=== PATIENT | female | born 1965 | race Caucasian/White ===

== ENCOUNTER 2023-07-02 22:22 | Emergency (ER) | payer OTHER ==
[2023-07-02] MEDS ORDERED: SUBLIMAZE 100 MCG/2 ML IV ONE (22:42)
[2023-07-02] MEDS ORDERED: BENADRYL 50 MG/ML IV ONE (22:42)
[2023-07-02] MEDS ORDERED: Sodium Chloride 0.9% 1000 ML 1,000 ML IV STA (22:42)
[2023-07-02 22:56] LABS: Hematocrit 40.8 % (35-47); Mean Cell Volume 86.1 fL (78-100); Mean Corpuscular Hemoglobin 29.5 pg (26-32); Mean Corpuscular Hgb Concent. 34.3 g/dL (32-36); Mean Platelet Volume 9.8 fL (7.5-11.0); Platelet Count 504 x10^3/uL (150-450); Red Blood Count 4.74 x10^6/uL (4.1-5.4); Red Cell Distribution Width 13.3 % (11.5-14.0)
[2023-07-02 22:57] LABS: White Blood Count 27.6 x10^3/uL (4.0-10.5)
--- NOTE | 2023-07-02 23:04 | ERPHSYRPT ---
- History of Present Illness Time Seen by Provider: 07/02/23 22:31 Historian: patient Exam Limitations: no limitations Patient Subjective Stated Complaint: pt states that around noon today she started having bilat lower abd/ pelvic, and mid lower back pain that she current ly rates at 9/10 and describes as a constant stabbing/ sharp pain. around noon she took a couple of laxatives, then a couple more laxatives around 1800, and 4mg ODT zofran around 1500. pt thought she was constipated but had a normal for her BM today. decreased appetite today due to pain, reports pain with urination. Triage Nursing Assessment: pt ambulated to room 8 independently with slow steady gait after standing on scales for weight acquisition. pt denies needing to u rinate at this time but is aware of need for urine sample. pt walks bent over and clutching her lower abdomen. pt is alert and oriented times three, able to move all extremities, able to speak in complete sentences, and with resp even and unlabored. pt writhing in bed, frequently changing position, moaning as she clutches her lower abdomen. abd is soft, obese, tender to touch, with positive bowel sounds in all quadrants. states pain radiates to bilat pelvis and it is painful to urinate. denies sob, difficulty breathing, cp, lightheadeness, or dizziness. Physician History: Patient had a sudden onset of lower abdominal pain 10 hours prior to come the emergency department that has persisted. She thought she may have been constipated but had a bowel movement today. Timing/Duration: hour(s) (10) Activities at Onset: none Quality: sharpness, stabbing Abdominal Pain Onset Location: RLQ, LLQ, suprapubic Pain Radiation: no radiation Severity of Pain-Max: severe Severity of Pain-Current: severe Modifying Factors: Improves With: nothing Associated Symptoms: No back, No chest pain, No diaphoresis, No diarrhea, No fever/chills, No headache, No heartburn, No loss of appetite, No nausea, No neck pain, No shortness of breath, No syncope, No vomiting, No weakness Previous symptoms: no prior history, no recent treatment Allergies/Adverse Reactions: ciprofloxacin [From Cipro] Allergy (Verified 07/02/23 22:31) Hives Home Medications: ALPRAZolam 1 MG [Xanax 1 mg] 1 mg PO TID 07/02/23 [History] Atorvastatin Calcium [Lipitor] 10 mg PO HS 07/02/23 [History] Clonidine HCl 0.1 mg [Clonidine 0.1 mg Tablet] 2 tab PO BID 07/02/23 [History] Fenofibrate 160 mg PO HS 07/02/23 [History] Fluoxetine HCl 20 mg [Prozac 20 MG] 20 mg PO DAILY 07/02/23 [History] Omeprazole Magnesium [Prilosec Otc] 20 mg PO DAILY 07/02/23 [History] Ondansetron ODT 4 MG [Zofran Odt 4 mg] 4 mg PO BID PRN PRN 07/02/23 [History] Quetiapine Fumarate [Seroquel] 300 mg PO HS PRN PRN 07/02/23 [History] Hx Tetanus, Diphtheria Vaccination/Date Given: Yes (UNKNOWN) Hx Influenza Vaccination/Date Given: Yes Hx Pneumococcal Vaccination/Date Given: No Immunizations Up to Date: Yes Travel Risk - International Travel Have you traveled outside of the country in past 3 weeks: No - Coronavirus Screening Are you exhibiting any of the following symptoms?: No Close contact with a COVID-19 positive Pt in past 14-21 Days: No - Vaccine Status Have you recieved a Covid-19 vaccination: Yes Entry Operator: Moderna - Vaccination Dates Date of 2cond Vaccination (if applicable): unknown - Review of Systems Constitutional: No Fever, No Chills Eyes: No Symptoms, No Eye Pain, No Vision Changes Ears, Nose, & Throat: No Symptoms, No Nose Congestion, No Mouth Pain, No Throat Pain Respiratory: No Cough, No Dyspnea Cardiac: No Chest Pain, No Edema, No Syncope Abdominal/Gastrointestinal: Abdominal Pain, No Nausea, No Vomiting, No Diarrhea, No Hematemesis, No Hematochezia, No Melena Genitourinary Symptoms: Dysuria, No Hematuria, No Flank Pain, No Vaginal Discharge Musculoskeletal: No Back Pain, No Neck Pain Skin: No Rash Neurological: No Dizziness, No Focal Weakness, No Sensory Changes Psychological: No Symptoms Endocrine: No Symptoms All Other Systems: Reviewed and Negative - Past Medical History Pertinent Past Medical History: Yes Neurological History: No Pertinent History ENT History: No Pertinent History Cardiac History: No Pertinent History Respiratory History: No Pertinent History Endocrine Medical History: No Pertinent History Musculoskeletal History: Arthritis, Fractures GI Medical History: Diverticulitis, Diverticulosis, GERD History: No Pertinent History Psycho-Social History: Anxiety, Depression Female Reproductive Disorders: Endometriosis Other Medical History: HISTORY OF RECENT BLOCKAGE 2012 - Past Surgical History Past Surgical History: Yes Neuro Surgical History: No Pertinent History Cardiac: No Pertinent History Respiratory: No Pertinent History Gastrointestinal: Cholecystectomy, Other Genitourinary: No Pertinent History Musculoskeletal: Orthopedic Surgery Female Surgical History: Hysterectomy Other Surgical History: Fracture of R foot in 2010. ex lap. bowel obstruction repair. - Social History Smoking Status: Current every day smoker How long have you smoked: 2012 Exposure to second hand smoke: Yes Alcohol Use: Socially Drug Use: none Patient Lives Alone: No Significant Family History: no pertinent family hx - Nursing Vital Signs Nursing Vital Signs: Initial Vital Signs Temperature 97.3 F 07/02/23 22:31 Pulse Rate 95 H 07/02/23 22:31 Respiratory Rate 20 07/02/23 22:31 Blood Pressure 112/78 07/02/23 22:31 O2 Sat by Pulse Oximetry 99 07/02/23 22:31 Pain Scale Pain Intensity 9 - Physical Exam General Appearance: no apparent distress, alert Eye Exam: PERRL/EOMI, eyes nml inspection, No scleral icterus Ears, Nose, Throat Exam: normal ENT inspection, pharynx normal, moist mucous membranes, No dry mucous membranes Neck Exam: normal inspection, non-tender, supple, full range of motion Respiratory Exam: normal breath sounds, lungs clear, No respiratory distress Cardiovascular Exam: regular rate/rhythm, normal heart sounds, normal peripheral pulses, capillary refill <2 sec Gastrointestinal/Abdomen Exam: soft, normal bowel sounds, No tenderness, No mass, No guarding, No ecchymosis, No rebound Back Exam: normal inspection, normal range of motion, No CVA tenderness, No v ertebral tenderness Extremity Exam: normal inspection, normal range of motion, pelvis stable Neurologic Exam: alert, oriented x 3, cooperative, hand developer II-XII nml as tested, normal mood/affect, sensation nml, No motor deficits Skin Exam: normal color, warm, dry, No rash, No petechiae, No jaundice SpO2 Interpretation: normal SpO2: 99 O2 Delivery: Room Air - Course Nursing assessment & vital signs reviewed: Yes - CT Exams Abdomen/Pelvis CT Interpretation: No appendicitis, Other (Hepatic steatosis; fecal loaded large colon; no significant changes since previous study dated 10/07/2013) Ordered Tests: Active Orders 24 hr Category Date Time Status IV Insertion STAT Care 07/02/23 22:42 Active ABDOMEN AND PELVIS W/0 CONTRAS [CT] Stat Exams 07/02/23 22:42 Completed CBC W DIFF Stat Lab 07/02/23 22:50 Completed CMP Stat Lab 07/02/23 22:50 Completed LIPASE Stat Lab 07/02/23 22:50 Completed Lactic Acid Stat Lab 07/02/23 23:30 Completed Lactic Acid Stat Lab 07/03/23 01:33 Received Manual Differential NC Stat Lab 07/02/23 22:50 Completed PROTIME WITH INR Stat Lab 07/02/23 22:50 Completed TROPONIN Q4H Lab 07/02/23 22:50 Completed TROPONIN Q4H Lab 07/03/23 02:45 Ordered TROPONIN Q4H Lab 07/03/23 06:45 Ordered UA W/RFX UR CULTURE Stat Lab 07/02/23 00:58 Completed Medication Summary Discontinued Medications Generic Name Dose Route Start Last Admin Trade Name Freq PRN Reason Stop Dose Admin Diphenhydramine HCl 25 mg 07/02/23 22:42 07/02/23 23:12 Diphenhydramine Hcl 50 Mg/Ml Vial IV 07/02/23 22:43 25 mg STAT ONE Administration Diphenhydramine HCl Confirm 07/02/23 23:09 Diphenhydramine Hcl 50 Mg/Ml Vial Administered 07/02/23 23:10 Dose 50 mg .ROUTE .STK-MED ONE Fentanyl Citrate 50 mcg 07/02/23 22:42 07/02/23 23:11 Fentanyl Citrate 100 Mcg/2 Ml* Vial IV 07/02/23 22:43 50 mcg STAT ONE Administration Fentanyl Citrate Confirm 07/02/23 23:09 Fentanyl Citrate 100 Mcg/2 Ml* Vial Administered 07/02/23 23:10 Dose 100 mcg .ROUTE .STK-MED ONE Hydromorphone HCl 1 mg 07/02/23 23:51 07/03/23 01:11 Hydromorphone 1 Mg/1ml Inj IV 07/02/23 23:52 Not Given STAT ONE Hydromorphone HCl 1 mg 07/03/23 01:04 07/03/23 01:09 Hydromorphone 1 Mg/1ml Inj SQ 07/03/23 01:05 1 mg STAT ONE Administration Hydromorphone HCl Confirm 07/03/23 01:06 Hydromorphone 1 Mg/1ml Inj Administered 07/03/23 01:07 Dose 1 mg .ROUTE .STK-MED ONE Sodium Chloride 1,000 mls @ 999 mls/hr 07/02/23 22:42 07/03/23 00:27 Sodium Chloride 0.9% 1000 Ml IV 07/02/23 23:42 Infused .Q1H1M STA Infusion Sodium Chloride Confirm 07/02/23 23:09 Sodium Chloride 0.9% 1000 Ml Administered 07/02/23 23:10 Dose 1,000 mls @ ud .ROUTE .STK-MED ONE Lab/Rad Data: Laboratory Result Diagrams 07/02/23 22:50 07/02/23 22:50 Laboratory Results 07/02/23 07/02/23 07/02/23 Range/Units 23:30 22:50 22:50 WBC (4.0-10.5) x10^3/uL RBC (4.1-5.4) x10^6/uL Hgb (12.0-16.0) g/dL Hct (35-47) % MCV (78-100) fL MCH (26-32) pg MCHC (32-36) g/dL RDW (11.5-14.0) % Plt Count (150-450) x10^3/uL MPV (7.5-11.0) fL Segmented Neutrophils (36.0-66.0) % Lymphocytes (Manual) (24-44) % Monocytes (Manual) (0.0-12.0) % Eosinophils (Manual) (0.00-3.0) % Basophils (Manual) (0.0-1.0) % Platelet Estimate (NORMAL) RBC Morphology PT 10.3 (9.4-12.5) SECONDS INR 0.94 (0.8-3.0) Sodium (137-145) mmol/L Potassium (3.5-5.1) mmol/L Chloride (98-107) mmol/L Carbon Dioxide (22-30) mmol/L Anion Gap (5-15) MEQ/L BUN (7-17) mg/dL Creatinine (0.52-1.04) mg/dL Estimated GFR ML/MIN Glucose (74-106) mg/dL Lactic Acid 1.9 (0.4-2.0) Calcium (8.4-10.2) mg/dL Total Bilirubin (0.2-1.3) mg/dL AST (14-36) U/L ALT (0-35) U/L Alkaline Phosphatase (38-126) U/L Troponin I < 0.012 (0.000-0.034) ng/mL Serum Total Protein (6.3-8.2) g/dL Albumin (3.5-5.0) g/dL Lipase (23-300) U/L Urine Color (Yellow) Urine Appearance (Clear) Urine pH (4.6-8.0) Ur Specific [place] (1.005-1.030) Urine Protein (Negative) Urine Glucose (UA) (Negative) mg/dL Urine Ketones (Negative) Urine Blood (Negative) Urine Nitrite (Negative) Urine Bilirubin (Negative) Urine Urobilinogen (0.2) mg/dL Ur Leukocyte Esterase (Negative) U Hyaline Cast (Auto) (0-2) /LPF Urine Microscopic RBC (0-5) /HPF Urine Microscopic WBC (0-5) /HPF Ur Epithelial Cells (None Seen) /HPF Urine Bacteria (None Seen) /HPF Urine Culture Reflexed (NO) 07/02/23 07/02/23 07/02/23 Range/Units 22:50 22:50 00:58 WBC 27.6 H* (4.0-10.5) x10^3/uL RBC 4.74 (4.1-5.4) x10^6/uL Hgb 14.0 (12.0-16.0) g/dL Hct 40.8 (35-47) % MCV 86.1 (78-100) fL MCH 29.5 (26-32) pg MCHC 34.3 (32-36) g/dL RDW 13.3 (11.5-14.0) % Plt Count 504 H (150-450) x10^3/uL MPV 9.8 (7.5-11.0) fL Segmented Neutrophils 74 H (36.0-66.0) % Lymphocytes (Manual) 22 L (24-44) % Monocytes (Manual) 2 (0.0-12.0) % Eosinophils (Manual) 1 (0.00-3.0) % Basophils (Manual) 1 (0.0-1.0) % Platelet Estimate INCREASED (NORMAL) RBC Morphology NORMAL PT (9.4-12.5) SECONDS INR (0.8-3.0) Sodium 136 L (137-145) mmol/L Potassium 3.9 (3.5-5.1) mmol/L Chloride 105 (98-107) mmol/L Carbon Dioxide 19 L (22-30) mmol/L Anion Gap 15.6 H (5-15) MEQ/L BUN 15 (7-17) mg/dL Creatinine 1.09 H (0.52-1.04) mg/dL Estimated GFR 55.4 ML/MIN Glucose 113 H (74-106) mg/dL Lactic Acid (0.4-2.0) Calcium 8.8 (8.4-10.2) mg/dL Total Bilirubin 0.40 (0.2-1.3) mg/dL AST 23 (14-36) U/L ALT 21 (0-35) U/L Alkaline Phosphatase 88 (38-126) U/L Troponin I (0.000-0.034) ng/mL Serum Total Protein 7.2 (6.3-8.2) g/dL Albumin 4.4 (3.5-5.0) g/dL Lipase 30 (23-300) U/L Urine Color Yellow (Yellow) Urine Appearance Clear (Clear) Urine pH 6.0 (4.6-8.0) Ur Specific [place] 1.010 (1.005-1.030) Urine Protein Negative (Negative) Urine Glucose (UA) Negative (Negative) mg/dL Urine Ketones Negative (Negative) Urine Blood Negative (Negative) Urine Nitrite Negative (Negative) Urine Bilirubin Negative (Negative) Urine Urobilinogen 0.2 (0.2) mg/dL Ur Leukocyte Esterase Trace A (Negative) U Hyaline Cast (Auto) NONE SEEN (0-2) /LPF Urine Microscopic RBC 0-2 (0-5) /HPF Urine Microscopic WBC 6-10 A (0-5) /HPF Ur Epithelial Cells None Seen (None Seen) /HPF Urine Bacteria Few A (None Seen) /HPF Urine Culture Reflexed NO (NO) - Progress Progress: improved, re-examined Progress Note: 07/02/23 23:44 Patient's pain and nausea have improved significantly after medication and she does not request any other medication at this time 07/03/23 01:36 Patient feels much better and has no tenderness, guarding or rebound on repeat abdominal examination. I reviewed her lab results and her CT scan results 07/03/23 01:42 Patient is a 57-year-old female came in emergency room due to having severe lower abdominal pain through most of the day of 07/03/2023. Patient had elevated white blood cell count, and so with her symptoms and elevated white blood cell count, CT of the abdomen pelvis was performed but did not show any etiology to her symptoms as there is no significant change in comparison to previous CT scan of the abdomen pelvis from 10 years earlier. Patient did have signs hepatic steatosis as well as a large stool burden throughout the colon, and this large stool burden may be causing her symptoms at this time. Patient at this time will be sent home as her pain was well controlled with IV medications given here in the emergency room and and she will be given a prescription for MiraLAX to once daily until she has diarrhea to help unload that large burden of stool seen on the CT scan imaging. Patient is return back to the nearest emergency room if she has any fever, new melena, hematochezia, new localized abdominal pain, any flank pain, new hematuria, new numbness or tingling or weakness in lower extremities, new perineal numbness, new diarrhea she cannot control, urinary ten vania, new chest pain, new dyspnea, or any other concerning signs or symptoms that were not present at today's emergency department visit for immediate reevaluation in the nearest emergency department Counseled pt/family regarding: lab results, diagnosis, need for follow-up, rad results - Departure Departure Disposition: Home Clinical Impression: Lower abdominal pain, Hepatic steatosis, Dysuria Leukocytosis, unspecified Qualifiers: Leukocytosis type: unspecified Qualified Code(s): D72.829 - Elevated white blood cell count, unspecified Constipation Qualifiers: Constipation type: unspecified constipation type Qualified Code(s): K59.00 - Constipation, unspecified Condition: Good Critical Care Time: No Referrals: HEIDI MCCARTHY NP [Primary Care Provider] - Follow up with PCP 1 day Instructions: Severe Abdominal Pain, Adult (DC), Constipation, Adult (DC), Nonalcoholic Fatty Liver Disease (DC) Additional Instructions: Return back to the nearest emergency room if you have any worsening abdominal pain, new fever, new black or red stools, any back pain, new painful urination, new blood in your urine, new shortness of breath, new chest pain, inability urinate or have a bowel movement, new diarrhea cannot control, new weakness or numbness in your legs or any other concerning signs or symptoms that were not present at today's emergency room visit for immediate reevaluation in the nearest emergency department Prescriptions: Polyethylene Glycol 3350 17 gm [Miralax Powder 17GM PACKET] 17 gm PO DAILY PRN #7 packet PRN Reason: Constipation
[2023-07-02 23:05] VITALS: RESP 20; TEMP 97.3
[2023-07-02 23:08] LABS: INR 0.94 (0.8-3.0); PROTIME 10.3 SECONDS (9.4-12.5)
[2023-07-02] MEDS ORDERED: BENADRYL 50 MG/ML ONE (23:09)
[2023-07-02] MEDS ORDERED: SUBLIMAZE 100 MCG/2 ML ONE (23:09)
[2023-07-02] MEDS ORDERED: Sodium Chloride 0.9% 1000 ML 1,000 ML ONE (23:09)
[2023-07-02 23:44] LABS: Basophil 1 % (0.0-1.0); Eosinophil 1 % (0.00-3.0); Lymphocytes 22 % (24-44); Monocyte 2 % (0.0-12.0); Neutrophils 74 % (36.0-66.0); Platelet Estimate INCREASED (NORMAL); Total Cells Counted 100
[2023-07-02 23:46] VITALS: O2SAT 99
[2023-07-02 23:47] LABS: ALBUMIN 4.4 g/dL (3.5-5.0); ANION GAP 15.6 MEQ/L (5-15); BILIRUBIN,TOTAL 0.4 mg/dL (0.2-1.3); Calcium 8.8 mg/dL (8.4-10.2); Creatinine 1 1.09 mg/dL (0.52-1.04); EST GLOMERULAR FILTRATION RATE 55.4 ML/MIN; Potassium 3.9 mmol/L (3.5-5.1); Total Protein 7.2 g/dL (6.3-8.2)
[2023-07-02] MEDS ORDERED: Hydromorphone 1 mg/ml Injection IV ONE (23:51)
[2023-07-03] MEDS ORDERED: Hydromorphone 1 mg/ml Injection SQ ONE (01:04)
[2023-07-03] MEDS ORDERED: Hydromorphone 1 mg/ml Injection ONE (01:06)
[2023-07-03 01:09] LABS: Appearance Clear (Clear); Bacteria Few /HPF (None Seen); Bilirubin Negative (Negative); Blood Negative (Negative); Epithelial Cells None Seen /HPF (None Seen); Glucose, Urine Negative (Negative); Hyaline Casts NONE SEEN /LPF (0-2); Ketones Negative (Negative); Leukocyte Esterase Trace (Negative); Nitrite Negative (Negative); Protein,Urine Dip Negative (Negative); RBC 0-2 /HPF (0-5); Urobilinogen 0.2 mg/dL (0.2)
[2023-07-03 01:10] LABS: ADD URINE CULTURE? NO (NO)
[2023-07-03 01:11] VITALS: BP 100/84; PULSE 70
--- NOTE | 2023-07-03 01:21 | XRAY ---
CLINICAL HISTORY:lower abdominal pain COMPARISON:10/07/2013. TECHNIQUE:A CT scan of the abdomen and pelvis was performed with delayed phase contrast imaging. Coronal and sagittal reconstructive images were also obtained. 35 cc Isovue 370. FINDINGS: Sections of the lower thorax show a 7 mm calcified nodule in the subpleural aspect of the right middle lobe anteriorly. Subpleural haziness and reticulation seen in the posterior aspect of both lower lobes. Abdomen. The liver is prominent in size, measuring 15.8 cm craniocaudally, and shows fatty changes. No focal or diffuse parenchymal abnormality. The portal vein, intrahepatic biliary radicals and the bile ducts are normal. The spleen, pancreas, and adrenal glands are unremarkable. The kidneys are unremarkable. They are normal in size and shape. No calculi or hydronephrosis. The gallbladder is surgically removed. The large bowel is loaded with fecal matter. The visualized small bowel loops are unremarkable. There is no evidence of significant enlargement of the mesenteric or retroperitoneal lymph nodes. Few calcified plaques are seen in the abdominal aorta. Pelvis: The urinary bladder is unremarkable. The rectosigmoid colon is unremarkable. The uterus is surgically removed. No evidence of pelvic lymphadenopathy. No significant bony abnormality was noted. IMPRESSION: 1. Hepatic steatosis 2. Fecal-loaded large colon 3. No significant interval changes seen since the previous study dated 10/07/2013. Electronically Signed by: Miquel Jane MD. (07/03/2023 00:20:58 [employer] MASTER ANALYST)
== END 2023-07-03 02:00 | disposition home or self-care (01) ==
LOC: ED 22:22
DX: R10.30 Lower abdominal pain, unspecified (principal); K76.0 Fatty (change of) liver, not elsewhere classified; R30.0 Dysuria; D72.829 Elevated white blood cell count, unspecified; K59.00 Constipation, unspecified; Z79.899 Other long term (current) drug therapy; Z72.0 Tobacco use
CPT/HCPCS: 36000; 36415; 74176; 80053; 81001; 83605; 83690; 84484; 85025; 85610; 96360; 96372; 96374; 96375; 99284; J1170; J1200; J3010

== ENCOUNTER 2023-07-03 12:28 | Observation (INO) | payer OTHER ==
[2023-07-03] MEDS ORDERED: Hydromorphone 1 mg/ml Injection IV ONE ×2 (12:46→14:06)
[2023-07-03] MEDS ORDERED: Sodium Chloride 0.9% 1000 ML 1,000 ML IV STA (12:46)
[2023-07-03] MEDS ORDERED: Zofran 4 MG/2 ML VIAL IV ONE (12:46)
[2023-07-03] MEDS ORDERED: Zofran 4 MG/2 ML VIAL ONE (12:51)
[2023-07-03] MEDS ORDERED: Hydromorphone 1 mg/ml Injection ONE ×2 (12:51→13:40)
[2023-07-03] MEDS ORDERED: Sodium Chloride 0.9% 1000 ML 1,000 ML ONE (12:51)
--- NOTE | 2023-07-03 13:09 | ERPHSYRPT ---
- History of Present Illness Time Seen by Provider: 07/03/23 12:35 Historian: patient Exam Limitations: no limitations Patient Subjective Stated Complaint: C/O lower abominal pain that radiates through to her lower middle back. States pain started around 12noon yesterday. Patient states she was in the ER yesterday but pain has increased since that time so she has returned for further evaluation. Triage Nursing Assessment: Patient brought back to ER in W/C. She is anxious and crying. Patient breathing heavy; instructed to take slow deep breaths. RAMIRES WNL. Bowel sounds present; more active on the left. Abdomen is firm. Patient denies diarrhea. States she vomited on the way into the ER today. Physician History: Crying hyperventilating 57-year-old white female who has had belly pain since yesterday. She was seen in the ER at that time she had a white count of 27,[address] scan which was only positive for constipation. She says that she had a normal bowel movement yesterday. She took MiraLAX at home this morning. Timing/Duration: yesterday Activities at Onset: none Quality: cramping, sharpness, stabbing Abdominal Pain Onset Location: generalized abdomen Pain Radiation: no radiation Severity of Pain-Max: severe Severity of Pain-Current: severe Associated Symptoms: chest pain Previous symptoms: same symptoms as today (Seen yesterday for same symptoms.) Allergies/Adverse Reactions: ciprofloxacin [From Cipro] Allergy (Verified 07/03/23 12:30) Hives Home Medications: ALPRAZolam 1 MG [Xanax 1 mg] 1 mg PO TID 07/02/23 [History] Atorvastatin Calcium [Lipitor] 10 mg PO HS 07/02/23 [History] Clonidine HCl 0.1 mg [Clonidine 0.1 mg Tablet] 2 tab PO BID 07/02/23 [History] Fenofibrate 160 mg PO HS 07/02/23 [History] Fluoxetine HCl 20 mg [Prozac 20 MG] 20 mg PO DAILY 07/02/23 [History] Omeprazole Magnesium [Prilosec Otc] 20 mg PO DAILY 07/02/23 [History] Ondansetron ODT 4 MG [Zofran Odt 4 mg] 4 mg PO BID PRN PRN 07/02/23 [History] Quetiapine Fumarate [Seroquel] 300 mg PO HS PRN PRN 07/02/23 [History] Hx Tetanus, Diphtheria Vaccination/Date Given: Yes (UNKNOWN) Hx Influenza Vaccination/Date Given: Yes Hx Pneumococcal Vaccination/Date Given: No Immunizations Up to Date: Yes Travel Risk - International Travel Have you traveled outside of the country in past 3 weeks: No - Coronavirus Screening Are you exhibiting any of the following symptoms?: No Close contact with a COVID-19 positive Pt in past 14-21 Days: No - Vaccine Status Have you recieved a Covid-19 vaccination: Yes Dumper Operator: Moderna - Vaccination Dates Date of 2cond Vaccination (if applicable): unknown - Review of Systems Constitutional: No Fever, No Chills Eyes: No Symptoms Ears, Nose, & Throat: No Symptoms Respiratory: No Cough, No Dyspnea Cardiac: Chest Pain, No Edema, No Syncope Abdominal/Gastrointestinal: Abdominal Pain, Nausea, No Vomiting, No Diarrhea Genitourinary Symptoms: No Dysuria Musculoskeletal: No Back Pain, No Neck Pain Skin: No Rash Neurological: No Dizziness, No Focal Weakness, No Sensory Changes Psychological: No Symptoms Endocrine: No Symptoms All Other Systems: Reviewed and Negative - Past Medical History Pertinent Past Medical History: Yes Neurological History: No Pertinent History ENT History: No Pertinent History Cardiac History: High Cholesterol, Hypertension Respiratory History: No Pertinent History Endocrine Medical History: No Pertinent History Musculoskeletal History: Arthritis, Fractures GI Medical History: Diverticulitis, Diverticulosis, GERD, Gallbladder Disease History: No Pertinent History Psycho-Social History: Anxiety, Depression Female Reproductive Disorders: Endometriosis Other Medical History: Bowel BLOCKAGE 2012, insomnia - Past Surgical History Past Surgical History: Yes Neuro Surgical History: No Pertinent History Cardiac: No Pertinent History Respiratory: No Pertinent History Gastrointestinal: Cholecystectomy, Other Genitourinary: No Pertinent History Musculoskeletal: Orthopedic Surgery Female Surgical History: Hysterectomy Other Surgical History: Fracture of R foot in 2010. ex lap. bowel obstruction repair. - Social History Smoking Status: Current every day smoker How long have you smoked: 2012 Exposure to second hand smoke: Yes Alcohol Use: Socially Drug Use: none Patient Lives Alone: No Significant Family History: no pertinent family hx - Nursing Vital Signs Nursing Vital Signs: Initial Vital Signs Temperature 98.3 F 07/03/23 12:29 Pulse Rate 112 H 07/03/23 12:29 Respiratory Rate 30 H 07/03/23 12:29 Blood Pressure 149/78 07/03/23 12:29 O2 Sat by Pulse Oximetry 98 07/03/23 12:29 Pain Scale Pain Intensity 10 - Physical Exam General Appearance: moderate distress, alert Eye Exam: PERRL/EOMI, eyes nml inspection, other (Crying and hyperventilating) Ears, Nose, Throat Exam: normal ENT inspection, pharynx normal, moist mucous membranes Neck Exam: normal inspection, non-tender, supple, full range of motion Respiratory Exam: normal breath sounds, lungs clear, other (Hyperventilation), No respiratory distress Cardiovascular Exam: regular rate/rhythm, normal heart sounds Gastrointestinal/Abdomen Exam: tenderness, distention, guarding, rebound, other (Tympanitic), No mass Back Exam: normal inspection, normal range of motion, No CVA tenderness, No vertebral tenderness Extremity Exam: normal inspection, normal range of motion, pelvis stable Neurologic Exam: alert, oriented x 3, cooperative, normal mood/affect, nml cerebellar function, sensation nml, No motor deficits Skin Exam: normal color, warm, dry SpO2 Interpretation: normal SpO2: 98 O2 Delivery: Room Air - Course Nursing assessment & vital signs reviewed: Yes EKG Interpreted by Me: RATE ( 95), Sinus Rhythm, NORMAL AXIS, NORMAL INTERVALS, Non-specific ST Changes - CT Exams Chest CT Interpretation: Negative, Other (Reviewed by me) Abdomen/Pelvis CT Interpretation: Other (Reviewed by me) Ordered Tests: Active Orders 24 hr Category Date Time Status EKG-ER Only STAT Care 07/03/23 12:46 Active IV Insertion STAT Care 07/03/23 12:46 Active ABDOMEN AND PELVIS W/0 CONTRAS [CT] Stat Exams 07/03/23 12:47 Completed CHEST 1 VIEW (PORTABLE) Stat Exams 07/03/23 12:47 Completed PELVIC [US] Stat Exams 07/03/23 15:05 Stop Req AMYLASE Stat Lab 07/03/23 12:50 Completed CBC W DIFF Stat Lab 07/03/23 12:50 Completed CMP Stat Lab 07/03/23 12:50 Completed LIPASE Stat Lab 07/03/23 12:50 Completed Lactic Acid Stat Lab 07/03/23 12:50 Completed Lactic Acid Stat Lab 07/03/23 15:04 Stop Req PROTIME WITH INR Stat Lab 07/03/23 12:50 Completed TROPONIN Q4H Lab 07/03/23 12:50 Completed TROPONIN Q4H Lab 07/03/23 17:00 Ordered TROPONIN Q4H Lab 07/03/23 21:00 Ordered UA W/RFX UR CULTURE Stat Lab 07/03/23 12:47 Ordered Urine Triage Profile Stat Lab 07/03/23 12:47 Ordered Medication Summary Discontinued Medications Generic Name Dose Route Start Last Admin Trade Name Armando PRN Reason Stop Dose Admin Dicyclomine HCl 20 mg 07/03/23 14:43 07/03/23 14:45 Dicyclomine Hcl 20 Mg Tablet PO 07/03/23 14:44 20 mg STAT ONE Administration Dicyclomine HCl Confirm 07/03/23 14:44 Dicyclomine Hcl 20 Mg Tablet Administered 07/03/23 14:45 Dose 20 mg .ROUTE .STK-MED ONE Hydromorphone HCl 1 mg 07/03/23 12:46 07/03/23 12:53 Hydromorphone 1 Mg/1ml Inj IV 07/03/23 12:47 1 mg STAT ONE Administration Hydromorphone HCl Confirm 07/03/23 12:51 Hydromorphone 1 Mg/1ml Inj Administered 07/03/23 12:52 Dose 1 mg .ROUTE .STK-MED ONE Hydromorphone HCl Confirm 07/03/23 13:40 Hydromorphone 1 Mg/1ml Inj Administered 07/03/23 13:41 Dose 1 mg .ROUTE .STK-MED ONE Hydromorphone HCl 1 mg 07/03/23 14:06 07/03/23 13:41 Hydromorphone 1 Mg/1ml Inj IV 07/03/23 14:07 1 mg STAT ONE Administration Sodium Chloride 1,000 mls @ 999 mls/hr 07/03/23 12:46 07/03/23 13:57 Sodium Chloride 0.9% 1000 Ml IV 07/03/23 13:46 Infused .Q1H1M STA Infusion Sodium Chloride Confirm 07/03/23 12:51 Sodium Chloride 0.9% 1000 Ml Administered 07/03/23 12:52 Dose 1,000 mls @ ud .ROUTE .STK-MED ONE Ondansetron HCl 4 mg 07/03/23 12:46 07/03/23 12:53 Ondansetron Hcl 4 Mg/2 Ml Vial IV 07/03/23 12:47 4 mg STAT ONE Administration Ondansetron HCl Confirm 07/03/23 12:51 Ondansetron Hcl 4 Mg/2 Ml Vial Administered 07/03/23 12:52 Dose 4 mg .ROUTE .STK-MED ONE Lab/Rad Data: Laboratory Result Diagrams 07/03/23 12:50 07/03/23 12:50 Laboratory Results 07/03/23 07/03/23 07/03/23 Range/Units 12:50 12:50 12:50 WBC (4.0-10.5) x10^3/uL RBC (4.1-5.4) x10^6/uL Hgb (12.0-16.0) g/dL Hct (35-47) % MCV (78-100) fL MCH (26-32) pg MCHC (32-36) g/dL RDW (11.5-14.0) % Plt Count (150-450) x10^3/uL MPV (7.5-11.0) fL Gran % (36.0-66.0) % Immature Gran % (Auto) (0.00-0.4) % Nucleat RBC Rel Count (0.00-0.1) % Eos # (Auto) (0-0.5) x10^3/uL Immature Gran # (Auto) (0.00-0.03) x10^3u/L Absolute Lymphs (auto) (1.0-4.6) x10^3/uL Absolute Monos (auto) (0.0-1.3) x10^3/uL Absolute Nucleated RBC (0.00-0.01) x10^3u/L Lymphocytes % (24.0-44.0) % Monocytes % (0.0-12.0) % Eosinophils % (0.00-5.0) % Basophils % (0.0-0.4) % Absolute Granulocytes (1.4-6.9) x10^3/uL Basophils # (0-0.4) x10^3/uL PT 10.3 (9.4-12.5) SECONDS INR 0.94 (0.8-3.0) Sodium 139 (137-145) mmol/L Potassium 3.5 (3.5-5.1) mmol/L Chloride 107 (98-107) mmol/L Carbon Dioxide 20 L (22-30) mmol/L Anion Gap 16.1 H (5-15) MEQ/L BUN 15 (7-17) mg/dL Creatinine 0.93 (0.52-1.04) mg/dL Estimated GFR > 60.0 ML/MIN Glucose 111 H (74-106) mg/dL Lactic Acid (0.4-2.0) Calcium 8.6 (8.4-10.2) mg/dL Total Bilirubin 0.60 (0.2-1.3) mg/dL AST 24 (14-36) U/L ALT 20 (0-35) U/L Alkaline Phosphatase 93 (38-126) U/L Troponin I < 0.012 (0.000-0.034) ng/mL Serum Total Protein 7.1 (6.3-8.2) g/dL Albumin 4.4 (3.5-5.0) g/dL Amylase 55 (30-110) U/L Lipase 29 (23-300) U/L 07/03/23 07/03/23 Range/Units 12:50 12:50 WBC 24.2 H (4.0-10.5) x10^3/uL RBC 4.56 (4.1-5.4) x10^6/uL Hgb 13.5 (12.0-16.0) g/dL Hct 39.4 (35-47) % MCV 86.4 (78-100) fL MCH 29.6 (26-32) pg MCHC 34.3 (32-36) g/dL RDW 13.3 (11.5-14.0) % Plt Count 478 H (150-450) x10^3/uL MPV 9.8 (7.5-11.0) fL Gran % 87.1 H (36.0-66.0) % Immature Gran % (Auto) 0.5 H (0.00-0.4) % Nucleat RBC Rel Count 0.0 (0.00-0.1) % Eos # (Auto) 0.01 (0-0.5) x10^3/uL Immature Gran # (Auto) 0.13 H (0.00-0.03) x10^3u/L Absolute Lymphs (auto) 1.75 (1.0-4.6) x10^3/uL Absolute Monos (auto) 1.15 (0.0-1.3) x10^3/uL Absolute Nucleated RBC 0.00 (0.00-0.01) x10^3u/L Lymphocytes % 7.2 L (24.0-44.0) % Monocytes % 4.8 (0.0-12.0) % Eosinophils % 0.0 (0.00-5.0) % Basophils % 0.4 (0.0-0.4) % Absolute Granulocytes 21.06 H (1.4-6.9) x10^3/uL Basophils # 0.09 (0-0.4) x10^3/uL PT (9.4-12.5) SECONDS INR (0.8-3.0) Sodium (137-145) mmol/L Potassium (3.5-5.1) mmol/L Chloride (98-107) mmol/L Carbon Dioxide (22-30) mmol/L Anion Gap (5-15) MEQ/L BUN (7-17) mg/dL Creatinine (0.52-1.04) mg/dL Estimated GFR ML/MIN Glucose (74-106) mg/dL Lactic Acid 1.9 (0.4-2.0) Calcium (8.4-10.2) mg/dL Total Bilirubin (0.2-1.3) mg/dL AST (14-36) U/L ALT (0-35) U/L Alkaline Phosphatase (38-126) U/L Troponin I (0.000-0.034) ng/mL Serum Total Protein (6.3-8.2) g/dL Albumin (3.5-5.0) g/dL Amylase (30-110) U/L Lipase (23-300) U/L - Progress Progress: pain not gone completely Medical Desision Making - Discussion of managment Care discussed with:: on-call "doc" Reviewed:: Test results Agreed on:: Treatment plan, decision to admit Will see patient: in hospital - Diagnostic Testing Diagnostic test were ordered, analyzed, and reviewed by me: Yes Radiological Interpretation: Reviewed by me - Risk of complications Low Risk: Low risk of morbidity from additional dx testing or treatment - Departure Departure Disposition: Observation Clinical Impression: Abdominal pain, Leukocytosis, Constipation Condition: Stable Critical Care Time: No Referrals: HEIDI MCCARTHY NP [Primary Care Provider] - Follow up/PCP as directed
[2023-07-03 13:16] LABS: INR 0.94 (0.8-3.0); PROTIME 10.3 SECONDS (9.4-12.5)
[2023-07-03 13:21] LABS: Absolute Neutrophil Ct (ANC) 21.06 x10^3/uL (1.4-6.9); BASOPHIL % 0.4 % (0.0-0.4); Basophil (Absolute #) 0.09 x10^3/uL (0-0.4); Eosinophil (Absolute #) 0.01 x10^3/uL (0-0.5); Hematocrit 39.4 % (35-47); Hemoglobin 13.5 g/dL (12.0-16.0); IMMATURE GRAN # 0.13 x10^3u/L (0.00-0.03); IMMATURE GRAN % 0.5 % (0.00-0.4); Lymphocyte (Absolute #) 1.75 x10^3/uL (1.0-4.6); Lymphocytes % 7.2 % (24.0-44.0); Mean Cell Volume 86.4 fL (78-100); Mean Corpuscular Hemoglobin 29.6 pg (26-32); Mean Corpuscular Hgb Concent. 34.3 g/dL (32-36); Mean Platelet Volume 9.8 fL (7.5-11.0); Monocyte (Absolute #) 1.15 x10^3/uL (0.0-1.3); Monocytes % 4.8 % (0.0-12.0); Neutrophil % 87.1 % (36.0-66.0); Platelet Count 478 x10^3/uL (150-450); Red Blood Count 4.56 x10^6/uL (4.1-5.4); Red Cell Distribution Width 13.3 % (11.5-14.0); White Blood Count 24.2 x10^3/uL (4.0-10.5)
[2023-07-03 13:35] LABS: ALBUMIN 4.4 g/dL (3.5-5.0); ALKALINE PHOSPHATASE 93 U/L (38-126); AMYLASE 55 U/L (30-110); ANION GAP 16.1 MEQ/L (5-15); BLOOD UREA NITROGEN 15 mg/dL (7-17); CHLORIDE 107 mmol/L (98-107); Calcium 8.6 mg/dL (8.4-10.2); Carbon Dioxide 20 mmol/L (22-30); Creatinine 1 0.93 mg/dL (0.52-1.04); EST GLOMERULAR FILTRATION RATE > 60.0 ML/MIN; Glucose 111 mg/dL (74-106); LIPASE 29 U/L (23-300); Potassium 3.5 mmol/L (3.5-5.1); SGOT/AST 24 U/L (14-36); SGPT/ALT 20 U/L (0-35); SODIUM 139 mmol/L (137-145); Total Protein 7.1 g/dL (6.3-8.2)
--- NOTE | 2023-07-03 14:35 | XRAY ---
Indication: Lower abdomen pain. Multiple contiguous axial images obtained through the abdomen and pelvis without contrast. Comparison: July 02, 2023 Lung bases again demonstrates dependent atelectasis. Heart not enlarged. Noncontrasted stomach and bowel loops remain nonobstructed again with normal appendix. Previous diffuse fecal stasis improve with mild residual in the sigmoid. Residual contrast in the system from contrasted CT abdomen/pelvis 1 day earlier. Again fatty liver, cholecystectomy, and hysterectomy. No free fluid/air. Remaining liver, pancreas, spleen, adrenal glands, kidneys, ureters, and bladder are unremarkable. Stable minimal aortoiliac calcifications without AAA. Impression: Compared to ER CT exam one day earlier, improved fecal stasis. Stable fatty liver. Remaining CT abdomen/pelvis without contrast exam again negative.
--- NOTE | 2023-07-03 14:35 | XRAY ---
Indication: Chest pain and short of breath. Comparison: September 19, 2013 Portable chest again demonstrates normal heart and lungs. Bony thorax intact. No new/acute findings.
[2023-07-03] MEDS ORDERED: BENTYL 20 MG PO ONE (14:43)
[2023-07-03] MEDS ORDERED: BENTYL 20 MG ONE (14:44)
[2023-07-03 15:50] LABS: Appearance Clear (Clear); Bacteria Many /HPF (None Seen); Bilirubin Negative (Negative); Blood Negative (Negative); Epithelial Cells None Seen /HPF (None Seen); Glucose, Urine Negative (Negative); Ketones Trace (Negative); Leukocyte Esterase Moderate (Negative); Nitrite Positive (Negative); Ph 7.5 (4.6-8.0); Protein,Urine Dip Trace (Negative); Specific Gravity 1.025 (1.005-1.030); WBC 21-50 /HPF (0-5)
[2023-07-03 16:02] LABS: Amphetamine,Urine NEGATIVE (NEGATIVE); Barbiturate,Urine NEGATIVE (NEGATIVE); Benzodiazepine,Urine POSITIVE (NEGATIVE); Cocaine,Urine NEGATIVE (NEGATIVE); Methadone,Urine NEGATIVE (NEGATIVE); Opiate,Urine POSITIVE (NEGATIVE); PCP,Urine NEGATIVE (NEGATIVE); THC,Urine POSITIVE (NEGATIVE)
[2023-07-03 16:08] LABS: ADD URINE CULTURE? ORDERED SEPARATELY (NO)
[2023-07-03 16:08] LABS: Slide Review 1 YES
--- NOTE | 2023-07-03 16:49 | PCM.HP ---
History of Present Illness - Chief Complaint Chief Complaint: Abdominal pain Date: 07/03/23 History of Present Illness: is a 57 year old female with a pmhx of depression, anxiety, and smoker presenting with complaints of low back pain, abdominal pain, dysuria, nausea, and vomiting. Onset one day ago. Patient describes her abdominal pain as pressure-like/cramping with radiation to her low back. She was seen in ER 07/02/23 with a wbc of 27, CT of abd/pelvis remarkable for constipation. Patient states that the pain became severe this afternoon which brought her to revisit the ER. In Er, patient is tachycardic, slightly hypertensive, and afebrile. Repeat CT of ab/pelvis compared to ER CT exam one day earlier, shows improved fecal stasis. Stable fatty liver. Remaining CT abdomen/pelvis without contrast exam again negative. CXR negative for acute cardiopulmonary findings. Laboratory findings remarkable for a WBC of 24.2, plt 448, and UA suspicious for infection. Patient was given dicylomine, droperidol, diluadid, zofran, and a fluid bolus in ER. PCP: Faith Canas Code Status: Full Code - Review of Systems Constitutional: No Symptoms Eyes: No Symptoms Ears, Nose, & Throat: No Symptoms Respiratory: Short Of Breath Cardiac: No Symptoms Abdominal/Gastrointestinal: Abdominal Pain, Nausea, Vomiting, Constipation Genitourinary Symptoms: Dysuria, Frequency, Urgency Musculoskeletal: Back Pain Skin: No Symptoms Neurological: No Symptoms Psychological: Anxiety, Depression Medications & Allergies Home Medications: Home Medication List ALPRAZolam 1 MG [Xanax 1 mg] 1 mg PO TID 07/02/23 [History Confirmed 07/03/23] Atorvastatin Calcium [Lipitor] 10 mg PO HS 07/02/23 [History Confirmed 07/03/23] Clonidine HCl 0.1 mg [Clonidine 0.1 mg Tablet] 2 tab PO BID 07/02/23 [History Confirmed 07/03/23] Fenofibrate 160 mg PO HS 07/02/23 [History Confirmed 07/03/23] Fluoxetine HCl 20 mg [Prozac 20 MG] 20 mg PO DAILY 07/02/23 [History Confirmed 07/03/23] Omeprazole Magnesium [Prilosec Otc] 20 mg PO DAILY 07/02/23 [History Confirmed 07/03/23] Ondansetron ODT 4 MG [Zofran Odt 4 mg] 4 mg PO BID PRN PRN 07/02/23 [History Confirmed 07/03/23] Quetiapine Fumarate [Seroquel] 300 mg PO HS PRN PRN 07/02/23 [History Confirmed 07/03/23] Polyethylene Glycol 3350 17 gm [Miralax Powder 17GM PACKET] 17 gm PO DAILY PRN #7 packet 07/03/23 [Rx Confirmed 07/03/23] Allergies/Adverse Reactions: Allergies Allergy/AdvReac Type Severity Reaction Status Date / Time ciprofloxacin [From Cipro] Allergy Hives Verified 07/03/23 12:30 - Past Medical History Past Medical History: Yes Neurological History: No Pertinent History ENT History: No Pertinent History Cardiac History: High Cholesterol, Hypertension Respiratory History: No Pertinent History Endocrine Medical History: No Pertinent History Musculoskelatal History: Arthritis, Fractures GI Medical History: Diverticulitis, Diverticulosis, GERD, Gallbladder Disease History: No Pertinent History Pyscho-Social History: Anxiety, Depression Reproductive Disorders: Endometriosis Comment: Bowel BLOCKAGE 2012, insomnia - Female History Are you now?: No - Past Surgical History Past Surgical History: Yes Neuro Surgical History: No Pertinent History Cardiac History: No Pertinent History Respiratory Surgery: No Pertinent History GI Surgical History: Cholecystectomy, Other Genitourinary Surgical Hx: No Pertinent History Musculskeletal Surgical Hx: Orthopedic Surgery Female Surgical History: Hysterectomy Other Surgical History: Fracture of R foot in 2010. ex lap. bowel obstruction repair. - Social History Smoking Status: Former smoker How long have you smoked: 2012 Exposure to second hand smoke: Yes Alcohol: None Drug Use: none Significant Family History: no pertinent family hx - Physical Exam Vital Signs: Vital Signs - 24 hr Temp Pulse Resp BP BP Pulse Ox 07/03/23 15:51 98.3 F 112 H 149/78 98 07/03/23 15:45 98.6 F 94 H 16 130/60 94 L 07/03/23 15:28 98 07/03/23 15:02 117/86 07/03/23 15:01 98 07/03/23 14:30 109/80 07/03/23 12:29 98.3 F 112 H 30 H 149/78 98 General Appearance: moderate distress Neurologic Exam: alert, oriented x 3, cooperative Eye Exam: PERRL/EOMI Ears, Nose, Throat Exam: normal ENT inspection Neck Exam: normal inspection Respiratory Exam: normal breath sounds Cardiovascular Exam: regular rate/rhythm, normal heart sounds Gastrointestinal/Abdomen Exam: soft (TTP x RLQ and LLQ), normal bowel sounds, tenderness Pelvic Exam: not done Results - Labs Lab/Micro Results: Lab Results-Last 24 Hours 07/03/23 07/03/23 07/03/23 Range/Units 12:50 12:50 12:50 WBC 24.2 H (4.0-10.5) x10^3/uL RBC 4.56 (4.1-5.4) x10^6/uL Hgb 13.5 (12.0-16.0) g/dL Hct 39.4 (35-47) % MCV 86.4 (78-100) fL MCH 29.6 (26-32) pg MCHC 34.3 (32-36) g/dL RDW 13.3 (11.5-14.0) % Plt Count 478 H (150-450) x10^3/uL MPV 9.8 (7.5-11.0) fL Gran % 87.1 H (36.0-66.0) % Immature Gran % (Auto) 0.5 H (0.00-0.4) % Nucleat RBC Rel Count 0.0 (0.00-0.1) % Eos # (Auto) 0.01 (0-0.5) x10^3/uL Immature Gran # (Auto) 0.13 H (0.00-0.03) x10^3u/L Absolute Lymphs (auto) 1.75 (1.0-4.6) x10^3/uL Absolute Monos (auto) 1.15 (0.0-1.3) x10^3/uL Absolute Nucleated RBC 0.00 (0.00-0.01) x10^3u/L Lymphocytes % 7.2 L (24.0-44.0) % Monocytes % 4.8 (0.0-12.0) % Eosinophils % 0.0 (0.00-5.0) % Basophils % 0.4 (0.0-0.4) % Absolute Granulocytes 21.06 H (1.4-6.9) x10^3/uL Basophils # 0.09 (0-0.4) x10^3/uL PT (9.4-12.5) SECONDS INR (0.8-3.0) Sodium 139 (137-145) mmol/L Potassium 3.5 (3.5-5.1) mmol/L Chloride 107 (98-107) mmol/L Carbon Dioxide 20 L (22-30) mmol/L Anion Gap 16.1 H (5-15) MEQ/L BUN 15 (7-17) mg/dL Creatinine 0.93 (0.52-1.04) mg/dL Estimated GFR > 60.0 ML/MIN Glucose 111 H (74-106) mg/dL Lactic Acid 1.9 (0.4-2.0) Calcium 8.6 (8.4-10.2) mg/dL Total Bilirubin 0.60 (0.2-1.3) mg/dL AST 24 (14-36) U/L ALT 20 (0-35) U/L Alkaline Phosphatase 93 (38-126) U/L Troponin I (0.000-0.034) ng/mL Serum Total Protein 7.1 (6.3-8.2) g/dL Albumin 4.4 (3.5-5.0) g/dL Amylase 55 (30-110) U/L Lipase 29 (23-300) U/L Urine Color (Yellow) Urine Appearance (Clear) Urine pH (4.6-8.0) Ur Specific [place] (1.005-1.030) Urine Protein (Negative) Urine Glucose (UA) (Negative) mg/dL Urine Ketones (Negative) Urine Blood (Negative) Urine Nitrite (Negative) Urine Bilirubin (Negative) Urine Urobilinogen (0.2) mg/dL Ur Leukocyte Esterase (Negative) U Hyaline Cast (Auto) (0-2) /LPF Urine Microscopic RBC (0-5) /HPF Urine Microscopic WBC (0-5) /HPF Ur Epithelial Cells (None Seen) /HPF Urine Bacteria (None Seen) /HPF Urine Culture Reflexed (NO) Urine Opiates Level (NEGATIVE) Ur Methadone (NEGATIVE) Urine Barbiturates (NEGATIVE) Ur Phencyclidine (PCP) (NEGATIVE) Urine Amphetamine (NEGATIVE) U Benzodiazepine Level (NEGATIVE) Urine Cocaine (NEGATIVE) Urine Marijuana (THC) (NEGATIVE) Slides for Path Review YES 07/03/23 07/03/23 07/03/23 Range/Units 12:50 12:50 15:28 WBC (4.0-10.5) x10^3/uL RBC (4.1-5.4) x10^6/uL Hgb (12.0-16.0) g/dL Hct (35-47) % MCV (78-100) fL MCH (26-32) pg MCHC (32-36) g/dL RDW (11.5-14.0) % Plt Count (150-450) x10^3/uL MPV (7.5-11.0) fL Gran % (36.0-66.0) % Immature Gran % (Auto) (0.00-0.4) % Nucleat RBC Rel Count (0.00-0.1) % Eos # (Auto) (0-0.5) x10^3/uL Immature Gran # (Auto) (0.00-0.03) x10^3u/L Absolute Lymphs (auto) (1.0-4.6) x10^3/uL Absolute Monos (auto) (0.0-1.3) x10^3/uL Absolute Nucleated RBC (0.00-0.01) x10^3u/L Lymphocytes % (24.0-44.0) % Monocytes % (0.0-12.0) % Eosinophils % (0.00-5.0) % Basophils % (0.0-0.4) % Absolute Granulocytes (1.4-6.9) x10^3/uL Basophils # (0-0.4) x10^3/uL PT 10.3 (9.4-12.5) SECONDS INR 0.94 (0.8-3.0) Sodium (137-145) mmol/L Potassium (3.5-5.1) mmol/L Chloride (98-107) mmol/L Carbon Dioxide (22-30) mmol/L Anion Gap (5-15) MEQ/L BUN (7-17) mg/dL Creatinine (0.52-1.04) mg/dL Estimated GFR ML/MIN Glucose (74-106) mg/dL Lactic Acid (0.4-2.0) Calcium (8.4-10.2) mg/dL Total Bilirubin (0.2-1.3) mg/dL AST (14-36) U/L ALT (0-35) U/L Alkaline Phosphatase (38-126) U/L Troponin I < 0.012 (0.000-0.034) ng/mL Serum Total Protein (6.3-8.2) g/dL Albumin (3.5-5.0) g/dL Amylase (30-110) U/L Lipase (23-300) U/L Urine Color (Yellow) Urine Appearance (Clear) Urine pH (4.6-8.0) Ur Specific [place] (1.005-1.030) Urine Protein (Negative) Urine Glucose (UA) (Negative) mg/dL Urine Ketones (Negative) Urine Blood (Negative) Urine Nitrite (Negative) Urine Bilirubin (Negative) Urine Urobilinogen (0.2) mg/dL Ur Leukocyte Esterase (Negative) U Hyaline Cast (Auto) (0-2) /LPF Urine Microscopic RBC (0-5) /HPF Urine Microscopic WBC (0-5) /HPF Ur Epithelial Cells (None Seen) /HPF Urine Bacteria (None Seen) /HPF Urine Culture Reflexed (NO) Urine Opiates Level POSITIVE (NEGATIVE) Ur Methadone NEGATIVE (NEGATIVE) Urine Barbiturates NEGATIVE (NEGATIVE) Ur Phencyclidine (PCP) NEGATIVE (NEGATIVE) Urine Amphetamine NEGATIVE (NEGATIVE) U Benzodiazepine Level POSITIVE (NEGATIVE) Urine Cocaine NEGATIVE (NEGATIVE) Urine Marijuana (THC) POSITIVE (NEGATIVE) Slides for Path Review 07/03/23 Range/Units 15:43 WBC (4.0-10.5) x10^3/uL RBC (4.1-5.4) x10^6/uL Hgb (12.0-16.0) g/dL Hct (35-47) % MCV (78-100) fL MCH (26-32) pg MCHC (32-36) g/dL RDW (11.5-14.0) % Plt Count (150-450) x10^3/uL MPV (7.5-11.0) fL Gran % (36.0-66.0) % Immature Gran % (Auto) (0.00-0.4) % Nucleat RBC Rel Count (0.00-0.1) % Eos # (Auto) (0-0.5) x10^3/uL Immature Gran # (Auto) (0.00-0.03) x10^3u/L Absolute Lymphs (auto) (1.0-4.6) x10^3/uL Absolute Monos (auto) (0.0-1.3) x10^3/uL Absolute Nucleated RBC (0.00-0.01) x10^3u/L Lymphocytes % (24.0-44.0) % Monocytes % (0.0-12.0) % Eosinophils % (0.00-5.0) % Basophils % (0.0-0.4) % Absolute Granulocytes (1.4-6.9) x10^3/uL Basophils # (0-0.4) x10^3/uL PT (9.4-12.5) SECONDS INR (0.8-3.0) Sodium (137-145) mmol/L Potassium (3.5-5.1) mmol/L Chloride (98-107) mmol/L Carbon Dioxide (22-30) mmol/L Anion Gap (5-15) MEQ/L BUN (7-17) mg/dL Creatinine (0.52-1.04) mg/dL Estimated GFR ML/MIN Glucose (74-106) mg/dL Lactic Acid (0.4-2.0) Calcium (8.4-10.2) mg/dL Total Bilirubin (0.2-1.3) mg/dL AST (14-36) U/L ALT (0-35) U/L Alkaline Phosphatase (38-126) U/L Troponin I (0.000-0.034) ng/mL Serum Total Protein (6.3-8.2) g/dL Albumin (3.5-5.0) g/dL Amylase (30-110) U/L Lipase (23-300) U/L Urine Color Dark Yellow A (Yellow) Urine Appearance Clear (Clear) Urine pH 7.5 (4.6-8.0) Ur Specific [place] 1.025 (1.005-1.030) Urine Protein Trace A (Negative) Urine Glucose (UA) Negative (Negative) mg/dL Urine Ketones Trace A (Negative) Urine Blood Negative (Negative) Urine Nitrite Positive A (Negative) Urine Bilirubin Negative (Negative) Urine Urobilinogen 1.0 A (0.2) mg/dL Ur Leukocyte Esterase Moderate A (Negative) U Hyaline Cast (Auto) 3-5 A (0-2) /LPF Urine Microscopic RBC 3-5 (0-5) /HPF Urine Microscopic WBC 21-50 A (0-5) /HPF Ur Epithelial Cells None Seen (None Seen) /HPF Urine Bacteria Many A (None Seen) /HPF Urine Culture Reflexed ORDERED SEPARATELY (NO) Urine Opiates Level (NEGATIVE) Ur Methadone (NEGATIVE) Urine Barbiturates (NEGATIVE) Ur Phencyclidine (PCP) (NEGATIVE) Urine Amphetamine (NEGATIVE) U Benzodiazepine Level (NEGATIVE) Urine Cocaine (NEGATIVE) Urine Marijuana (THC) (NEGATIVE) Slides for Path Review Microbiology 07/03/23 Unknown Stool Culture Result 1 - Final Stool Not Reportable Stool Culture Result 2 - Final Not Reportable Stool Culture Result 3 - Final Not Reportable Stool Culture Result 4 - Final Not Reportable Stool Culture Organism Suscept - Final Not Reportable Campylobacter Result 1 - Final Not Reportable Campylobacter Result 2 - Final Not Reportable Campylobactor Result 3 - Final Not Reportable Campylobacter Result 4 - Final Not Reportable Campylobactor Susceptibility - Final Not Reportable - Radiology Impressions Radiology Exams & Impressions: Radiology Procedures Category Date Time Status ABDOMEN AND PELVIS W/0 CONTRAS [CT] Stat Exams 07/03/23 12:47 Completed CHEST 1 VIEW (PORTABLE) Stat Exams 07/03/23 12:47 Completed Assessment/Plan (1) Sepsis Current Visit: Yes Status: Acute Assessment & Plan: Sepsis criteria identified 07/03/23 -Most likely secondary to UTI Patient has received 1L for fluid resuscitation. Blood cultures x2 ordered Antibiotics started Rocephin empirically Lactate drawn. Repeat lactate will be drawn in initial >2mmol/L If subsequent lactate elevated, trend until WNL Will admin vasopressors is hypotensive after IV admin (MAP <65 or SBP <90). (2) UTI (urinary tract infection) Current Visit: Yes Status: Acute Assessment & Plan: -See sepsis -Start empirically on Ceftriaxone, will follow culture Code(s): N39.0 - URINARY TRACT INFECTION, SITE NOT SPECIFIED (3) Abdominal pain Current Visit: Yes Status: Acute Assessment & Plan: -Most likely secondary to UTI/ with constipation as an added component -Docusate BID scheduled, miralax prn Code(s): R10.9 - UNSPECIFIED ABDOMINAL PAIN (4) Constipation Current Visit: Yes Status: Acute Assessment & Plan: -see above Code(s): K59.00 - CONSTIPATION, UNSPECIFIED (5) Leukocytosis, unspecified Current Visit: Yes Status: Acute Assessment & Plan: -Secondary most likely to UTI Code(s): D72.829 - ELEVATED WHITE BLOOD CELL COUNT, UNSPECIFIED
[2023-07-03] MEDS ORDERED: Miralax Powder 17GM PACKET PO PRN (17:00)
[2023-07-03] MEDS ORDERED: Docusate Sodium 100 MG PO PRN (17:01)
[2023-07-03] MEDS ORDERED: Zofran 4 MG/2 ML VIAL IV PRN (17:01)
[2023-07-03] MEDS ORDERED: Seroquel 100 MG PO PRN (17:09)
[2023-07-03] MEDS: ROCEPHIN 1 Gm-D5w 50 ml Bag** 1 G/50 ML IVPB IV SCH (17:14)
[2023-07-03] MEDS: Sodium Chloride 0.9% 1000 ML 1,000 ML IV SCH (17:14)
[2023-07-03] MEDS: ENOXAPARIN SODIUM SQ SCH (17:14)
[2023-07-03] MEDS: Protonix 40MG Tablet PO SCH (17:15)
[2023-07-03] MEDS: Nicoderm CQ 21 MG TOP SCH (17:15)
[2023-07-03] MEDS: Prozac 20 MG PO SCH (17:15)
[2023-07-03 20:55] LABS: 027 TOX PROD PRESUMPTIVE NEGATIVE (NEGATIVE); TOXIGENIC C. DIFF ORG NEGATIVE (NEGATIVE)
[2023-07-03] MEDS: XANAX 1 MG PO SCH (21:30)
[2023-07-03] MEDS: Tricor 145 MG PO SCH (21:30)
[2023-07-03] MEDS: Zocor 10MG PO SCH (21:31)
[2023-07-03] MEDS: CLONIDINE 0.1 MG TABLET PO SCH (21:31)
[2023-07-04] MEDS: Sodium Chloride 0.9% 1000 ML 1,000 ML IV SCH ×3 (02:26→17:52)
[2023-07-04] MEDS: TYLENOL 325 MG PO PRN ×2 (02:28→17:51)
[2023-07-04 05:04] LABS: Hemoglobin 12.8 g/dL (12.0-16.0); Mean Cell Volume 88.4 fL (78-100); Mean Corpuscular Hemoglobin 29.8 pg (26-32); Mean Corpuscular Hgb Concent. 33.7 g/dL (32-36); Mean Platelet Volume 9.8 fL (7.5-11.0); Platelet Count 375 x10^3/uL (150-450); Red Cell Distribution Width 13.7 % (11.5-14.0); White Blood Count 15.1 x10^3/uL (4.0-10.5)
[2023-07-04 05:24] LABS: ALBUMIN 3.8 g/dL (3.5-5.0); ALKALINE PHOSPHATASE 90 U/L (38-126); ANION GAP 16.2 MEQ/L (5-15); BLOOD UREA NITROGEN 11 mg/dL (7-17); CHLORIDE 107 mmol/L (98-107); Calcium 8.1 mg/dL (8.4-10.2); Carbon Dioxide 18 mmol/L (22-30); Creatinine 1 0.84 mg/dL (0.52-1.04); EST GLOMERULAR FILTRATION RATE > 60.0 ML/MIN; Glucose 106 mg/dL (74-106); Potassium 3.6 mmol/L (3.5-5.1); SGOT/AST 25 U/L (14-36); SGPT/ALT 19 U/L (0-35); SODIUM 138 mmol/L (137-145); Total Protein 6.5 g/dL (6.3-8.2)
--- NOTE | 2023-07-04 05:47 | PCM.NOTE ---
Date and Time: 07/04/23541 Subjective Assessment: is a 57 year old female with a pmhx of depression, anxiety, and smoker presenting with complaints of low back pain, abdominal pain, dysuria, nausea, and vomiting admitted for sepsis, likely caused by UTI, currently being treated with Rocephin. WBC has significantly improved overnight 15.1 (24.2). Patient endorses improvement of symptoms. Only minor abdominal cramping this morning. Constipation has resolved, bowel regimen produced two stools. - Review of Systems Constitutional: No Symptoms Eyes: No Symptoms Ears, Nose, & Throat: No Symptoms Respiratory: No Symptoms Cardiac: No Symptoms Abdominal/Gastrointestinal: Other (cramping/pressure) Genitourinary Symptoms: Other (abdominal pressure) Musculoskeletal: No Symptoms Skin: No Symptoms Neurological: No Symptoms Psychological: No Symptoms Objective Exam General Appearance: no apparent distress Neurologic Exam: alert, oriented x 3, cooperative Skin Exam: normal color Eye Exam: PERRL Ears, Nose, Throat Exam: normal ENT inspection Respiratory Exam: normal breath sounds Cardiovascular Exam: regular rate/rhythm, normal heart sounds Gastrointestinal/Abdomen Exam: soft, normal bowel sounds, tenderness (mild tenderness to bilateral lower quads) Extremity Exam: normal inspection OBJECTIVE DATA Vital Signs: Vital Signs - 24 hr Temp Pulse Resp BP BP Pulse Ox 07/04/23 04:00 97.8 F 75 16 90/52 92 L 07/03/23 23:51 98.0 F 81 15 99/55 94 L 07/03/23 20:00 98.4 F 82 16 117/59 92 L 07/03/23 15:51 98.3 F 112 H 149/78 98 07/03/23 15:45 98.6 F 94 H 16 130/60 94 L 07/03/23 15:28 98 07/03/23 15:02 117/86 07/03/23 15:01 98 07/03/23 14:30 109/80 07/03/23 12:29 98.3 F 112 H 30 H 149/78 98 Pain Assessment - Last Documented Pain Intensity 0 Pain Scale Used FLACC Intake and Output: Intake & Output 07/01/23 07/02/23 07/03/23 07/04/23 11:59 11:59 11:59 11:59 Intake Total 1636 Balance 1636 Weight 76.2 kg Lab Results: Lab Results-Last 24 Hours 07/03/23 07/03/23 07/03/23 Range/Units 12:50 12:50 12:50 WBC 24.2 H (4.0-10.5) x10^3/uL RBC 4.56 (4.1-5.4) x10^6/uL Hgb 13.5 (12.0-16.0) g/dL Hct 39.4 (35-47) % MCV 86.4 (78-100) fL MCH 29.6 (26-32) pg MCHC 34.3 (32-36) g/dL RDW 13.3 (11.5-14.0) % Plt Count 478 H (150-450) x10^3/uL MPV 9.8 (7.5-11.0) fL Gran % 87.1 H (36.0-66.0) % Immature Gran % (Auto) 0.5 H (0.00-0.4) % Nucleat RBC Rel Count 0.0 (0.00-0.1) % Eos # (Auto) 0.01 (0-0.5) x10^3/uL Immature Gran # (Auto) 0.13 H (0.00-0.03) x10^3u/L Absolute Lymphs (auto) 1.75 (1.0-4.6) x10^3/uL Absolute Monos (auto) 1.15 (0.0-1.3) x10^3/uL Absolute Nucleated RBC 0.00 (0.00-0.01) x10^3u/L Lymphocytes % 7.2 L (24.0-44.0) % Monocytes % 4.8 (0.0-12.0) % Eosinophils % 0.0 (0.00-5.0) % Basophils % 0.4 (0.0-0.4) % Absolute Granulocytes 21.06 H (1.4-6.9) x10^3/uL Basophils # 0.09 (0-0.4) x10^3/uL PT (9.4-12.5) SECONDS INR (0.8-3.0) Sodium 139 (137-145) mmol/L Potassium 3.5 (3.5-5.1) mmol/L Chloride 107 (98-107) mmol/L Carbon Dioxide 20 L (22-30) mmol/L Anion Gap 16.1 H (5-15) MEQ/L BUN 15 (7-17) mg/dL Creatinine 0.93 (0.52-1.04) mg/dL Estimated GFR > 60.0 ML/MIN Glucose 111 H (74-106) mg/dL Lactic Acid 1.9 (0.4-2.0) Calcium 8.6 (8.4-10.2) mg/dL Total Bilirubin 0.60 (0.2-1.3) mg/dL AST 24 (14-36) U/L ALT 20 (0-35) U/L Alkaline Phosphatase 93 (38-126) U/L Troponin I (0.000-0.034) ng/mL Serum Total Protein 7.1 (6.3-8.2) g/dL Albumin 4.4 (3.5-5.0) g/dL Amylase 55 (30-110) U/L Lipase 29 (23-300) U/L Urine Color (Yellow) Urine Appearance (Clear) Urine pH (4.6-8.0) Ur Specific [place] (1.005-1.030) Urine Protein (Negative) Urine Glucose (UA) (Negative) mg/dL Urine Ketones (Negative) Urine Blood (Negative) Urine Nitrite (Negative) Urine Bilirubin (Negative) Urine Urobilinogen (0.2) mg/dL Ur Leukocyte Esterase (Negative) U Hyaline Cast (Auto) (0-2) /LPF Urine Microscopic RBC (0-5) /HPF Urine Microscopic WBC (0-5) /HPF Ur Epithelial Cells (None Seen) /HPF Urine Bacteria (None Seen) /HPF Urine Culture Reflexed (NO) Urine Opiates Level (NEGATIVE) Ur Methadone (NEGATIVE) Urine Barbiturates (NEGATIVE) Ur Phencyclidine (PCP) (NEGATIVE) Urine Amphetamine (NEGATIVE) U Benzodiazepine Level (NEGATIVE) Urine Cocaine (NEGATIVE) Urine Marijuana (THC) (NEGATIVE) C. difficile Screen (NEGATIVE) C.difficile 027-NAP1-B1 (NEGATIVE) Slides for Path Review YES 07/03/23 07/03/23 07/03/23 Range/Units 12:50 12:50 15:28 WBC (4.0-10.5) x10^3/uL RBC (4.1-5.4) x10^6/uL Hgb (12.0-16.0) g/dL Hct (35-47) % MCV (78-100) fL MCH (26-32) pg MCHC (32-36) g/dL RDW (11.5-14.0) % Plt Count (150-450) x10^3/uL MPV (7.5-11.0) fL Gran % (36.0-66.0) % Immature Gran % (Auto) (0.00-0.4) % Nucleat RBC Rel Count (0.00-0.1) % Eos # (Auto) (0-0.5) x10^3/uL Immature Gran # (Auto) (0.00-0.03) x10^3u/L Absolute Lymphs (auto) (1.0-4.6) x10^3/uL Absolute Monos (auto) (0.0-1.3) x10^3/uL Absolute Nucleated RBC (0.00-0.01) x10^3u/L Lymphocytes % (24.0-44.0) % Monocytes % (0.0-12.0) % Eosinophils % (0.00-5.0) % Basophils % (0.0-0.4) % Absolute Granulocytes (1.4-6.9) x10^3/uL Basophils # (0-0.4) x10^3/uL PT 10.3 (9.4-12.5) SECONDS INR 0.94 (0.8-3.0) Sodium (137-145) mmol/L Potassium (3.5-5.1) mmol/L Chloride (98-107) mmol/L Carbon Dioxide (22-30) mmol/L Anion Gap (5-15) MEQ/L BUN (7-17) mg/dL Creatinine (0.52-1.04) mg/dL Estimated GFR ML/MIN Glucose (74-106) mg/dL Lactic Acid (0.4-2.0) Calcium (8.4-10.2) mg/dL Total Bilirubin (0.2-1.3) mg/dL AST (14-36) U/L ALT (0-35) U/L Alkaline Phosphatase (38-126) U/L Troponin I < 0.012 (0.000-0.034) ng/mL Serum Total Protein (6.3-8.2) g/dL Albumin (3.5-5.0) g/dL Amylase (30-110) U/L Lipase (23-300) U/L Urine Color (Yellow) Urine Appearance (Clear) Urine pH (4.6-8.0) Ur Specific [place] (1.005-1.030) Urine Protein (Negative) Urine Glucose (UA) (Negative) mg/dL Urine Ketones (Negative) Urine Blood (Negative) Urine Nitrite (Negative) Urine Bilirubin (Negative) Urine Urobilinogen (0.2) mg/dL Ur Leukocyte Esterase (Negative) U Hyaline Cast (Auto) (0-2) /LPF Urine Microscopic RBC (0-5) /HPF Urine Microscopic WBC (0-5) /HPF Ur Epithelial Cells (None Seen) /HPF Urine Bacteria (None Seen) /HPF Urine Culture Reflexed (NO) Urine Opiates Level POSITIVE (NEGATIVE) Ur Methadone NEGATIVE (NEGATIVE) Urine Barbiturates NEGATIVE (NEGATIVE) Ur Phencyclidine (PCP) NEGATIVE (NEGATIVE) Urine Amphetamine NEGATIVE (NEGATIVE) U Benzodiazepine Level POSITIVE (NEGATIVE) Urine Cocaine NEGATIVE (NEGATIVE) Urine Marijuana (THC) POSITIVE (NEGATIVE) C. difficile Screen (NEGATIVE) C.difficile 027-NAP1-B1 (NEGATIVE) Slides for Path Review 07/03/23 07/03/23 07/03/23 Range/Units 15:43 17:46 20:11 WBC (4.0-10.5) x10^3/uL RBC (4.1-5.4) x10^6/uL Hgb (12.0-16.0) g/dL Hct (35-47) % MCV (78-100) fL MCH (26-32) pg MCHC (32-36) g/dL RDW (11.5-14.0) % Plt Count (150-450) x10^3/uL MPV (7.5-11.0) fL Gran % (36.0-66.0) % Immature Gran % (Auto) (0.00-0.4) % Nucleat RBC Rel Count (0.00-0.1) % Eos # (Auto) (0-0.5) x10^3/uL Immature Gran # (Auto) (0.00-0.03) x10^3u/L Absolute Lymphs (auto) (1.0-4.6) x10^3/uL Absolute Monos (auto) (0.0-1.3) x10^3/uL Absolute Nucleated RBC (0.00-0.01) x10^3u/L Lymphocytes % (24.0-44.0) % Monocytes % (0.0-12.0) % Eosinophils % (0.00-5.0) % Basophils % (0.0-0.4) % Absolute Granulocytes (1.4-6.9) x10^3/uL Basophils # (0-0.4) x10^3/uL PT (9.4-12.5) SECONDS INR (0.8-3.0) Sodium (137-145) mmol/L Potassium (3.5-5.1) mmol/L Chloride (98-107) mmol/L Carbon Dioxide (22-30) mmol/L Anion Gap (5-15) MEQ/L BUN (7-17) mg/dL Creatinine (0.52-1.04) mg/dL Estimated GFR ML/MIN Glucose (74-106) mg/dL Lactic Acid 0.9 (0.4-2.0) Calcium (8.4-10.2) mg/dL Total Bilirubin (0.2-1.3) mg/dL AST (14-36) U/L ALT (0-35) U/L Alkaline Phosphatase (38-126) U/L Troponin I < 0.012 (0.000-0.034) ng/mL Serum Total Protein (6.3-8.2) g/dL Albumin (3.5-5.0) g/dL Amylase (30-110) U/L Lipase (23-300) U/L Urine Color Dark Yellow A (Yellow) Urine Appearance Clear (Clear) Urine pH 7.5 (4.6-8.0) Ur Specific [place] 1.025 (1.005-1.030) Urine Protein Trace A (Negative) Urine Glucose (UA) Negative (Negative) mg/dL Urine Ketones Trace A (Negative) Urine Blood Negative (Negative) Urine Nitrite Positive A (Negative) Urine Bilirubin Negative (Negative) Urine Urobilinogen 1.0 A (0.2) mg/dL Ur Leukocyte Esterase Moderate A (Negative) U Hyaline Cast (Auto) 3-5 A (0-2) /LPF Urine Microscopic RBC 3-5 (0-5) /HPF Urine Microscopic WBC 21-50 A (0-5) /HPF Ur Epithelial Cells None Seen (None Seen) /HPF Urine Bacteria Many A (None Seen) /HPF Urine Culture Reflexed ORDERED SEPARATELY (NO) Urine Opiates Level (NEGATIVE) Ur Methadone (NEGATIVE) Urine Barbiturates (NEGATIVE) Ur Phencyclidine (PCP) (NEGATIVE) Urine Amphetamine (NEGATIVE) U Benzodiazepine Level (NEGATIVE) Urine Cocaine (NEGATIVE) Urine Marijuana (THC) (NEGATIVE) C. difficile Screen (NEGATIVE) C.difficile 027-NAP1-B1 (NEGATIVE) Slides for Path Review 07/03/23 07/03/23 07/04/23 Range/Units 21:15 Unknown 04:53 WBC 15.1 H (4.0-10.5) x10^3/uL RBC 4.30 (4.1-5.4) x10^6/uL Hgb 12.8 (12.0-16.0) g/dL Hct 38.0 (35-47) % MCV 88.4 (78-100) fL MCH 29.8 (26-32) pg MCHC 33.7 (32-36) g/dL RDW 13.7 (11.5-14.0) % Plt Count 375 (150-450) x10^3/uL MPV 9.8 (7.5-11.0) fL Gran % (36.0-66.0) % Immature Gran % (Auto) (0.00-0.4) % Nucleat RBC Rel Count (0.00-0.1) % Eos # (Auto) (0-0.5) x10^3/uL Immature Gran # (Auto) (0.00-0.03) x10^3u/L Absolute Lymphs (auto) (1.0-4.6) x10^3/uL Absolute Monos (auto) (0.0-1.3) x10^3/uL Absolute Nucleated RBC (0.00-0.01) x10^3u/L Lymphocytes % (24.0-44.0) % Monocytes % (0.0-12.0) % Eosinophils % (0.00-5.0) % Basophils % (0.0-0.4) % Absolute Granulocytes (1.4-6.9) x10^3/uL Basophils # (0-0.4) x10^3/uL PT (9.4-12.5) SECONDS INR (0.8-3.0) Sodium (137-145) mmol/L Potassium (3.5-5.1) mmol/L Chloride (98-107) mmol/L Carbon Dioxide (22-30) mmol/L Anion Gap (5-15) MEQ/L BUN (7-17) mg/dL Creatinine (0.52-1.04) mg/dL Estimated GFR ML/MIN Glucose (74-106) mg/dL Lactic Acid (0.4-2.0) Calcium (8.4-10.2) mg/dL Total Bilirubin (0.2-1.3) mg/dL AST (14-36) U/L ALT (0-35) U/L Alkaline Phosphatase (38-126) U/L Troponin I < 0.012 (0.000-0.034) ng/mL Serum Total Protein (6.3-8.2) g/dL Albumin (3.5-5.0) g/dL Amylase (30-110) U/L Lipase (23-300) U/L Urine Color (Yellow) Urine Appearance (Clear) Urine pH (4.6-8.0) Ur Specific [place] (1.005-1.030) Urine Protein (Negative) Urine Glucose (UA) (Negative) mg/dL Urine Ketones (Negative) Urine Blood (Negative) Urine Nitrite (Negative) Urine Bilirubin (Negative) Urine Urobilinogen (0.2) mg/dL Ur Leukocyte Esterase (Negative) U Hyaline Cast (Auto) (0-2) /LPF Urine Microscopic RBC (0-5) /HPF Urine Microscopic WBC (0-5) /HPF Ur Epithelial Cells (None Seen) /HPF Urine Bacteria (None Seen) /HPF Urine Culture Reflexed (NO) Urine Opiates Level (NEGATIVE) Ur Methadone (NEGATIVE) Urine Barbiturates (NEGATIVE) Ur Phencyclidine (PCP) (NEGATIVE) Urine Amphetamine (NEGATIVE) U Benzodiazepine Level (NEGATIVE) Urine Cocaine (NEGATIVE) Urine Marijuana (THC) (NEGATIVE) C. difficile Screen NEGATIVE (NEGATIVE) C.difficile 027-NAP1-B1 PRESUMPTIVE NEGATIVE (NEGATIVE) Slides for Path Review 07/04/23 Range/Units 04:53 WBC (4.0-10.5) x10^3/uL RBC (4.1-5.4) x10^6/uL Hgb (12.0-16.0) g/dL Hct (35-47) % MCV (78-100) fL MCH (26-32) pg MCHC (32-36) g/dL RDW (11.5-14.0) % Plt Count (150-450) x10^3/uL MPV (7.5-11.0) fL Gran % (36.0-66.0) % Immature Gran % (Auto) (0.00-0.4) % Nucleat RBC Rel Count (0.00-0.1) % Eos # (Auto) (0-0.5) x10^3/uL Immature Gran # (Auto) (0.00-0.03) x10^3u/L Absolute Lymphs (auto) (1.0-4.6) x10^3/uL Absolute Monos (auto) (0.0-1.3) x10^3/uL Absolute Nucleated RBC (0.00-0.01) x10^3u/L Lymphocytes % (24.0-44.0) % Monocytes % (0.0-12.0) % Eosinophils % (0.00-5.0) % Basophils % (0.0-0.4) % Absolute Granulocytes (1.4-6.9) x10^3/uL Basophils # (0-0.4) x10^3/uL PT (9.4-12.5) SECONDS INR (0.8-3.0) Sodium 138 (137-145) mmol/L Potassium 3.6 (3.5-5.1) mmol/L Chloride 107 (98-107) mmol/L Carbon Dioxide 18 L (22-30) mmol/L Anion Gap 16.2 H (5-15) MEQ/L BUN 11 (7-17) mg/dL Creatinine 0.84 (0.52-1.04) mg/dL Estimated GFR > 60.0 ML/MIN Glucose 106 (74-106) mg/dL Lactic Acid (0.4-2.0) Calcium 8.1 L (8.4-10.2) mg/dL Total Bilirubin 0.80 (0.2-1.3) mg/dL AST 25 (14-36) U/L ALT 19 (0-35) U/L Alkaline Phosphatase 90 (38-126) U/L Troponin I (0.000-0.034) ng/mL Serum Total Protein 6.5 (6.3-8.2) g/dL Albumin 3.8 (3.5-5.0) g/dL Amylase (30-110) U/L Lipase (23-300) U/L Urine Color (Yellow) Urine Appearance (Clear) Urine pH (4.6-8.0) Ur Specific [place] (1.005-1.030) Urine Protein (Negative) Urine Glucose (UA) (Negative) mg/dL Urine Ketones (Negative) Urine Blood (Negative) Urine Nitrite (Negative) Urine Bilirubin (Negative) Urine Urobilinogen (0.2) mg/dL Ur Leukocyte Esterase (Negative) U Hyaline Cast (Auto) (0-2) /LPF Urine Microscopic RBC (0-5) /HPF Urine Microscopic WBC (0-5) /HPF Ur Epithelial Cells (None Seen) /HPF Urine Bacteria (None Seen) /HPF Urine Culture Reflexed (NO) Urine Opiates Level (NEGATIVE) Ur Methadone (NEGATIVE) Urine Barbiturates (NEGATIVE) Ur Phencyclidine (PCP) (NEGATIVE) Urine Amphetamine (NEGATIVE) U Benzodiazepine Level (NEGATIVE) Urine Cocaine (NEGATIVE) Urine Marijuana (THC) (NEGATIVE) C. difficile Screen (NEGATIVE) C.difficile 027-NAP1-B1 (NEGATIVE) Slides for Path Review Radiology Exams: Radiology Procedures Category Date Time Status ABDOMEN AND PELVIS W/0 CONTRAS [CT] Stat Exams 07/03/23 12:47 Completed CHEST 1 VIEW (PORTABLE) Stat Exams 07/03/23 12:47 Completed Assessment/Plan (1) Sepsis Current Visit: Yes Status: Acute Assessment & Plan: Sepsis criteria identified 07/03/23 -Most likely secondary to UTI Patient has received 1L for fluid resuscitation. Blood cultures x2 ordered Antibiotics started Rocephin empirically Lactate drawn. Repeat lactate will be drawn in initial >2mmol/L If subsequent lactate elevated, trend until WNL Will admin vasopressors is hypotensive after IV admin (MAP <65 or SBP <90). 07/04/23 Sepsis reassessment note: Patient was seen and examined Physical Exam findings are as follows: Vitals stable Cardiopulmonary: RR WNL, No murmur, No Edema Respiratory: Lungs are clear to auscultation with bilateral air entry Capillary refill evaluation: less than 2 seconds Cardiovascular: Regular rate and rhythm Peripheral pulses: symmetric, palpable Integumentary: warm, dry, intact Lactate WNL Blood/urine/stool cultures pending -Continue rocephin, follow cultures -WBC trend 15.1 (24.2) (2) UTI (urinary tract infection) Current Visit: Yes Status: Acute Assessment & Plan: -See sepsis -Start empirically on Ceftriaxone, will follow culture Code(s): N39.0 - URINARY TRACT INFECTION, SITE NOT SPECIFIED (3) Abdominal pain Current Visit: Yes Status: Acute Assessment & Plan: -Most likely secondary to UTI/ with constipation as an added component -Docusate BID scheduled, miralax prn Code(s): R10.9 - UNSPECIFIED ABDOMINAL PAIN (4) Constipation Current Visit: Yes Status: Acute Assessment & Plan: -see above -Cdiff negative, stool studies pending -Resolved, bowel prep produced BM x 2 Code(s): K59.00 - CONSTIPATION, UNSPECIFIED (5) Leukocytosis, unspecified Current Visit: Yes Status: Acute Assessment & Plan: -Secondary most likely to UTI, improving with the initiation of rocephin 15.1 <24.2, will continue to monitor Code(s): D72.829 - ELEVATED WHITE BLOOD CELL COUNT, UNSPECIFIED
[2023-07-04] MEDS: ROCEPHIN 1 Gm-D5w 50 ml Bag** 1 G/50 ML IVPB IV SCH (09:29)
[2023-07-04] MEDS: Nicoderm CQ 21 MG TOP SCH (09:31)
[2023-07-04] MEDS: ENOXAPARIN SODIUM SQ SCH (09:31)
[2023-07-04] MEDS: XANAX 1 MG PO SCH ×3 (09:32→20:57)
[2023-07-04] MEDS: CLONIDINE 0.1 MG TABLET PO SCH ×3 (09:32→21:02)
[2023-07-04] MEDS: Protonix 40MG Tablet PO SCH (09:32)
[2023-07-04] MEDS: Prozac 20 MG PO SCH (09:32)
[2023-07-04] MEDS: Tricor 145 MG PO SCH (20:57)
[2023-07-04] MEDS: Zocor 10MG PO SCH (20:57)
[2023-07-05] MEDS: CLONIDINE 0.1 MG TABLET PO SCH (07:14)
[2023-07-05 07:15] VITALS: BP 161/72; PULSE 75; RESP 17; TEMP 97.7; O2SAT 97
[2023-07-05] MEDS: ROCEPHIN 1 Gm-D5w 50 ml Bag** 1 G/50 ML IVPB IV SCH (07:15)
[2023-07-05] MEDS: XANAX 1 MG PO SCH (07:15)
[2023-07-05] MEDS: Protonix 40MG Tablet PO SCH (07:15)
[2023-07-05] MEDS: Prozac 20 MG PO SCH (07:15)
--- NOTE | 2023-07-05 08:08 | PCM.DS ---
Discharge Summary Date of Admission: 07/03/23 15:44 Date of Discharge: 07/05/23 Admitting Physician: ESPINOZA STILES MD Primary Care Provider: HEIDI MCCARTHY Allergies Allergies ciprofloxacin [From Cipro] Allergy (Verified 07/03/23 12:30) [facility] Summary - Hospital Course Hospital Course: is a 57 year old female with a pmhx of depression, anxiety, and smoker presenting with complaints of low back pain, abdominal pain, dysuria, nausea, and vomiting admitted for sepsis, likely caused by UTI, currently being treated with Rocephin. WBC now within normal limits at 9.2, vitals stable. Patient endorses improvement of symptoms. Constipation has resolved. Urine culture positive for Ecoli, will discharge home on cefdinir 300mg po bid x 5 day. Patient advised close follow up with PCP. - Vitals & Intake/Output Vital Signs: Vital Signs Temperature 97.7 F 07/05/23 07:15 Pulse Rate 75 07/05/23 07:15 Respiratory Rate 17 07/05/23 07:15 Blood Pressure 161/72 07/05/23 07:15 O2 Sat by Pulse Oximetry 97 07/05/23 07:15 Intake & Output: Intake & Output 07/02/23 07/03/23 07/04/23 07/05/23 11:59 11:59 11:59 11:59 Intake Total 2116 2350 Balance 2116 2350 Weight 76.2 kg - Lab Result Diagrams: 07/05/23 08:15 07/05/23 08:15 Micro Results-Entire Visit: Microbiology 07/03/23 Unknown Urine Culture - Final Urine, Catheterized Escherichia Coli 07/03/23 04:50 Blood Culture - Preliminary Blood - Radiology Exams Ordered Rad Exams-Entire Visit: Radiology Procedures Category Date Time Status ABDOMEN AND PELVIS W/0 CONTRAS [CT] Stat Exams 07/03/23 12:47 Completed CHEST 1 VIEW (PORTABLE) Stat Exams 07/03/23 12:47 Completed Final Diagnosis/Problem List - Final Discharge Diagnosis/Problem (1) Sepsis Current Visit: Yes Status: Resolved (2) UTI (urinary tract infection) Current Visit: Yes Status: Acute Code(s): N39.0 - URINARY TRACT INFECTION, SITE NOT SPECIFIED (3) Abdominal pain Current Visit: Yes Status: Resolved Code(s): R10.9 - UNSPECIFIED ABDOMINAL PAIN (4) Constipation Current Visit: Yes Status: Acute Code(s): K59.00 - CONSTIPATION, UNSPECIFIED (5) Leukocytosis, unspecified Current Visit: Yes Status: Acute Code(s): D72.829 - ELEVATED WHITE BLOOD CELL COUNT, UNSPECIFIED - Discharge Disposition: Home, Self-Care Condition: Stable Prescriptions: New Cefdinir 300 mg PO BID 5 Days #10 cap Continue Omeprazole Magnesium [Prilosec Otc] 20 mg PO DAILY Atorvastatin Calcium [Lipitor] 10 mg PO HS Clonidine HCl 0.1 mg [Clonidine 0.1 mg Tablet] 2 tab PO BID Quetiapine Fumarate [Seroquel] 300 mg PO HS PRN PRN PRN Reason: Insomnia ALPRAZolam 1 MG [Xanax 1 mg] 1 mg PO TID Fluoxetine HCl 20 mg [Prozac 20 MG] 20 mg PO DAILY Ondansetron ODT 4 MG [Zofran Odt 4 mg] 4 mg PO BID PRN PRN PRN Reason: Nausea Fenofibrate 160 mg PO HS Polyethylene Glycol 3350 17 gm [Miralax Powder 17GM PACKET] 17 gm PO DAILY PRN #7 packet PRN Reason: Constipation Instructions: Urinary Tract Infection, Adult (DC), Severe Abdominal Pain, Adult (DC) Follow up with: HEIDI MCCARTHY NP [Primary Care Provider] - 07/11/23 10:00 am
[2023-07-05 08:17] LABS: BASOPHIL % 0.8 % (0.0-0.4); Basophil (Absolute #) 0.07 x10^3/uL (0-0.4); Eosinophil % 2.1 % (0.00-5.0); Eosinophil (Absolute #) 0.19 x10^3/uL (0-0.5); Hematocrit 35.6 % (35-47); Hemoglobin 11.4 g/dL (12.0-16.0); IMMATURE GRAN # 0.04 x10^3u/L (0.00-0.03); IMMATURE GRAN % 0.4 % (0.00-0.4); Lymphocyte (Absolute #) 1.83 x10^3/uL (1.0-4.6); Lymphocytes % 19.8 % (24.0-44.0); Mean Corpuscular Hemoglobin 29.5 pg (26-32); Monocyte (Absolute #) 0.49 x10^3/uL (0.0-1.3); Monocytes % 5.3 % (0.0-12.0); Neutrophil % 71.6 % (36.0-66.0); Platelet Count 295 x10^3/uL (150-450); Red Blood Count 3.87 x10^6/uL (4.1-5.4); Red Cell Distribution Width 13.4 % (11.5-14.0); White Blood Count 9.2 x10^3/uL (4.0-10.5)
[2023-07-05 08:57] LABS: ALBUMIN 3.6 g/dL (3.5-5.0); ALKALINE PHOSPHATASE 83 U/L (38-126); ANION GAP 13.7 MEQ/L (5-15); BLOOD UREA NITROGEN 8 mg/dL (7-17); CHLORIDE 114 mmol/L (98-107); Calcium 8.1 mg/dL (8.4-10.2); Carbon Dioxide 17 mmol/L (22-30); Creatinine 1 0.71 mg/dL (0.52-1.04); EST GLOMERULAR FILTRATION RATE > 60.0 ML/MIN; Glucose 108 mg/dL (74-106); Potassium 3.6 mmol/L (3.5-5.1); SGOT/AST 25 U/L (14-36); SGPT/ALT 20 U/L (0-35); SODIUM 141 mmol/L (137-145); Total Protein 6.2 g/dL (6.3-8.2)
== END 2023-07-05 10:35 | disposition home or self-care (01) ==
LOC: ED 12:28 → MED SURG 15:44
PROVIDERS: ADMIT Internal Medicine; ATTEND Internal Medicine
DX: A41.9 Sepsis, unspecified organism (principal); N39.0 Urinary tract infection, site not specified; R10.9 Unspecified abdominal pain; K59.00 Constipation, unspecified; I10 Essential (primary) hypertension; E78.5 Hyperlipidemia, unspecified; D72.829 Elevated white blood cell count, unspecified; Z79.899 Other long term (current) drug therapy; Z20.828 Contact with and (suspected) exposure to other viral communicable diseases; Z72.0 Tobacco use
CPT/HCPCS: 36000; 36415; 71045; 74176; 80053; 80307; 81001; 82150; 83605; 83690; 84484; 85025; 85027; 85610; 87040; 87077; 87086; 87186; 87493; 93005; 96374; 96375; 96376; 99285; G0378; P9612; Q3014; J0696; J1170; J1650; J2405; A9270-GY

== ENCOUNTER 2024-09-27 22:45 | Emergency (ER) | payer OTHER ==
[2024-09-27] MEDS ORDERED: ZOFRAN ODT 4 MG ONE (23:01)
[2024-09-27] MEDS: ZOFRAN ODT 4 MG PO ONE (23:02)
[2024-09-27 23:11] VITALS: TEMP 98.6
--- NOTE | 2024-09-27 23:41 | ERPHSYRPT ---
- History of Present Illness Time Seen by Provider: 09/27/24 23:37 Source: patient, family Exam Limitations: no limitations Patient Subjective Stated Complaint: pt states she had a carotid surgery at [facility] on sunday. states she started having increased pain and redness today. Triage Nursing Assessment: pt alert and oriented, answers questions approp. pt ambulates into room with steady gait noted. pt tearful. incision to lt neck with redness and swelling surrounding. Physician History: 59-year-old female with history of hypertension, hyperlipidemia, TIAs status post left carotid endarterectomy postop day 3 at [facility] presented to the ER with increasing pain and swelling/redness in the left side of the neck. Patient reports moderate intensity sharp pain gradually increasing without any discharge. No fever or chills reported. Denies any difficulty breathing or pressure on the airway. Allergies/Adverse Reactions: ciprofloxacin [From Cipro] Allergy (Verified 07/03/23 12:30) Hives Home Medications: ALPRAZolam 1 MG [Xanax 1 mg] 1 mg PO TID 07/02/23 [History] Atorvastatin Calcium [Lipitor] 20 mg PO HS 07/02/23 [History] Clonidine HCl 0.1 mg [Clonidine 0.1 mg Tablet] 2 tab PO BID 07/02/23 [History] Fenofibrate 160 mg PO HS 07/02/23 [History] Fluoxetine HCl 20 mg [Prozac 20 MG] 20 mg PO DAILY 07/02/23 [History] Ondansetron ODT 4 MG [Zofran Odt 4 mg] 4 mg PO BID PRN PRN 07/02/23 [History] Quetiapine Fumarate [Seroquel] 300 mg PO HS PRN PRN 07/02/23 [History] Acetaminophen 325 mg [Tylenol 325 mg] 650 mg PO Q4HPRN PRN 09/27/24 [History] Aspirin EC 325 mg [Ecotrin 325 MG] 325 mg PO DAILY 09/27/24 [History] Cefuroxime Axetil [Cefuroxime] 250 mg PO BID 09/27/24 [History] Hydrocodone/Acetaminophen [Hydrocodone-Acetamin 5-325 mg] 1 tab PO Q6HPRN PRN MDD 4 09/27/24 [History] Lansoprazole [Prevacid] 30 mg PO DAILY 09/27/24 [History] Hx Tetanus, Diphtheria Vaccination/Date Given: Yes Hx Influenza Vaccination/Date Given: No Hx Pneumococcal Vaccination/Date Given: No Immunizations Up to Date: Yes Travel Risk - International Travel Have you traveled outside of the country in past 3 weeks: No - Emerging Infectious Disease Are you exhibiting symptoms associated with any current EIDs: No - Review of Systems Constitutional: No Symptoms Ears, Nose, & Throat: No Symptoms Respiratory: No Symptoms Cardiac: No Symptoms Abdominal/Gastrointestinal: No Symptoms Musculoskeletal: Neck Pain Skin: Induration, Skin Lesions Neurological: No Symptoms Endocrine: No Symptoms Hematologic/Lymphatic: No Symptoms - Past Medical History Pertinent Past Medical History: Yes Neurological History: No Pertinent History ENT History: No Pertinent History Cardiac History: High Cholesterol, Hypertension Respiratory History: No Pertinent History Endocrine Medical History: No Pertinent History Musculoskeletal History: Arthritis, Fractures GI Medical History: Diverticulitis, Diverticulosis, GERD, Gallbladder Disease History: No Pertinent History Psycho-Social History: Anxiety, Depression Female Reproductive Disorders: Endometriosis Other Medical History: Bowel BLOCKAGE 2012, insomnia - Past Surgical History Past Surgical History: Yes Neuro Surgical History: No Pertinent History Cardiac: No Pertinent History Respiratory: No Pertinent History Gastrointestinal: Cholecystectomy, Other Genitourinary: No Pertinent History Musculoskeletal: Orthopedic Surgery Female Surgical History: Hysterectomy Other Surgical History: Fracture of R foot in 2010. ex lap. bowel obstruction repair. lt carotid endarterectomy. Significant Family History: no pertinent family hx - Social History Smoking Status: Current every day smoker How long have you smoked: 17 yrs Exposure to second hand smoke: Yes Alcohol Use: Socially Drug Use: none Patient Lives Alone: No - Social Determinants of Health Will the patient participate in the screening: Declined to provide - Nursing Vital Signs Nursing Vital Signs: Initial Vital Signs Temperature 98.6 F 09/27/24 22:53 Pulse Rate 114 H 09/27/24 22:53 Respiratory Rate 24 09/27/24 22:53 Blood Pressure 153/116 09/27/24 22:53 O2 Sat by Pulse Oximetry 99 09/27/24 22:53 Pain Scale Pain Intensity 4 - Physical Exam General Appearance: no apparent distress, alert Eye Exam: PERRL/EOMI Ears, Nose, Throat Exam: normal ENT inspection Neck Exam: normal inspection, supple, full range of motion, other (Left side endarterectomy with intact incision and diffuse erythema around. Warm and mi ldly tender to touch. ) Respiratory Exam: normal breath sounds, lungs clear Cardiovascular Exam: regular rate/rhythm, normal heart sounds Gastrointestinal/Abdomen Exam: soft, normal bowel sounds, No tenderness Extremity Exam: normal inspection Neurologic Exam: alert, oriented x 3, cooperative Skin Exam: normal color SpO2 Interpretation: normal SpO2: 99 O2 Delivery: Room Air Ordered Tests: Active Orders 24 hr Category Date Time Status IV Insertion STAT Care 09/27/24 23:37 Active NPO (ED) STAT Care 09/27/24 23:[address] ANGIOGRAPHY NECK [CT] Stat Exams 09/27/24 23:38 Completed BLOOD CULTURE Stat Lab 09/27/24 23:55 Received CBC W DIFF Stat Lab 09/27/24 23:40 Completed CMP Stat Lab 09/27/24 23:40 Completed Lactic Acid Stat Lab 09/27/24 23:37 Completed UA W/RFX UR CULTURE Stat Lab 09/28/24 01:52 Received Medication Summary Generic Name Dose Route Start Last Admin Trade Name Armando PRN Reason Stop Dose Admin Vancomycin HCl 2 gm in 400 mls @ 133.333 mls/hr 09/28/24 01:59 Vancomycin 2 Gram/400 Ml Bag IV 09/28/24 04:58 STAT ONE Discontinued Medications Generic Name Dose Route Start Last Admin Trade Name Armando PRN Reason Stop Dose Admin Morphine Sulfate 4 mg 09/27/24 23:37 09/27/24 23:54 Morphine Sulfate 4 Mg/Ml Injection IV 09/27/24 23:38 4 mg STAT ONE Administration Morphine Sulfate Confirm 09/27/24 23:49 Morphine Sulfate 4 Mg/Ml Injection Administered 09/27/24 23:50 Dose 4 mg .ROUTE .STK-MED ONE Ondansetron HCl Confirm 09/27/24 23:01 Zofran 4 Mg/Udtablet Orally Disintegrating Administered 09/27/24 23:02 Dose 4 mg .ROUTE .STK-MED ONE Ondansetron HCl 4 mg 09/27/24 23:12 09/27/24 23:02 Zofran 4 Mg/Udtablet Orally Disintegrating PO 09/27/24 23:13 4 mg STAT ONE Administration Ondansetron HCl 4 mg 09/27/24 23:37 Ondansetron Hcl 4 Mg/2 Ml Vial IV 09/27/24 23:38 STAT ONE Ondansetron HCl Confirm 09/27/24 23:49 Ondansetron Hcl 4 Mg/2 Ml Vial Administered 09/27/24 23:50 Dose 4 mg .ROUTE .STK-MED ONE Lab/Rad Data: Laboratory Result Diagrams 09/27/24 23:40 09/27/24 23:40 Laboratory Results 09/28/24 09/27/24 09/27/24 Range/Units 00:05 23:40 23:40 WBC 12.1 H (3.98-10.04) x10^3/uL RBC 4.10 (3.93-5.22) x10^6/uL Hgb 12.0 (11.2-15.7) g/dL Hct 35.7 (34.1-44.9) % MCV 87.1 (79.4-94.8) fL MCH 29.3 (25.6-32.2) pg MCHC 33.6 (32.2-35.5) g/dL RDW 13.5 (11.7-14.4) % Plt Count 402 H (182-369) x10^3/uL MPV 10.1 (9.4-12.3) fL Gran % 65.5 (34.0-71.1) % Immature Gran % (Auto) 0.9 H (0.001-0.429) % Nucleat RBC Rel Count 0.0 (0.00-0.2) % Eos # (Auto) 0.60 H (0.04-0.36) x10^3/uL Immature Gran # (Auto) 0.11 H (0.001-0.031) x10^3u/L Absolute Lymphs (auto) 2.38 (1.18-3.74) x10^3/uL Absolute Monos (auto) 1.00 H (0.24-0.86) x10^3/uL Absolute Nucleated RBC 0.00 (0.00-0.012) x10^3u/L Lymphocytes % 19.6 (19.3-51.7) % Monocytes % 8.3 (4.7-12.5) % Eosinophils % 5.0 (0.7-5.8) % Basophils % 0.7 (0.1-1.2) % Absolute Granulocytes 7.94 H (1.56-6.13) x10^3/uL Basophils # 0.09 H (0.01-0.08) x10^3/uL Sodium 142 (135-145) mmol/L Potassium 3.5 (3.5-5.1) mmol/L Chloride 107 (98-107) mmol/L Carbon Dioxide 26 (22-30) mmol/L Anion Gap 12.8 (5-15) MEQ/L BUN 9 (7-17) mg/dL Creatinine 0.91 (0.52-1.04) mg/dL Estimated GFR 73.6 ML/MIN Glucose 117 H (74-106) mg/dL Lactic Acid 1.4 (0.4-2.0) Calcium 9.5 (8.4-10.2) mg/dL Total Bilirubin 0.50 (0.2-1.3) mg/dL AST 37 H (14-36) U/L ALT 34 (0-35) U/L Alkaline Phosphatase 121 (38-126) U/L Serum Total Protein 6.4 (6.3-8.2) g/dL Albumin 4.1 (3.5-5.0) g/dL - Progress Progress: improved, pain not gone completely, re-examined Progress Note: 09/28/24 02:02 59 years old female postop day 3 left endarterectomy is evaluated for increasing pain and swelling/redness without fever or chills. She is given symptomatic treatment for pain, on reevaluation feeling better but not completely resolved. Workup showed white count of 12, chemistries with normal renal functions and a lactate of 1.7. I have obtained CT angio of the neck which showed no intraluminal thrombus but diffuse erythema and circumferential swelling from base of thyroid to the left carotid bulb which could be arteritis/vasculitis/very arterial thrombus. Discussed with Dr. Pope on-call vascular surgeon for [facility], reviewed history, workup, recommended giving dose of vancomycin and transfer to [facility]. Shared the results of workup with patient and family and plan of transfer which she understands and agrees. Discussed with : Other (Dr. Pope vascular surgeon [facility]) Counseled pt/family regarding: lab results, diagnosis, need for follow-up, rad results Medical Desision Making - Discussion of managment Care discussed with:: specialist (Dr. Pope [facility] vascular surgeon) Reviewed:: Test results Agreed on:: Treatment plan, place in obs Will see patient: in hospital - Diagnostic Testing Diagnostic test were ordered, analyzed, and reviewed by me: Yes Radiological Interpretation: Reviewed by me - Risk of complications The pt has a mod risk of morbidity or mortality based on: Need for prescription drug management The pt has a high risk of morbidity or mortality based on: Decision regarding hospitilization or escalation of hosp level of care - Departure Departure Disposition: Transfer Clinical Impression: Vasculitis, Cellulitis, neck Condition: Stable Critical Care Time: No Referrals: HEIDI MCCARTHY, CONTRACT PROCESSOR [Primary Care Provider] - Follow up/PCP as directed
[2024-09-27] MEDS ORDERED: MORPHINE SULFATE 4 MG INJ ONE (23:49)
[2024-09-27] MEDS ORDERED: Zofran 4 MG/2 ML VIAL ONE (23:49)
[2024-09-27] MEDS: MORPHINE SULFATE 4 MG INJ IV ONE (23:54)
[2024-09-28 00:08] LABS: Absolute Neutrophil Ct (ANC) 7.94 x10^3/uL (1.56-6.13); BASOPHIL % 0.7 % (0.1-1.2); Basophil (Absolute #) 0.09 x10^3/uL (0.01-0.08); Hematocrit 35.7 % (34.1-44.9); IMMATURE GRAN # 0.11 x10^3u/L (0.001-0.031); IMMATURE GRAN % 0.9 % (0.001-0.429); Lymphocyte (Absolute #) 2.38 x10^3/uL (1.18-3.74); Lymphocytes % 19.6 % (19.3-51.7); Mean Cell Volume 87.1 fL (79.4-94.8); Mean Corpuscular Hemoglobin 29.3 pg (25.6-32.2); Mean Corpuscular Hgb Concent. 33.6 g/dL (32.2-35.5); Mean Platelet Volume 10.1 fL (9.4-12.3); Monocytes % 8.3 % (4.7-12.5); Neutrophil % 65.5 % (34.0-71.1); Platelet Count 402 x10^3/uL (182-369); Red Cell Distribution Width 13.5 % (11.7-14.4); White Blood Count 12.1 x10^3/uL (3.98-10.04)
[2024-09-28 00:31] LABS: ALBUMIN 4.1 g/dL (3.5-5.0); ANION GAP 12.8 MEQ/L (5-15); BILIRUBIN,TOTAL 0.5 mg/dL (0.2-1.3); Calcium 9.5 mg/dL (8.4-10.2); Creatinine 1 0.91 mg/dL (0.52-1.04); EST GLOMERULAR FILTRATION RATE 73.6 ML/MIN; Potassium 3.5 mmol/L (3.5-5.1); Total Protein 6.4 g/dL (6.3-8.2)
--- NOTE | 2024-09-28 01:39 | XRAY ---
CLINICAL HISTORY: post op endarterectomy COMPARISON: None. TECHNIQUE: Contrast enhanced thin slice CT angiography scan of the carotid vessels was performed with intravenous contrast. Angiographic images were processed, 3D MIP images were acquired for interpretation. Contiguous axial images were obtained. Reformatted coronal and sagittal images were also reviewed. If IV contrast material had not been administered, the likelihood of detecting abnormalities relevant to the patient's condition would have been substantially decreased. CT scan was performed according to ALARA (as low as reasonably achievable). FINDINGS: Included great vessels of the aortic arch are grossly unremarkable. Circumferential soft tissue is noted around the left common carotid artery extending from the level of thyroid gland up to the level of carotid bulbs. Maximum thickness measures approximately 5 mm. Left common carotid artery appears small in caliber as compared to that of right side extending up to the level of bifurcation. No signs of intraluminal thrombus /dissection Severe stenosis (90%-95%) is noted involving the right carotid bulb, likely secondary to non-calcified plaque. However, distal perfusion is noted. Vertebral arteries are well opacified. Jugular veins are well opacified. Multiple patchy consolidations are noted involving visualized portion of bilateral lung parenchyma. Thyroid gland appears unremarkable. IMPRESSION: 1. Circumferential soft tissue is noted around the left common carotid artery extending from the level of thyroid gland up to the level of carotid bulb as described. This could either represent 1) changes of arteritis /vasculitis (postprocedural) 2) periarterial thrombus. No signs of intraluminal thrombus /dissection 2. Severe stenosis (90%-95%) is noted involving the right carotid bulb, secondary to non-calcified plaque. However, distal perfusion is noted. 3. Multiple patchy consolidations are noted involving visualized portion of bilateral lung parenchyma. Associated small reactive mediastinal lymph nodes. Findings suggestive of infective etiology. Suggested clinical/lab correlation. Electronically Signed by: Basilio Barton MD. (09/28/2024 01:35:13 EST)
[2024-09-28 02:05] LABS: Appearance Clear (Clear); Bacteria None Seen /HPF (None Seen); Bilirubin Negative (Negative); Blood Negative (Negative); Epithelial Cells Rare /HPF (None Seen); Glucose, Urine Negative (Negative); Hyaline Casts NONE SEEN /LPF (0-2); Ketones Negative (Negative); Leukocyte Esterase Small (Negative); Nitrite Negative (Negative); Protein,Urine Dip Negative (Negative); RBC 0-2 /HPF (0-5); Specific Gravity >=1.030 (1.005-1.030)
[2024-09-28] MEDS ORDERED: VANCOMYCIN 2 GRAM/400 ML BAG 2 GM/400 ML PIGGYBACK IV ONE (02:27)
[2024-09-28] MEDS: Zofran 4 MG/2 ML VIAL IV ONE (02:29)
[2024-09-28] MEDS: VANCOMYCIN 2 GRAM/400 ML BAG 2 GM/400 ML PIGGYBACK IV ONE (02:29)
[2024-09-28 02:58] VITALS: RESP 16
[2024-09-28 04:07] VITALS: BP 135/116; PULSE 98; O2SAT 98
== END 2024-09-28 04:38 | disposition short-term general hospital (02) ==
LOC: ED 22:45
DX: L03.221 Cellulitis of neck (principal); I77.6 Arteritis, unspecified; Z98.890 Other specified postprocedural states
CPT/HCPCS: 36415; 70498; 80053; 81001; 83605; 85025; 87040; 96365; 96374; 96376; 99285; J2270; J2405; Q0162; J3370

== ENCOUNTER 2025-01-08 14:56 | Observation (INO) | payer OTHER ==
[2025-01-08 16:09] LABS: ALBUMIN 4.3 g/dL (3.5-5.0); ANION GAP 17.2 MEQ/L (5-15); BILIRUBIN,TOTAL 0.6 mg/dL (0.2-1.3); Calcium 9.1 mg/dL (8.4-10.2); Creatinine 1 1.08 mg/dL (0.52-1.04); EST GLOMERULAR FILTRATION RATE 59.9 ML/MIN; Potassium 4.2 mmol/L (3.5-5.1); Total Protein 6.8 g/dL (6.3-8.2)
[2025-01-08 16:22] LABS: Hematocrit 45.7 % (34.1-44.9); Hemoglobin 15.1 g/dL (11.2-15.7); Mean Cell Volume 85.1 fL (79.4-94.8); Mean Corpuscular Hemoglobin 28.1 pg (25.6-32.2); Mean Platelet Volume 10.4 fL (9.4-12.3); Platelet Count 411 x10^3/uL (182-369); Red Blood Count 5.37 x10^6/uL (3.93-5.22); Red Cell Distribution Width 13.8 % (11.7-14.4)
--- NOTE | 2025-01-08 16:22 | ERPHSYRPT ---
- History of Present Illness Time Seen by Provider: 01/08/25 15:16 Source: patient Exam Limitations: no limitations Patient Subjective Stated Complaint: C/O chest pain that started yesterday morning. Patient then states, "well actually by abdomen hurts worse than my chest." Denies SOB. Triage Nursing Assessment: Patient ambulated back to ER. She is alert and oriented; tearful. NO SOB. Skin tone normal. 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 Physician History: 59-year-old female with history of coronary artery disease presented in the ER with off-and-on chest pain for quite some time, worsening since yesterday. Patient also reports having mid abdominal pain with nausea and dry heaving. Reports having aches and pains all over and headache. No fever or chills reported. Denies any known sick contact. Patient reports no difficulty breathing or palpitations. Allergies/Adverse Reactions: ciprofloxacin [From Cipro] Allergy (Verified 01/08/25 15:34) Hives Home Medications: ALPRAZolam 1 MG [Xanax 1 mg] 1 mg PO TID 07/02/23 [History] Atorvastatin Calcium [Lipitor] 20 mg PO HS 07/02/23 [History] Clonidine HCl 0.1 mg [Clonidine 0.1 mg Tablet] 2 tab PO BID 07/02/23 [History ] Fenofibrate 160 mg PO HS 07/02/23 [History] Fluoxetine HCl 20 mg [Prozac 20 MG] 20 mg PO DAILY 07/02/23 [History] Ondansetron ODT 4 MG [Zofran Odt 4 mg] 4 mg PO BID PRN PRN 07/02/23 [His tory] Quetiapine Fumarate [Seroquel] 300 mg PO HS PRN PRN 07/02/23 [History] Acetaminophen 325 mg [Tylenol 325 mg] 650 mg PO Q4HPRN PRN 09/27/24 [History] Aspirin EC 325 mg [Ecotrin 325 MG] 325 mg PO DAILY 09/27/24 [History] Cefuroxime Axetil [Cefuroxime] 250 mg PO BID 09/27/24 [History] Hydrocodone/Acetaminophen [Hydrocodone-Acetamin 5-325 mg] 1 tab PO Q6HPRN PRN MDD 4 09/27/24 [History] Lansoprazole [Prevacid] 30 mg PO DAILY 09/27/24 [History] Hx Tetanus, Diphtheria Vaccination/Date Given: Yes Hx Influenza Vaccination/Date Given: No Hx Pneumococcal Vaccination/Date Given: No Travel Risk - International Travel Have you traveled outside of the country in past 3 weeks: No - Emerging Infectious Disease Are you exhibiting symptoms associated with any current EIDs: Yes Symptoms: Abdominal Pain, Headaches/Body Aches/ - Review of Systems Constitutional: No Symptoms Eyes: No Symptoms Ears, Nose, & Throat: No Symptoms Respiratory: Cough Cardiac: Chest Pain Abdominal/Gastrointestinal: Abdominal Pain, Nausea Genitourinary Symptoms: No Symptoms Musculoskeletal: Myalgias Neurological: Headache Psychological: No Symptoms Hematologic/Lymphatic: No Symptoms Immunological/Allergic: No Symptoms - Past Medical History Pertinent Past Medical History: Yes Neurological History: No Pertinent History ENT History: No Pertinent History Cardiac History: Coronary Artery Disease, High Cholesterol, Hypertension Respiratory History: No Pertinent History Endocrine Medical History: No Pertinent History Musculoskeletal History: Arthritis, Fractures GI Medical History: Diverticulitis, Diverticulosis, GERD, Gallbladder Disease History: No Pertinent History Psycho-Social History: Anxiety, Depression Female Reproductive Disorders: Endometriosis Other Medical History: Bowel BLOCKAGE 2012, insomnia, 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 ex lap. bowel obstruction repair. lt carotid endarterectomy. Significant Family History: no pertinent family hx - Social History Smoking Status: Current every day smoker How long have you smoked: 17 yrs Exposure to second hand smoke: Yes Drug Use: none - Social Determinants of Health Will the patient participate in the screening: Declined to provide - Nursing Vital Signs Nursing Vital Signs: Initial Vital Signs Temperature 98.8 F 01/08/25 14:57 Pulse Rate 100 H 01/08/25 14:57 Respiratory Rate 22 01/08/25 14:57 Blood Pressure 148/80 01/08/25 14:57 O2 Sat by Pulse Oximetry 98 01/08/25 14:57 Pain Scale Pain Intensity 8 - Physical Exam General Appearance: no apparent distress, alert Eye Exam: PERRL/EOMI Ears, Nose, Throat Exam: normal ENT inspection Neck Exam: normal inspection, non-tender, supple, full range of motion Respiratory Exam: normal breath sounds, lungs clear Cardiovascular Exam: regular rate/rhythm, normal heart sounds Gastrointestinal/Abdomen Exam: soft, normal bowel sounds, tenderness (Periumbilical tenderness) Back Exam: normal inspection, normal range of motion Extremity Exam: normal inspection, normal range of motion Neurologic Exam: alert, oriented x 3, 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, 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, sensation nml, motor deficits, No normal mood/affect Skin Exam: normal color SpO2 Interpretation: normal SpO2: 98 O2 Delivery: Room Air - Course EKG Interpreted by Me: RATE ([id number]), Sinus Rhythm, Sinus Tach, NORMAL INTERVALS, NORMAL QRS Ordered Tests: Active Orders 24 hr Category Date Time Status Call Admit Doctor for Orders ON ADMISSION Care 01/08/25 21:29 Active Code Status Order ROUTINE Care 01/08/25 21:[address] in Observation ROUTINE Care 01/08/25 21:29 Active Telemetry q6h Care 01/08/25 21:29 Active ABDOMEN AND PELVIS W/0 CONTRAS [CT] Stat Exams 01/08/25 15:57 Completed CHEST WITHOUT CONTRAST [CT] Stat Exams 01/08/25 16:33 Completed AMYLASE Stat Lab 01/08/25 15:50 Completed BLOOD CULTURE Stat Lab 01/08/25 19:46 Received CBC W DIFF Stat Lab 01/08/25 15:50 Completed CMP Stat Lab 01/08/25 15:50 Completed LIPASE Stat Lab 01/08/25 15:50 Completed Lactic Acid Stat Lab 01/08/25 19:22 Completed Manual Differential NC Stat Lab 01/08/25 15:50 Completed PROCALCITONIN Stat Lab 01/08/25 19:05 Completed TROPONIN Q4H Lab 01/08/25 15:50 Completed TROPONIN Q4H Lab 01/08/25 19:05 Completed TROPONIN Q4H Lab 01/08/25 23:30 Ordered UA W/RFX UR CULTURE Stat Lab 01/08/25 17:48 Completed Pulse Oximetry CONTINUOUS RT 01/08/25 21:29 Completed Respiratory Therapy Consult ONCE RT 01/08/25 21:29 Completed Transfer Order Routine Transfer 01/08/25 Completed Medication Summary Generic Name Dose Route Start Last Admin Trade Name Freq PRN Reason Stop Dose Admin Acetaminophen 650 mg 01/08/25 23:40 Acetaminophen 325 Mg Tablet PO 02/07/25 23:39 Q6H PRN PRN PAIN AND/OR FEVER Bisacodyl 10 mg 01/09/25 00:05 Bisacodyl 10 Mg Supp.Rect WI 01/09/25 00:06 STAT ONE Enoxaparin Sodium 40 mg 01/09/25 10:00 Enoxaparin Sodium 40 Mg/0.4 Ml Syringe SQ 02/08/25 09:59 DAILY HARPAL Lactated Ringer's 1,000 mls @ 100 mls/hr 01/08/25 23:45 Lactated Ringers IV 02/07/25 23:44 .Q10H HAPRAL Promethazine HCl 12.5 mg/ 100.5 mls @ 201 mls/hr 01/08/25 23:45 Sodium Chloride IV 02/07/25 23:44 Q4H PRN PRN UNCONTROLLED NAUSEA Morphine Sulfate 2 mg 01/08/25 23:45 Morphine Sulfate 2 Mg/Ml Inj IV 01/13/25 23:44 Q2H PRN PRN SEVERE PAIN Polyethylene Glycol 17 gm 01/09/25 10:00 Polyethylene Glycol 3350 17 Gm Packet PO 02/08/25 09:59 DAILY HARPAL Discontinued Medications Generic Name Dose Route Start Last Admin Trade Name Armando PRN Reason Stop Dose Admin Diphenhydramine HCl 25 mg 01/08/25 16:12 01/08/25 16:55 Diphenhydramine Hcl 50 Mg/Ml Vial IV 01/08/25 16:13 Not Given STAT ONE Sodium Chloride 1,000 mls @ 999 mls/hr 01/08/25 15:57 01/08/25 17:37 Sodium Chloride 0.9% 1000 Ml IV 01/08/25 16:57 Infused .Q1H1M STA Infusion Sodium Chloride Confirm 01/08/25 16:29 Sodium Chloride 0.9% 1000 Ml Administered 01/08/25 16:30 Dose 1,000 mls @ ud .ROUTE .STK-MED ONE Piperacillin Sod/Tazobactam 100 mls @ 200 mls/hr 01/08/25 18:04 01/08/25 20:53 Sod 3.375 gm/ Sodium Chloride IV 01/08/25 18:33 Infused STAT ONE Infusion Sodium Chloride Confirm 01/08/25 18:41 Sodium Chloride 100ml Mini-Bag Plus Administered 01/08/25 18:42 Dose 100 mls @ ud IV .STK-MED ONE Morphine Sulfate 4 mg 01/08/25 15:57 01/08/25 16:30 Morphine Sulfate 4 Mg/Ml Injection IV 01/08/25 15:58 4 mg STAT ONE Administration Morphine Sulfate Confirm 01/08/25 16:28 Morphine Sulfate 4 Mg/Ml Injection Administered 01/08/25 16:29 Dose 4 mg .ROUTE .STK-MED ONE Morphine Sulfate 4 mg 01/08/25 19:14 01/08/25 19:18 Morphine Sulfate 4 Mg/Ml Injection IV 01/08/25 19:15 4 mg STAT ONE Administration Morphine Sulfate Confirm 01/08/25 19:17 Morphine Sulfate 4 Mg/Ml Injection Administered 01/08/25 19:18 Dose 4 mg .ROUTE .STK-MED ONE Ondansetron HCl 4 mg 01/08/25 15:57 01/08/25 16:30 Ondansetron Hcl 4 Mg/2 Ml Vial IV 01/08/25 15:58 4 mg STAT ONE Administration Ondansetron HCl Confirm 01/08/25 16:28 Ondansetron Hcl 4 Mg/2 Ml Vial Administered 01/08/25 16:29 Dose 4 mg .ROUTE .STK-MED ONE Piperacillin Sod/Tazobactam Sod Confirm 01/08/25 18:40 Piperacillin/Tazobactam Sodium 3.375 Gm Vial Administered 01/08/25 18:41 Dose 3.375 gm IV .STK-MED ONE Promethazine HCl Confirm 01/09/25 00:09 Promethazine Hcl 25 Mg/Ml Vial Administered 01/09/25 00:10 Dose 25 mg .ROUTE .STK-MED ONE Lab/Rad Data: Laboratory Result Diagrams 01/08/25 15:50 01/08/25 15:50 Laboratory Results 01/08/25 01/08/25 01/08/25 Range/Units 19:22 19:05 19:05 WBC (3.98-10.04) x10^3/uL RBC (3.93-5.22) x10^6/uL Hgb (11.2-15.7) g/dL Hct (34.1-44.9) % MCV (79.4-94.8) fL MCH (25.6-32.2) pg MCHC (32.2-35.5) g/dL RDW (11.7-14.4) % Plt Count (182-369) x10^3/uL MPV (9.4-12.3) fL Segmented Neutrophils (34.0-71.1) % Lymphocytes (Manual) (19.3-51.7) % Monocytes (Manual) (4.7-12.5) % Platelet Estimate (NORMAL) RBC Morphology Sodium (135-145) mmol/L Potassium (3.5-5.1) mmol/L Chloride (98-107) mmol/L Carbon Dioxide (22-30) mmol/L Anion Gap (5-15) MEQ/L BUN (7-17) mg/dL Creatinine (0.52-1.04) mg/dL Estimated GFR ML/MIN Glucose (74-106) mg/dL Lactic Acid 0.9 (0.4-2.0) Calcium (8.4-10.2) mg/dL Total Bilirubin (0.2-1.3) mg/dL AST (14-36) U/L ALT (0-35) U/L Alkaline Phosphatase (38-126) U/L Troponin I < 0.012 (0.000-0.033) ng/mL Serum Total Protein (6.3-8.2) g/dL Albumin (3.5-5.0) g/dL Amylase (30-110) U/L Lipase (23-300) U/L Procalcitonin 0.102 H (0.030-0.080) ng/mL Urine Color (Yellow) Urine Appearance (Clear) Urine pH (4.6-8.0) Ur Specific [place] (1.005-1.030) Urine Protein (Negative) Urine Glucose (UA) (Negative) mg/dL Urine Ketones (Negative) Urine Blood (Negative) Urine Nitrite (Negative) Urine Bilirubin (Negative) Urine Urobilinogen (0.2) mg/dL Ur Leukocyte Esterase (Negative) U Hyaline Cast (Auto) (0-2) /LPF Urine Microscopic RBC (0-5) /HPF Urine Microscopic WBC (0-5) /HPF Ur Epithelial Cells (None Seen) /HPF Urine Bacteria (None Seen) /HPF Urine Culture Reflexed (NO) Influenza Type A Ag (NEGATIVE) Influenza Type B Ag (NEGATIVE) RSV (PCR) (NEGATIVE) SARS-CoV-2 (PCR) (NEGATIVE) 01/08/25 01/08/25 01/08/25 Range/Units 17:48 15:52 15:50 WBC (3.98-10.04) x10^3/uL RBC (3.93-5.22) x10^6/uL Hgb (11.2-15.7) g/dL Hct (34.1-44.9) % MCV (79.4-94.8) fL MCH (25.6-32.2) pg MCHC (32.2-35.5) g/dL RDW (11.7-14.4) % Plt Count (182-369) x10^3/uL MPV (9.4-12.3) fL Segmented Neutrophils (34.0-71.1) % Lymphocytes (Manual) (19.3-51.7) % Monocytes (Manual) (4.7-12.5) % Platelet Estimate (NORMAL) RBC Morphology Sodium (135-145) mmol/L Potassium (3.5-5.1) mmol/L Chloride (98-107) mmol/L Carbon Dioxide (22-30) mmol/L Anion Gap (5-15) MEQ/L BUN (7-17) mg/dL Creatinine (0.52-1.04) mg/dL Estimated GFR ML/MIN Glucose (74-106) mg/dL Lactic Acid (0.4-2.0) Calcium (8.4-10.2) mg/dL Total Bilirubin (0.2-1.3) mg/dL AST (14-36) U/L ALT (0-35) U/L Alkaline Phosphatase (38-126) U/L Troponin I < 0.012 (0.000-0.033) ng/mL Serum Total Protein (6.3-8.2) g/dL Albumin (3.5-5.0) g/dL Amylase (30-110) U/L Lipase (23-300) U/L Procalcitonin (0.030-0.080) ng/mL Urine Color Yellow (Yellow) Urine Appearance Clear (Clear) Urine pH 6.0 (4.6-8.0) Ur Specific [place] <=1.005 (1.005-1.030) Urine Protein Negative (Negative) Urine Glucose (UA) Negative (Negative) mg/dL Urine Ketones Negative (Negative) Urine Blood Negative (Negative) Urine Nitrite Negative (Negative) Urine Bilirubin Negative (Negative) Urine Urobilinogen 0.2 (0.2) mg/dL Ur Leukocyte Esterase Trace A (Negative) U Hyaline Cast (Auto) NONE SEEN (0-2) /LPF Urine Microscopic RBC 0-2 (0-5) /HPF Urine Microscopic WBC 0-2 (0-5) /HPF Ur Epithelial Cells None Seen (None Seen) /HPF Urine Bacteria None Seen (None Seen) /HPF Urine Culture Reflexed NO (NO) Influenza Type A Ag NEGATIVE (NEGATIVE) Influenza Type B Ag NEGATIVE (NEGATIVE) RSV (PCR) NEGATIVE (NEGATIVE) SARS-CoV-2 (PCR) NEGATIVE (NEGATIVE) 01/08/25 01/08/25 Range/Units 15:50 15:50 WBC 28.2 H* (3.98-10.04) x10^3/uL RBC 5.37 H (3.93-5.22) x10^6/uL Hgb 15.1 (11.2-15.7) g/dL Hct 45.7 H (34.1-44.9) % MCV 85.1 (79.4-94.8) fL MCH 28.1 (25.6-32.2) pg MCHC 33.0 (32.2-35.5) g/dL RDW 13.8 (11.7-14.4) % Plt Count 411 H (182-369) x10^3/uL MPV 10.4 (9.4-12.3) fL Segmented Neutrophils 89 H (34.0-71.1) % Lymphocytes (Manual) 8 L (19.3-51.7) % Monocytes (Manual) 3 L (4.7-12.5) % Platelet Estimate NORMAL (NORMAL) RBC Morphology NORMAL Sodium 139 (135-145) mmol/L Potassium 4.2 (3.5-5.1) mmol/L Chloride 108 H (98-107) mmol/L Carbon Dioxide 18 L (22-30) mmol/L Anion Gap 17.2 H (5-15) MEQ/L BUN 10 (7-17) mg/dL Creatinine 1.08 H (0.52-1.04) mg/dL Estimated GFR 59.9 ML/MIN Glucose 98 (74-106) mg/dL Lactic Acid (0.4-2.0) Calcium 9.1 (8.4-10.2) mg/dL Total Bilirubin 0.60 (0.2-1.3) mg/dL AST 33 (14-36) U/L ALT 22 (0-35) U/L Alkaline Phosphatase 99 (38-126) U/L Troponin I (0.000-0.033) ng/mL Serum Total Protein 6.8 (6.3-8.2) g/dL Albumin 4.3 (3.5-5.0) g/dL Amylase 37 (30-110) U/L Lipase 17 L (23-300) U/L Procalcitonin (0.030-0.080) ng/mL Urine Color (Yellow) Urine Appearance (Clear) Urine pH (4.6-8.0) Ur Specific [place] (1.005-1.030) Urine Protein (Negative) Urine Glucose (UA) (Negative) mg/dL Urine Ketones (Negative) Urine Blood (Negative) Urine Nitrite (Negative) Urine Bilirubin (Negative) Urine Urobilinogen (0.2) mg/dL Ur Leukocyte Esterase (Negative) U Hyaline Cast (Auto) (0-2) /LPF Urine Microscopic RBC (0-5) /HPF Urine Microscopic WBC (0-5) /HPF Ur Epithelial Cells (None Seen) /HPF Urine Bacteria (None Seen) /HPF Urine Culture Reflexed (NO) Influenza Type A Ag (NEGATIVE) Influenza Type B Ag (NEGATIVE) RSV (PCR) (NEGATIVE) SARS-CoV-2 (PCR) (NEGATIVE) - Progress Progress: improved, pain not gone completely Progress Note: 01/08/25 19:37 59-year-old is evaluated in the ER for multiple nonspecific symptoms with chest pain going on for quite some time and recently worsening and abdominal pain with nausea and dry heaving. She is given fluids and symptomatic treatment, on reevaluation she is feeling better but pain is not completely resolved in the abdomen. No chest pain on reevaluation. She is not having any difficulty breathing with oxygen saturation in upper 90s. EKG is sinus rhythm with no ST elevation. White count of 28, normal lactate, mildly low bicarb and mildly elevated gap. No UTI. Flu COVID and RSV are negative. Troponins are negative. CT chest showed questionable infiltrate bilaterally and CT abdomen pelvis showed diffuse thickening of ascending and sigmoid colon which I believe patient has colitis, more of a infectious etiology rather than ischemia which is highly unlikely with lactate of 0.9. She is given a dose of Zosyn. Blood cultures are pending x 2. I believe patient would benefit with observation admission, monitoring of leukocytosis and further testing. Discussed results of workup with patient and family and plan of admission which they understand and agree. Discussed with Dr. Little, reviewed history, workup and patient is excepted for admission. Complexity of problems addressed. High acuity Complexity of data analyzed/reviewed: Extensive Risk of morbidity/mortality associated with condition: High risk Discussed with Dr.: Breanne Will see patient in: hospital (observation) Counseled pt/family regarding: lab results, diagnosis, rad results Medical Desision Making - Independent Historian Additional History obtained from: Spouse - Discussion of managment Care discussed with:: hospitalist (Dr. Delacruz) Reviewed:: Test results Agreed on:: Treatment plan, place in obs Will see patient: in hospital - Diagnostic Testing Diagnostic test were ordered, analyzed, and reviewed by me: Yes Radiological Interpretation: Reviewed by me, Teleradiologist Report - Risk of complications The pt has a mod risk of morbidity or mortality based on: Need for prescription drug management The pt has a high risk of morbidity or mortality based on: Decision regarding ho spitilization or escalation of hosp level of care - Departure Departure Disposition: Observation Clinical Impression: Colitis, Bilateral pneumonia, Chest pain, Leukocytosis, unspecified Condition: Stable Critical Care Time: No
[2025-01-08 16:25] LABS: White Blood Count 28.2 x10^3/uL (3.98-10.04)
[2025-01-08] MEDS ORDERED: Zofran 4 MG/2 ML VIAL ONE (16:28)
[2025-01-08] MEDS ORDERED: MORPHINE SULFATE 4 MG INJ ONE ×2 (16:28→19:17)
[2025-01-08] MEDS ORDERED: Sodium Chloride 0.9% 1000 ML 1,000 ML ONE (16:29)
[2025-01-08] MEDS: Zofran 4 MG/2 ML VIAL IV ONE (16:30)
[2025-01-08] MEDS: MORPHINE SULFATE 4 MG INJ IV ONE ×2 (16:30→19:18)
[2025-01-08 16:31] LABS: INFLUENZA A NEGATIVE (NEGATIVE); INFLUENZA B NEGATIVE (NEGATIVE); RESPIRATORY SYNCTIAL VIRUS NEGATIVE (NEGATIVE); SARS-CoV-2 Xpert Express NEGATIVE (NEGATIVE)
[2025-01-08 16:31] LABS: Lymphocytes 8 % (19.3-51.7); Monocyte 3 % (4.7-12.5); Neutrophils 89 % (34.0-71.1); Platelet Estimate NORMAL (NORMAL); Total Cells Counted 100
[2025-01-08] MEDS: Sodium Chloride 0.9% 1000 ML 1,000 ML IV STA (16:31)
[2025-01-08] MEDS: BENADRYL 50 MG/ML IV ONE (16:55)
--- NOTE | 2025-01-08 18:01 | XRAY ---
CLINICAL HISTORY: mid abd pain COMPARISON: CT dated 07/03/2023. TECHNIQUE: Non-contrast CT of the abdomen and pelvis was performed, with the following protocol: axial images, and reconstructed coronal and sagittal images. No intravenous contrast was administered. One of the following dose reduction techniques was utilized for this exam: Automated exposure control, adjustment of the mA and/or kV according to patient size, and use of iterative reconstruction. FINDINGS: Abdomen: Liver: Enlarged fatty liver measuring 18.6 cm. No focal lesions, cysts, or masses were identified. Stable finding. Gallbladder and Biliary System: The gallbladder is surgically excised. Stable finding. Pancreas: Pancreatic head, body, and tail are visualized and appear normal in size and density. No pancreatic masses or calcifications were noted. Spleen: Normal in size, shape, and density. No splenic lesions or masses were identified. Kidneys and Adrenal Glands: Both kidneys are normal in size, shape, and position. Cortical thickness is within normal limits. No renal calculi or hydronephrosis. Adrenal glands are unremarkable. Appendix: The appendix is normal in size without lake appendiceal fat stranding, and without an appendicolith. No evidence of appendiceal abscess or perforation. Pelvis: Urinary Bladder: Normal in contour and wall thickness. No intraluminal lesions. Uterus, cervix and ovaries: Partial hysterectomy. Vagina: Normal in contour and wall thickness. Peritoneal and Retroperitoneal Structures: No free fluid or abnormal fluid collections were identified within the abdomen or pelvis. No lymphadenopathy was noted. Bowel: Mildly increased fecal loading of the colon with mild mural thickening of the ascending and sigmoid segments measuring up to 8 mm. Stable finding. No evidence of intestinal obstruction or perforation. Bones and Soft Tissues: Spine degenerative changes. Pelvic bones and soft tissues are unremarkable. No fractures or abnormal masses were identified. Still noted calcified middle lobe pulmonary nodule measuring about 1.1 cm. Bilateral basilar atelectasis. Patchy ground glass opacities in the middle lobe and anteromedial basal segment of the left lung base. IMPRESSION: 1. Fatty hepatomegaly. Unchanged. 2. Increased fecal loading of the colon with wall thickening of the ascending and sigmoid segments, stable. 3. New patchy ground glass opacities in the middle lobe and anteromedial basal segment of the left lung base. Suggest dedicated chest CT for further evaluation if warranted. Electronically Signed by: Miquel Jane MD. (01/08/2025 17:55:47 EST)
[2025-01-08 18:11] LABS: Appearance Clear (Clear); Bacteria None Seen /HPF (None Seen); Bilirubin Negative (Negative); Blood Negative (Negative); Epithelial Cells None Seen /HPF (None Seen); Glucose, Urine Negative (Negative); Hyaline Casts NONE SEEN /LPF (0-2); Ketones Negative (Negative); Leukocyte Esterase Trace (Negative); Nitrite Negative (Negative); Protein,Urine Dip Negative (Negative); RBC 0-2 /HPF (0-5); Specific Gravity <=1.005 (1.005-1.030); Urobilinogen 0.2 mg/dL (0.2); WBC 0-2 /HPF (0-5)
--- NOTE | 2025-01-08 18:21 | XRAY ---
CLINICAL HISTORY: pain COMPARISON: Visualized portion of chest in CT neck 09/27/2024 is reviewed. TECHNIQUE: Contiguous axial CT images of the chest were acquired without administration of intravenous contrast. Coronal and sagittal reconstructions were obtained. One of the following dose reduction techniques were utilized for this exam: Automated exposure control, adjustment of the mA and/or kV according to patient size, use of iterative reconstruction. FINDINGS: Lungs: There is interval resolution of bilateral upper lobes consolidation with some fibrotic scars remaining. Subpleural interstitial and septal thickening is noted in the anterior segments of bilateral upper lobes and posterior segments of bilateral lower lobes with patchy ground glass attenuation raising concern for atypical infection or non-specific interstitial pneumonitis. A few tiny 2-3mm nodules are seen in bilateral lungs with 11mm largest calcified nodule in the lateral segment of right middle lobe, likely signifying old healed granuloma. No pleural effusion or pleural thickening. Mediastinum: The mediastinum is normal in size and contour. A few enlarged mediastinal lymph nodes are seen, likely reactive/non-specific, largest about 11mm in subcarinal location. The heart size is within normal limits. Hilar Structures: The hilar structures appear normal without enlargement or abnormality. Trachea and Main Bronchi: The trachea and main bronchi are patent without evidence of obstruction or abnormality. Chest Wall: A small periphrally calcified lesion is seen in the left breast measuring 12 x 13mm, for US/mammography correlation. Some surgical clips are noted in the left root of neck. Upper Abdomen: Visualized portions of the liver, spleen, adrenal glands, and kidneys are unremarkable. Cholecystectomy clips are seen in place. Bones: Visualized osseous structures are normal, no evidence of fracture or lytic/sclerotic lesions. Mild to moderate degenerative changes are seen in the spine. IMPRESSION: 1. Interval resolution of bilateral apical zone consolidations with some fibrotic bands and scars left. 2. Subpleural interstitial and septal thickening involving the anterior segments of bilateral upper lobes and posterior segments of bilateral lower lobes with patchy ground glass attenuation raising concern for atypical infection with differential possibility of non-specific interstitial pneumonitis. Clinical correlation is advised. 3. Bilateral tiny 2-3mm nodules with 11mm calcified nodule in the lateral segment of right middle lobe likely signifying old healed granuloma. 4. A small periphrally calcified lesion is seen in the left breast measuring 12 x 13mm, US/mammography correlation is advised. 5. Rest of the findings as detailed. Electronically Signed by: Miquel Jane MD. (01/08/2025 18:16:12 EST)
[2025-01-08] MEDS ORDERED: PIPERACILLIN/TAZOBACTAM IV ONE (18:40)
[2025-01-08] MEDS ORDERED: Sodium Chloride 100ML MINI-BAG PLUS 100 ML IV ONE (18:41)
[2025-01-08] MEDS: PIPERACILLIN/TAZOBACTAM 3.375 GM in Sodium Chloride 100ML MINI-BAG PLUS 100 ML IV ONE (18:41)
--- NOTE | 2025-01-08 23:52 | PCM.HP ---
History of Present Illness - Chief Complaint Chief Complaint: abdominal pain, vomiting Date: 01/08/25 History of Present Illness: 59-year-old woman with a history of hypertension, carotid disease, anxiety, TIAs, and tobacco use, who presents with various complaints centered around abdominal pain, nausea, chest pain, headache, and presyncope. Of note, patient's history is confusing to unpack and variable on repeat telling us. However, patient's main complaint appears to be abdominal pain. She notes that for the last month, she has been unable to eat much as she gets nauseated whenever she tries to eat, and thinks that she has lost 20 pounds. For the last 3 weeks, she has been having lower blood pressure, and she has stopped taking her blood pressure medications. However, over that time, she has frequent lightheadedness and presyncope. For the last 2 days, she been having crampy bilateral lower quadrant abdominal pain, intermittent, not radiating. At times, she describes the nausea as new but then other times it is worsened from the baseline nausea that she has had for the last month. She notes that she has had no bowel movement for at least the last 4 days but maybe longer. She has also had intermittent left sided chest pressure, not associated with any changes in dyspnea or nausea, occurring at separate times from her abdominal pain, occurring at rest. She has no history of coronary disease. She says that she has felt constant dyspnea since a prior right sided carotid surgery in September, although upon further discussion, this appears to be more fatigue than dyspnea. She denies any cough, fevers, sore throat. Denies any dysuria. - Review of Systems Constitutional: Fatigue, Malaise, Night Sweats, Weight Loss, No Fever, No Chills, No Weakness Eyes: No Symptoms Ears, Nose, & Throat: No Symptoms Respiratory: Short Of Breath, No Cough, No Orthopnea, No Stridor, No Wheezing Cardiac: Chest Pain, No Edema, No Palpitations, No Syncope, No Orthopnea, No PND Abdominal/Gastrointestinal: Abdominal Pain, Nausea, Vomiting, Constipation, Appetite Changes, No Diarrhea, No Dysphagia Genitourinary Symptoms: No Dysuria, No Frequency, No Hematuria Musculoskeletal: No Back Pain, No Neck Pain, No Joint Pain Skin: No Symptoms Neurological: No Symptoms Psychological: Anxiety Endocrine: No Symptoms Hematologic/Lymphatic: No Symptoms Immunological/Allergic: No Symptoms Medications & Allergies Home Medications: Home Medication List ALPRAZolam 1 MG [Xanax 1 mg] 1 mg PO TID 07/02/23 [History Confirmed 01/08/25] Atorvastatin Calcium [Lipitor] 20 mg PO HS 07/02/23 [History Confirmed 09/27/24] Clonidine HCl 0.1 mg [Clonidine 0.1 mg Tablet] 2 tab PO BID 07/02/23 [History Confirmed 09/27/24] Fenofibrate 160 mg PO HS 07/02/23 [History Confirmed 09/27/24] Fluoxetine HCl 20 mg [Prozac 20 MG] 20 mg PO DAILY 07/02/23 [History Confirmed 09/27/24] Ondansetron ODT 4 MG [Zofran Odt 4 mg] 4 mg PO BID PRN PRN 07/02/23 [History Confirmed 09/27/24] Quetiapine Fumarate [Seroquel] 300 mg PO HS PRN PRN 07/02/23 [History Confirmed 09/27/24] Acetaminophen 325 mg [Tylenol 325 mg] 650 mg PO Q4HPRN PRN 09/27/24 [History Confirmed 09/27/24] Aspirin EC 325 mg [Ecotrin 325 MG] 325 mg PO DAILY 09/27/24 [History Confirmed 09/27/24] Cefuroxime Axetil [Cefuroxime] 250 mg PO BID 09/27/24 [History Confirmed 09/27/24] Hydrocodone/Acetaminophen [Hydrocodone-Acetamin 5-325 mg] 1 tab PO Q6HPRN PRN MDD 4 09/27/24 [History Confirmed 09/27/24] Lansoprazole [Prevacid] 30 mg PO DAILY 09/27/24 [History Confirmed 09/27/24] Allergies/Adverse Reactions: Allergies Allergy/AdvReac Type Severity Reaction Status Date / Time ciprofloxacin [From Cipro] Allergy Hives Verified 01/08/25 15:34 - Past Medical History Past Medical History: Yes Neurological History: No Pertinent History ENT History: No Pertinent History Cardiac History: Coronary Artery Disease, High Cholesterol, Hypertension Respiratory History: No Pertinent History Endocrine Medical History: No Pertinent History Musculoskelatal History: Arthritis, Fractures GI Medical History: Diverticulitis, Diverticulosis, GERD, Gallbladder Disease History: No Pertinent History Pyscho-Social History: Anxiety, Depression Reproductive Disorders: Endometriosis Comment: Bowel BLOCKAGE 2012, insomnia, Fact Checker: Dr. English - Past Surgical History Past Surgical History: Yes Neuro Surgical History: No Pertinent History Cardiac History: No Pertinent History Respiratory Surgery: No Pertinent History GI Surgical History: Cholecystectomy, Other Genitourinary Surgical Hx: No Pertinent History Musculskeletal Surgical Hx: Orthopedic Surgery Female Surgical History: Hysterectomy Other Surgical History: Fracture of R foot in 2010. ex lap. bowel obstruction repair. lt carotid endarterectomy. Significant Family History: heart disease, diabetes, hypertension - Social History Smoking Status: Current every day smoker (1/2 pack per day) How long have you smoked: 15 yrs Exposure to second hand smoke: Yes Alcohol: None Drug Use: none - Social Determinants of Health Will the patient participate in the screening: Yes Do you worry about a steady place to live?: No Do you have any problems with any of the following?: No known problems In the past 12 months,have you had to go without utilities?: No Have you or anyone in your house had to go without enough: No Transportation Issues: No Has anyone in your support network made you feel unsafe?: No Does the patient want assistance with any of the above?: No - Physical Exam Vital Signs: Vital Signs - 24 hr Temp Pulse Resp BP BP Pulse Ox 01/08/25 23:16 96 01/08/25 23:13 70 22 96 01/08/25 21:11 97.6 F 68 20 137/61 96 01/08/25 20:00 80 15 95/77 96 01/08/25 19:57 98 01/08/25 19:31 75 14 127/72 01/08/25 19:02 71 21 165/90 96 01/08/25 18:30 85 26 H 131/111 01/08/25 18:00 83 20 129/82 97 01/08/25 17:30 78 16 115/70 99 01/08/25 17:00 73 14 119/76 01/08/25 16:50 77 9 L 99 01/08/25 16:42 87 19 99 01/08/25 15:30 89 30 H 136/79 01/08/25 14:57 98.8 F 100 H 22 148/80 98 Physical Exam GEN: Lying in bed in mild distress from intermittent pain and nausea HENT: Normocephalic, atraumatic. Dry mucous membranes. EYES: Normal inspection, anicteric sclera, extraocular movements intact. NECK: Supple, full range of motion CV: Regular rate and rhythm, no murmurs, no gallops. No JVD or edema. PULM: Clear to auscultation bilaterally, no work of breathing. On room air. ABD: Diffusely tender without guarding or rebound. No distention MSK: No joint effusions, full range of motion SKIN: No rashes, normal color. NEURO: Face symmetric, no focal motor or sensory deficits. PSYCH: Alert, oriented x 3, appears anxious affect Results - Labs Lab/Micro Results: Lab Results-Last 24 Hours 01/08/25 01/08/25 01/08/25 Range/Units 15:50 15:50 15:50 WBC 28.2 H* (3.98-10.04) x10^3/uL RBC 5.37 H (3.93-5.22) x10^6/uL Hgb 15.1 (11.2-15.7) g/dL Hct 45.7 H (34.1-44.9) % MCV 85.1 (79.4-94.8) fL MCH 28.1 (25.6-32.2) pg MCHC 33.0 (32.2-35.5) g/dL RDW 13.8 (11.7-14.4) % Plt Count 411 H (182-369) x10^3/uL MPV 10.4 (9.4-12.3) fL Segmented Neutrophils 89 H (34.0-71.1) % Lymphocytes (Manual) 8 L (19.3-51.7) % Monocytes (Manual) 3 L (4.7-12.5) % Platelet Estimate NORMAL (NORMAL) RBC Morphology NORMAL Sodium 139 (135-145) mmol/L Potassium 4.2 (3.5-5.1) mmol/L Chloride 108 H (98-107) mmol/L Carbon Dioxide 18 L (22-30) mmol/L Anion Gap 17.2 H (5-15) MEQ/L BUN 10 (7-17) mg/dL Creatinine 1.08 H (0.52-1.04) mg/dL Estimated GFR 59.9 ML/MIN Glucose 98 (74-106) mg/dL Lactic Acid (0.4-2.0) Calcium 9.1 (8.4-10.2) mg/dL Total Bilirubin 0.60 (0.2-1.3) mg/dL AST 33 (14-36) U/L ALT 22 (0-35) U/L Alkaline Phosphatase 99 (38-126) U/L Troponin I < 0.012 (0.000-0.033) ng/mL Serum Total Protein 6.8 (6.3-8.2) g/dL Albumin 4.3 (3.5-5.0) g/dL Amylase 37 (30-110) U/L Lipase 17 L (23-300) U/L Procalcitonin (0.030-0.080) ng/mL Urine Color (Yellow) Urine Appearance (Clear) Urine pH (4.6-8.0) Ur Specific [place] (1.005-1.030) Urine Protein (Negative) Urine Glucose (UA) (Negative) mg/dL Urine Ketones (Negative) Urine Blood (Negative) Urine Nitrite (Negative) Urine Bilirubin (Negative) Urine Urobilinogen (0.2) mg/dL Ur Leukocyte Esterase (Negative) U Hyaline Cast (Auto) (0-2) /LPF Urine Microscopic RBC (0-5) /HPF Urine Microscopic WBC (0-5) /HPF Ur Epithelial Cells (None Seen) /HPF Urine Bacteria (None Seen) /HPF Urine Culture Reflexed (NO) Influenza Type A Ag (NEGATIVE) Influenza Type B Ag (NEGATIVE) RSV (PCR) (NEGATIVE) SARS-CoV-2 (PCR) (NEGATIVE) 01/08/25 01/08/25 01/08/25 Range/Units 15:52 17:48 19:05 WBC (3.98-10.04) x10^3/uL RBC (3.93-5.22) x10^6/uL Hgb (11.2-15.7) g/dL Hct (34.1-44.9) % MCV (79.4-94.8) fL MCH (25.6-32.2) pg MCHC (32.2-35.5) g/dL RDW (11.7-14.4) % Plt Count (182-369) x10^3/uL MPV (9.4-12.3) fL Segmented Neutrophils (34.0-71.1) % Lymphocytes (Manual) (19.3-51.7) % Monocytes (Manual) (4.7-12.5) % Platelet Estimate (NORMAL) RBC Morphology Sodium (135-145) mmol/L Potassium (3.5-5.1) mmol/L Chloride (98-107) mmol/L Carbon Dioxide (22-30) mmol/L Anion Gap (5-15) MEQ/L BUN (7-17) mg/dL Creatinine (0.52-1.04) mg/dL Estimated GFR ML/MIN Glucose (74-106) mg/dL Lactic Acid (0.4-2.0) Calcium (8.4-10.2) mg/dL Total Bilirubin (0.2-1.3) mg/dL AST (14-36) U/L ALT (0-35) U/L Alkaline Phosphatase (38-126) U/L Troponin I < 0.012 (0.000-0.033) ng/mL Serum Total Protein (6.3-8.2) g/dL Albumin (3.5-5.0) g/dL Amylase (30-110) U/L Lipase (23-300) U/L Procalcitonin (0.030-0.080) ng/mL Urine Color Yellow (Yellow) Urine Appearance Clear (Clear) Urine pH 6.0 (4.6-8.0) Ur Specific [place] <=1.005 (1.005-1.030) Urine Protein Negative (Negative) Urine Glucose (UA) Negative (Negative) mg/dL Urine Ketones Negative (Negative) Urine Blood Negative (Negative) Urine Nitrite Negative (Negative) Urine Bilirubin Negative (Negative) Urine Urobilinogen 0.2 (0.2) mg/dL Ur Leukocyte Esterase Trace A (Negative) U Hyaline Cast (Auto) NONE SEEN (0-2) /LPF Urine Microscopic RBC 0-2 (0-5) /HPF Urine Microscopic WBC 0-2 (0-5) /HPF Ur Epithelial Cells None Seen (None Seen) /HPF Urine Bacteria None Seen (None Seen) /HPF Urine Culture Reflexed NO (NO) Influenza Type A Ag NEGATIVE (NEGATIVE) Influenza Type B Ag NEGATIVE (NEGATIVE) RSV (PCR) NEGATIVE (NEGATIVE) SARS-CoV-2 (PCR) NEGATIVE (NEGATIVE) 01/08/25 01/08/25 Range/Units 19:05 19:22 WBC (3.98-10.04) x10^3/uL RBC (3.93-5.22) x10^6/uL Hgb (11.2-15.7) g/dL Hct (34.1-44.9) % MCV (79.4-94.8) fL MCH (25.6-32.2) pg MCHC (32.2-35.5) g/dL RDW (11.7-14.4) % Plt Count (182-369) x10^3/uL MPV (9.4-12.3) fL Segmented Neutrophils (34.0-71.1) % Lymphocytes (Manual) (19.3-51.7) % Monocytes (Manual) (4.7-12.5) % Platelet Estimate (NORMAL) RBC Morphology Sodium (135-145) mmol/L Potassium (3.5-5.1) mmol/L Chloride (98-107) mmol/L Carbon Dioxide (22-30) mmol/L Anion Gap (5-15) MEQ/L BUN (7-17) mg/dL Creatinine (0.52-1.04) mg/dL Estimated GFR ML/MIN Glucose (74-106) mg/dL Lactic Acid 0.9 (0.4-2.0) Calcium (8.4-10.2) mg/dL Total Bilirubin (0.2-1.3) mg/dL AST (14-36) U/L ALT (0-35) U/L Alkaline Phosphatase (38-126) U/L Troponin I (0.000-0.033) ng/mL Serum Total Protein (6.3-8.2) g/dL Albumin (3.5-5.0) g/dL Amylase (30-110) U/L Lipase (23-300) U/L Procalcitonin 0.102 H (0.030-0.080) ng/mL Urine Color (Yellow) Urine Appearance (Clear) Urine pH (4.6-8.0) Ur Specific [place] (1.005-1.030) Urine Protein (Negative) Urine Glucose (UA) (Negative) mg/dL Urine Ketones (Negative) Urine Blood (Negative) Urine Nitrite (Negative) Urine Bilirubin (Negative) Urine Urobilinogen (0.2) mg/dL Ur Leukocyte Esterase (Negative) U Hyaline Cast (Auto) (0-2) /LPF Urine Microscopic RBC (0-5) /HPF Urine Microscopic WBC (0-5) /HPF Ur Epithelial Cells (None Seen) /HPF Urine Bacteria (None Seen) /HPF Urine Culture Reflexed (NO) Influenza Type A Ag (NEGATIVE) Influenza Type B Ag (NEGATIVE) RSV (PCR) (NEGATIVE) SARS-CoV-2 (PCR) (NEGATIVE) - Radiology Impressions Radiology Exams & Impressions: Radiology Procedures Category Date Time Status ABDOMEN AND PELVIS W/0 CONTRAS [CT] Stat Exams 01/08/25 15:57 Completed CHEST WITHOUT CONTRAST [CT] Stat Exams 01/08/25 16:[address] chest subpleural interstitial and septal thickening in the anterior segments of the bilateral upper lobes and posterior segments of the bilateral lower lobes, with patchy groundglass attenuation. Interval resolution of bilateral apical zone consolidations with some residual fibrotic and scarring. CT abdomen/pelvis mildly increased fecal loading of the colon with mild mural wall thickening of the a sending in sigmoid segments. No evidence of intestinal obstruction or perforation. Assessment/Plan (1) Lower abdominal pain Current Visit: No Status: Acute Assessment & Plan: 59-year-old woman with a history of carotid disease, anxiety, TIA, hypertension, and tobacco abuse, who presents with leukocytosis and vague complaints of abdominal pain, nausea, and chest pain. ## Abdominal pain and nausea patient appears to have intermittent nausea for the past month, with worsening in the last 24 hours associated with cramping abdominal pain. She also reports weight loss and poor appetite. Only findings on CT scan appears to be constipation in the distal segment of the colon, and patient reports having no bowel movement for the last 3 to 5 days. The mural thickening that is seen on the CT scan is simply reactive to the colon loaded is not indicative of some kind of colitis, especially as she has no diarrhea to support this. She has a marked leukocytosis (see below), but perhaps this is only a stress reaction to the constipation? Although you have expect to see more signs of obstruction on the CT scan. Give Dulcolax suppository PRN MiraLAX Reassess after bowel movement if patient has resolution of her pain and nausea Start PRN Phenergan (patient notes no relief from Zofran) Start PRN morphine for the pain Not giving further Zosyn as no clinical evidence currently for colitis (see below) Start on clear liquid diet, advance as tolerated ## Leukocytosis this is the one clear finding on patient's labs. However, patient lacks a clear source of infection as a cause. She has some patchy groundglass opacities on chest CT that might supported atypical pneumonitis. However, she has no cough or dyspnea, or any clinical signs of pneumonia. She has some transmural thickening of the distal colon, but in association with constipation, not diarrhea. No signs of UTI on UA. As well, although procalcitonin levels can vary, her level was relatively low, suggesting against a bacterial infection. One consideration is that patient has a respiratory viral syndrome that is giving her more constitutional symptoms, and this is causing her white count to be elevated. Even if that were the case, that would not support antibiotic usage. Of note as well, patient's baseline white count tends to run a little elevated, in the mid teens, although it is higher from her baseline currently. Patient's vital signs are all stable, and clinically appears stable. As such, and given the lack of any clear infectious source, I want to hold off on further antibiotics. And less patient develops signs of sepsis or a clear source present itself. Discontinue Zosyn Follow-up blood cultures Repeat procalcitonin level in the morning; although not definitive, continued low procalcitonin levels would support patient not having a bacterial infection Trend white count ## Presyncope patient has known history of carotid disease, and notes that she is needing to schedule second carotid procedure (first was done in September 2024). Follow-up with her vascular surgeon ## Hypertension patient notes that her blood pressure has been controlled off of blood pressure medications recently. Unable to get her home medications verified yet, but last list only included clonidine. Monitor off her BP meds at this time ## History of TIA Awaiting verification of her home medications; her last home medication list included aspirin and atorvastatin. If able to confirm this, will restart both ## Generalized anxiety disorder Awaiting verification of her home medication list, but if confirmed prior meds, will resume her fluoxetine and Seroquel ## Tobacco abuse patient smokes 1/2 pack/day. She declined nicotine patch. Counseled on tobacco cessation CODE STATUS: DNR confirmed with patient today Prophylaxis: Lovenox 40 Diet: Clear liquids Dispo: Place in observation, expect eventual discharge to home Entirety of encounter took place via live audio/video telemedicine device, with remote physician and patient in hospital, with the assistance of bedside nurse. Code(s): R10.30 - LOWER ABDOMINAL PAIN, UNSPECIFIED Telemedicine Encounter - Telemedicine Encounter Telemedicine Encounter: "The entirety of this encounter was performed via Telemedicine" This visit was performed using real-time audio and video connection between my location and thepatients locationwith the assistance of a surrogateat the patients location. Written or verbal consent was obtained from the patient/guardian to perform this visit [email or web address]. Any patient questions regarding the telemedicine interaction were answered.
[2025-01-09] MEDS ORDERED: Phenergan 25 MG INJ ONE (00:09)
[2025-01-09] MEDS: Phenergan 25 MG INJ*** 12.5 MG in Sodium Chloride 0.9% 100 ML IV PRN (00:20)
[2025-01-09] MEDS ORDERED: Sodium Chloride 0.9% 100 ML ONE (00:26)
[2025-01-09] MEDS: Lactated Ringers 1,000 ML IV SCH (00:32)
[2025-01-09] MEDS: MORPHINE SULFATE 2 MG INJ IV PRN (00:33)
[2025-01-09] MEDS: TYLENOL 325 MG PO PRN (00:37)
[2025-01-09] MEDS: Dulcolax 10 MG SUPP PR ONE (00:45)
[2025-01-09 04:57] LABS: Absolute Neutrophil Ct (ANC) 7.76 x10^3/uL (1.56-6.13); BASOPHIL % 0.5 % (0.1-1.2); Basophil (Absolute #) 0.06 x10^3/uL (0.01-0.08); Eosinophil % 1.2 % (0.7-5.8); Eosinophil (Absolute #) 0.15 x10^3/uL (0.04-0.36); Hematocrit 38.5 % (34.1-44.9); Hemoglobin 12.6 g/dL (11.2-15.7); IMMATURE GRAN # 0.04 x10^3u/L (0.001-0.031); IMMATURE GRAN % 0.3 % (0.001-0.429); Lymphocyte (Absolute #) 3.48 x10^3/uL (1.18-3.74); Lymphocytes % 28.3 % (19.3-51.7); Mean Cell Volume 86.5 fL (79.4-94.8); Mean Corpuscular Hemoglobin 28.3 pg (25.6-32.2); Mean Corpuscular Hgb Concent. 32.7 g/dL (32.2-35.5); Mean Platelet Volume 10.6 fL (9.4-12.3); Monocytes % 6.5 % (4.7-12.5); Neutrophil % 63.2 % (34.0-71.1); Platelet Count 339 x10^3/uL (182-369); Red Blood Count 4.45 x10^6/uL (3.93-5.22); Red Cell Distribution Width 14.1 % (11.7-14.4); White Blood Count 12.3 x10^3/uL (3.98-10.04)
[2025-01-09 05:41] LABS: ALBUMIN 3.3 g/dL (3.5-5.0); ANION GAP 11.3 MEQ/L (5-15); Calcium 8.1 mg/dL (8.4-10.2); Creatinine 1 0.92 mg/dL (0.52-1.04); EST GLOMERULAR FILTRATION RATE 72.6 ML/MIN; Potassium 3.2 mmol/L (3.5-5.1); Total Protein 5.5 g/dL (6.3-8.2)
[2025-01-09 05:59] LABS: PROCALCITONIN 0.156 ng/mL (0.030-0.080); TROPONIN < 0.012 ng/mL (0.000-0.033)
[2025-01-09] MEDS: Klor Con PO SCH (08:21)
[2025-01-09] MEDS: DUONEB 0.5-3 MG/3 ml Neb IH SCH (08:41)
[2025-01-09] MEDS: ENOXAPARIN SODIUM SQ SCH (09:31)
[2025-01-09] MEDS: Miralax Powder 17GM PACKET PO SCH (09:31)
[2025-01-09 12:58] VITALS: BP 114/63; RESP 18; TEMP 97.3
[2025-01-09] MEDS: Compazine 10 MG/2 ML IV PRN (13:05)
--- NOTE | 2025-01-09 13:41 | PCM.DS ---
Discharge Summary Date of Admission: 01/08/25 21:11 Date of Discharge: 01/09/25 Admitting Physician: ARIELLE YANEZ MD Primary Care Provider: [facility] Allergies Allergies ciprofloxacin [From Cipro] Allergy (Verified 01/08/25 15:34) Hives hydrocodone Allergy (Verified 01/09/25 14:10) [facility] Summary - Hospital Course Hospital Course: 01/09/25 59-year-old woman with a history of hypertension, carotid disease, anxiety, TIAs, and tobacco use. She presented on 01/08 with various complaints centered around abdominal pain, nausea, chest pain, headache, and presyncope. Of note, patient's history was confusing to unpack and variable on repeat telling us. However, patient's main complaint appears to be abdominal pain. She notes that for the last month, she has been unable to eat much as she gets nauseated whenever she tries to eat, and thinks that she has lost 20 pounds. For the last 3 weeks, she has been having lower blood pressure, and she has stopped taking her blood pressure medications. However, over that time, she has frequent lightheadedness and presyncope. For the last 2 days, she been having crampy bilateral lower quadrant abdominal pain, intermittent, not radiating. At times, she describes the nausea as new but then other times it is worsened from the baseline nausea that she has had for the last month. She notes that she has had no bowel movement for at least the last 4 days but maybe longer. She has also had intermittent left sided chest pressure, not associated with any changes in dyspnea or nausea, occurring at separate times from her abdominal pain, occurring at rest. She has no history of coronary disease. She says that she has felt constant dyspnea since a prior right sided carotid surgery in September, although upon further discussion, this appears to be more fatigue than dyspnea. She denies any cough, fevers, sore throat. Denies any dysuria. WBC improved today and 12.3. K+3.2 and replaced, will recheck at 2PM. Discussed labs and radiology results in detail. She appears to have a viral syndrome and CXR shows atypical infection. She will need to f/u with PCP and if sxs do not improved she will need to be referred to pulmonology. She is room air 94% and lung sounds are clear. She c/o generalized abd. pain and CT abd. pelvis showed she was constipated when she came in. She reports having several BM's overnight but has continued abd. pain. Will have pt f/u with GI OP for chronic abd. pain. Discussed left breast lesion and that pt needs a diagnostic mammogram OP for further evaluation. - Vitals & Intake/Output Vital Signs: Vital Signs Temperature 97.3 F 01/09/25 12:00 Pulse Rate 70 01/09/25 12:00 Respiratory Rate 18 01/09/25 12:00 Blood Pressure 114/63 01/09/25 12:00 O2 Sat by Pulse Oximetry 96 01/09/25 12:00 Intake & Output: Intake & Output 01/07/25 01/08/25 01/09/25 01/10/25 11:59 11:59 11:59 11:59 Intake Total 896 Balance 896 Weight 73 kg - Lab Result Diagrams: 01/09/25 04:30 01/09/25 14:30 Lab Results-Last 24 Hrs: Lab Results-Last 24 Hours 01/08/25 01/08/25 01/08/25 Range/Units 04:30 15:50 15:50 WBC 28.2 H* (3.98-10.04) x10^3/uL RBC 5.37 H (3.93-5.22) x10^6/uL Hgb 15.1 (11.2-15.7) g/dL Hct 45.7 H (34.1-44.9) % MCV 85.1 (79.4-94.8) fL MCH 28.1 (25.6-32.2) pg MCHC 33.0 (32.2-35.5) g/dL RDW 13.8 (11.7-14.4) % Plt Count 411 H (182-369) x10^3/uL MPV 10.4 (9.4-12.3) fL Gran % (34.0-71.1) % Immature Gran % (Auto) (0.001-0.429) % Nucleat RBC Rel Count (0.00-0.2) % Eos # (Auto) (0.04-0.36) x10^3/uL Immature Gran # (Auto) (0.001-0.031) x10^3u/L Absolute Lymphs (auto) (1.18-3.74) x10^3/uL Absolute Monos (auto) (0.24-0.86) x10^3/uL Absolute Nucleated RBC (0.00-0.012) x10^3u/L Lymphocytes % (19.3-51.7) % Monocytes % (4.7-12.5) % Eosinophils % (0.7-5.8) % Basophils % (0.1-1.2) % Absolute Granulocytes (1.56-6.13) x10^3/uL Segmented Neutrophils 89 H (34.0-71.1) % Lymphocytes (Manual) 8 L (19.3-51.7) % Monocytes (Manual) 3 L (4.7-12.5) % Basophils # (0.01-0.08) x10^3/uL Platelet Estimate NORMAL (NORMAL) RBC Morphology NORMAL Sodium 139 (135-145) mmol/L Potassium 4.2 (3.5-5.1) mmol/L Chloride 108 H (98-107) mmol/L Carbon Dioxide 18 L (22-30) mmol/L Anion Gap 17.2 H (5-15) MEQ/L BUN 10 (7-17) mg/dL Creatinine 1.08 H (0.52-1.04) mg/dL Estimated GFR 59.9 ML/MIN Glucose 98 (74-106) mg/dL Lactic Acid (0.4-2.0) Calcium 9.1 (8.4-10.2) mg/dL Magnesium (1.6-2.3) mg/dL Total Bilirubin 0.60 (0.2-1.3) mg/dL AST 33 (14-36) U/L ALT 22 (0-35) U/L Alkaline Phosphatase 99 (38-126) U/L Troponin I < 0.012 (0.000-0.033) ng/mL Serum Total Protein 6.8 (6.3-8.2) g/dL Albumin 4.3 (3.5-5.0) g/dL Amylase 37 (30-110) U/L Lipase 17 L (23-300) U/L Procalcitonin 0.156 H (0.030-0.080) ng/mL Urine Color (Yellow) Urine Appearance (Clear) Urine pH (4.6-8.0) Ur Specific [place] (1.005-1.030) Urine Protein (Negative) Urine Glucose (UA) (Negative) mg/dL Urine Ketones (Negative) Urine Blood (Negative) Urine Nitrite (Negative) Urine Bilirubin (Negative) Urine Urobilinogen (0.2) mg/dL Ur Leukocyte Esterase (Negative) U Hyaline Cast (Auto) (0-2) /LPF Urine Microscopic RBC (0-5) /HPF Urine Microscopic WBC (0-5) /HPF Ur Epithelial Cells (None Seen) /HPF Urine Bacteria (None Seen) /HPF Urine Culture Reflexed (NO) Influenza Type A Ag (NEGATIVE) Influenza Type B Ag (NEGATIVE) RSV (PCR) (NEGATIVE) SARS-CoV-2 (PCR) (NEGATIVE) 01/08/25 01/08/25 01/08/25 Range/Units 15:50 15:52 17:48 WBC (3.98-10.04) x10^3/uL RBC (3.93-5.22) x10^6/uL Hgb (11.2-15.7) g/dL Hct (34.1-44.9) % MCV (79.4-94.8) fL MCH (25.6-32.2) pg MCHC (32.2-35.5) g/dL RDW (11.7-14.4) % Plt Count (182-369) x10^3/uL MPV (9.4-12.3) fL Gran % (34.0-71.1) % Immature Gran % (Auto) (0.001-0.429) % Nucleat RBC Rel Count (0.00-0.2) % Eos # (Auto) (0.04-0.36) x10^3/uL Immature Gran # (Auto) (0.001-0.031) x10^3u/L Absolute Lymphs (auto) (1.18-3.74) x10^3/uL Absolute Monos (auto) (0.24-0.86) x10^3/uL Absolute Nucleated RBC (0.00-0.012) x10^3u/L Lymphocytes % (19.3-51.7) % Monocytes % (4.7-12.5) % Eosinophils % (0.7-5.8) % Basophils % (0.1-1.2) % Absolute Granulocytes (1.56-6.13) x10^3/uL Segmented Neutrophils (34.0-71.1) % Lymphocytes (Manual) (19.3-51.7) % Monocytes (Manual) (4.7-12.5) % Basophils # (0.01-0.08) x10^3/uL Platelet Estimate (NORMAL) RBC Morphology Sodium (135-145) mmol/L Potassium (3.5-5.1) mmol/L Chloride (98-107) mmol/L Carbon Dioxide (22-30) mmol/L Anion Gap (5-15) MEQ/L BUN (7-17) mg/dL Creatinine (0.52-1.04) mg/dL Estimated GFR ML/MIN Glucose (74-106) mg/dL Lactic Acid (0.4-2.0) Calcium (8.4-10.2) mg/dL Magnesium (1.6-2.3) mg/dL Total Bilirubin (0.2-1.3) mg/dL AST (14-36) U/L ALT (0-35) U/L Alkaline Phosphatase (38-126) U/L Troponin I < 0.012 (0.000-0.033) ng/mL Serum Total Protein (6.3-8.2) g/dL Albumin (3.5-5.0) g/dL Amylase (30-110) U/L Lipase (23-300) U/L Procalcitonin (0.030-0.080) ng/mL Urine Color Yellow (Yellow) Urine Appearance Clear (Clear) Urine pH 6.0 (4.6-8.0) Ur Specific [place] <=1.005 (1.005-1.030) Urine Protein Negative (Negative) Urine Glucose (UA) Negative (Negative) mg/dL Urine Ketones Negative (Negative) Urine Blood Negative (Negative) Urine Nitrite Negative (Negative) Urine Bilirubin Negative (Negative) Urine Urobilinogen 0.2 (0.2) mg/dL Ur Leukocyte Esterase Trace A (Negative) U Hyaline Cast (Auto) NONE SEEN (0-2) /LPF Urine Microscopic RBC 0-2 (0-5) /HPF Urine Microscopic WBC 0-2 (0-5) /HPF Ur Epithelial Cells None Seen (None Seen) /HPF Urine Bacteria None Seen (None Seen) /HPF Urine Culture Reflexed NO (NO) Influenza Type A Ag NEGATIVE (NEGATIVE) Influenza Type B Ag NEGATIVE (NEGATIVE) RSV (PCR) NEGATIVE (NEGATIVE) SARS-CoV-2 (PCR) NEGATIVE (NEGATIVE) 01/08/25 01/08/25 01/08/25 Range/Units 19:05 19:05 19:22 WBC (3.98-10.04) x10^3/uL RBC (3.93-5.22) x10^6/uL Hgb (11.2-15.7) g/dL Hct (34.1-44.9) % MCV (79.4-94.8) fL MCH (25.6-32.2) pg MCHC (32.2-35.5) g/dL RDW (11.7-14.4) % Plt Count (182-369) x10^3/uL MPV (9.4-12.3) fL Gran % (34.0-71.1) % Immature Gran % (Auto) (0.001-0.429) % Nucleat RBC Rel Count (0.00-0.2) % Eos # (Auto) (0.04-0.36) x10^3/uL Immature Gran # (Auto) (0.001-0.031) x10^3u/L Absolute Lymphs (auto) (1.18-3.74) x10^3/uL Absolute Monos (auto) (0.24-0.86) x10^3/uL Absolute Nucleated RBC (0.00-0.012) x10^3u/L Lymphocytes % (19.3-51.7) % Monocytes % (4.7-12.5) % Eosinophils % (0.7-5.8) % Basophils % (0.1-1.2) % Absolute Granulocytes (1.56-6.13) x10^3/uL Segmented Neutrophils (34.0-71.1) % Lymphocytes (Manual) (19.3-51.7) % Monocytes (Manual) (4.7-12.5) % Basophils # (0.01-0.08) x10^3/uL Platelet Estimate (NORMAL) RBC Morphology Sodium (135-145) mmol/L Potassium (3.5-5.1) mmol/L Chloride (98-107) mmol/L Carbon Dioxide (22-30) mmol/L Anion Gap (5-15) MEQ/L BUN (7-17) mg/dL Creatinine (0.52-1.04) mg/dL Estimated GFR ML/MIN Glucose (74-106) mg/dL Lactic Acid 0.9 (0.4-2.0) Calcium (8.4-10.2) mg/dL Magnesium (1.6-2.3) mg/dL Total Bilirubin (0.2-1.3) mg/dL AST (14-36) U/L ALT (0-35) U/L Alkaline Phosphatase (38-126) U/L Troponin I < 0.012 (0.000-0.033) ng/mL Serum Total Protein (6.3-8.2) g/dL Albumin (3.5-5.0) g/dL Amylase (30-110) U/L Lipase (23-300) U/L Procalcitonin 0.102 H (0.030-0.080) ng/mL Urine Color (Yellow) Urine Appearance (Clear) Urine pH (4.6-8.0) Ur Specific [place] (1.005-1.030) Urine Protein (Negative) Urine Glucose (UA) (Negative) mg/dL Urine Ketones (Negative) Urine Blood (Negative) Urine Nitrite (Negative) Urine Bilirubin (Negative) Urine Urobilinogen (0.2) mg/dL Ur Leukocyte Esterase (Negative) U Hyaline Cast (Auto) (0-2) /LPF Urine Microscopic RBC (0-5) /HPF Urine Microscopic WBC (0-5) /HPF Ur Epithelial Cells (None Seen) /HPF Urine Bacteria (None Seen) /HPF Urine Culture Reflexed (NO) Influenza Type A Ag (NEGATIVE) Influenza Type B Ag (NEGATIVE) RSV (PCR) (NEGATIVE) SARS-CoV-2 (PCR) (NEGATIVE) 01/09/25 01/09/25 01/09/25 Range/Units 04:30 04:30 04:59 WBC 12.3 H (3.98-10.04) x10^3/uL RBC 4.45 (3.93-5.22) x10^6/uL Hgb 12.6 (11.2-15.7) g/dL Hct 38.5 (34.1-44.9) % MCV 86.5 (79.4-94.8) fL MCH 28.3 (25.6-32.2) pg MCHC 32.7 (32.2-35.5) g/dL RDW 14.1 (11.7-14.4) % Plt Count 339 (182-369) x10^3/uL MPV 10.6 (9.4-12.3) fL Gran % 63.2 (34.0-71.1) % Immature Gran % (Auto) 0.3 (0.001-0.429) % Nucleat RBC Rel Count 0.0 (0.00-0.2) % Eos # (Auto) 0.15 (0.04-0.36) x10^3/uL Immature Gran # (Auto) 0.04 H (0.001-0.031) x10^3u/L Absolute Lymphs (auto) 3.48 (1.18-3.74) x10^3/uL Absolute Monos (auto) 0.80 (0.24-0.86) x10^3/uL Absolute Nucleated RBC 0.00 (0.00-0.012) x10^3u/L Lymphocytes % 28.3 (19.3-51.7) % Monocytes % 6.5 (4.7-12.5) % Eosinophils % 1.2 (0.7-5.8) % Basophils % 0.5 (0.1-1.2) % Absolute Granulocytes 7.76 H (1.56-6.13) x10^3/uL Segmented Neutrophils (34.0-71.1) % Lymphocytes (Manual) (19.3-51.7) % Monocytes (Manual) (4.7-12.5) % Basophils # 0.06 (0.01-0.08) x10^3/uL Platelet Estimate (NORMAL) RBC Morphology Sodium 140 (135-145) mmol/L Potassium 3.2 L D (3.5-5.1) mmol/L Chloride 111 H (98-107) mmol/L Carbon Dioxide 21 L (22-30) mmol/L Anion Gap 11.3 (5-15) MEQ/L BUN 10 (7-17) mg/dL Creatinine 0.92 (0.52-1.04) mg/dL Estimated GFR 72.6 ML/MIN Glucose 98 (74-106) mg/dL Lactic Acid (0.4-2.0) Calcium 8.1 L (8.4-10.2) mg/dL Magnesium 1.9 (1.6-2.3) mg/dL Total Bilirubin 1.00 (0.2-1.3) mg/dL AST 69 H (14-36) U/L ALT 27 (0-35) U/L Alkaline Phosphatase 86 (38-126) U/L Troponin I (0.000-0.033) ng/mL Serum Total Protein 5.5 L (6.3-8.2) g/dL Albumin 3.3 L (3.5-5.0) g/dL Amylase (30-110) U/L Lipase (23-300) U/L Procalcitonin (0.030-0.080) ng/mL Urine Color (Yellow) Urine Appearance (Clear) Urine pH (4.6-8.0) Ur Specific [place] (1.005-1.030) Urine Protein (Negative) Urine Glucose (UA) (Negative) mg/dL Urine Ketones (Negative) Urine Blood (Negative) Urine Nitrite (Negative) Urine Bilirubin (Negative) Urine Urobilinogen (0.2) mg/dL Ur Leukocyte Esterase (Negative) U Hyaline Cast (Auto) (0-2) /LPF Urine Microscopic RBC (0-5) /HPF Urine Microscopic WBC (0-5) /HPF Ur Epithelial Cells (None Seen) /HPF Urine Bacteria (None Seen) /HPF Urine Culture Reflexed (NO) Influenza Type A Ag (NEGATIVE) Influenza Type B Ag (NEGATIVE) RSV (PCR) (NEGATIVE) SARS-CoV-2 (PCR) (NEGATIVE) - Radiology Exams Ordered Rad Exams-Entire Visit: Radiology Procedures Category Date Time Status ABDOMEN AND PELVIS W/0 CONTRAS [CT] Stat Exams 01/08/25 15:57 Completed CHEST WITHOUT CONTRAST [CT] Stat Exams 01/08/25 16:33 Completed - Procedures and Test Procedures and Tests throughout Hospitalization: Therapy Orders & Screens 01/08/25 21:29 Respiratory Therapy Consult ONCE Comment: Reason For Exam: 01/09/25 08:43 Respiratory Therapy Assessment DAILY Comment: Diagnosis: abdominal pain, vomiting Discharge Exam General Appearance: no apparent distress, alert Neurologic Exam: alert, oriented x 3, cooperative, normal mood/affect, nml cerebellar function, sensation nml, No motor deficits Eye Exam: PERRL, EOMI, eyes nml inspection Ears, Nose, Throat Exam: normal ENT inspection, pharynx normal, moist mucous membranes Neck Exam: normal inspection, non-tender, supple, full range of motion Respiratory Exam: normal breath sounds, lungs clear, No respiratory distress Cardiovascular Exam: regular rate/rhythm, normal heart sounds Gastrointestinal/Abdomen Exam: soft, tenderness, No mass Pelvic Exam: deferred Rectal Exam: deferred Back Exam: normal inspection, normal range of motion, No CVA tenderness, No vertebral tenderness Extremity Exam: normal inspection, normal range of motion Skin Exam: normal color, warm, dry Final Diagnosis/Problem List - Final Discharge Diagnosis/Problem (1) Abdominal pain Current Visit: No Status: Acute Assessment & Plan: patient appears to have intermittent nausea for the past month, with worsening in the last 24 hours associated with cramping abdominal pain. She also reports weight loss and poor appetite. Only findings on CT scan appears to be constipation in the distal segment of the colon, and patient reports having no bowel movement for the last 3 to 5 days. The mural thickening that is seen on the CT scan is simply reactive to the colon loaded is not indicative of some kind of colitis, especially as she has no diarrhea to support this. She has a marked leukocytosis (see below), but perhaps this is only a stress reaction to the constipation? Although you have expect to see more signs of obstruction on the CT scan. Give Dulcolax suppository PRN MiraLAX Reassess after bowel movement if patient has resolution of her pain and nausea Start PRN Phenergan, compazine (patient notes no relief from Zofran) Start PRN morphine for the pain Not giving further Zosyn as no clinical evidence currently for colitis (see below) Start on clear liquid diet, advance as tolerated - 01/09- Narcotic pain meds stopped, GI OP f/u appointment made due to recent significant weight loss reported,+ BM x2 overnight per pt, WBC 12.3 Code(s): R10.9 - UNSPECIFIED ABDOMINAL PAIN (2) Pre-syncope Current Visit: Yes Status: Acute Assessment & Plan: patient has known history of carotid disease, and notes that she is needing to schedule second carotid procedure (first was done in September 2024). Follow-up with her vascular surgeon (3) HTN (hypertension) Current Visit: Yes Status: Chronic Assessment & Plan: patient notes that her blood pressure has been controlled off of blood pressure medications recently. Unable to get her home medications verified yet, but last list only included clonidine. Monitor off her BP meds at this time Code(s): I10 - ESSENTIAL (PRIMARY) HYPERTENSION (4) Hx-TIA (transient ischemic attack) Current Visit: Yes Status: Chronic Assessment & Plan: resume aspirin and atorvastatin - f/u with PCP Code(s): Z86.73 - PRSNL HX OF TIA (TIA), AND CEREB INFRC W/O RESID DEFICITS (5) ELLE (generalized anxiety disorder) Current Visit: Yes Status: Chronic Assessment & Plan: - Continue home meds Code(s): F41.1 - GENERALIZED ANXIETY DISORDER (6) Smoker Current Visit: Yes Status: Chronic Assessment & Plan: - advised cessation Code(s): F17.200 - NICOTINE DEPENDENCE, UNSPECIFIED, UNCOMPLICATED (7) Leukocytosis, unspecified Current Visit: Yes Status: Acute Assessment & Plan: - WBC 12.3 improved - appears to be viral related - radiology results reviewed - CBC, CMP reviewed Code(s): D72.829 - ELEVATED WHITE BLOOD CELL COUNT, UNSPECIFIED (8) Constipation Current Visit: No Status: Resolved Assessment & Plan: - BM x2 last night Code(s): K59.00 - CONSTIPATION, UNSPECIFIED (9) Hypokalemia Current Visit: Yes Status: Acute Assessment & Plan: - K+ 3.2- replaced- repeat 4.4 - Recheck this afternoon- if ok can d/c. Code(s): E87.6 - HYPOKALEMIA - Discharge Discharge Date: 01/09/25 Disposition: Home, Self-Care Condition: Stable Prescriptions: New Albuterol Sulfate [Albuterol Sulfate Hfa] 8.5 gm IH Q6HPRN PRN 30 Days #1 inhaler PRN Reason: Shortness Of Breath/Wheezing Continue Atorvastatin Calcium [Lipitor] 20 mg PO HS Clonidine HCl 0.1 mg [Clonidine 0.1 mg Tablet] 2 tab PO BID Quetiapine Fumarate [Seroquel] 300 mg PO HS PRN PRN PRN Reason: Insomnia Fluoxetine HCl 20 mg [Prozac 20 MG] 20 mg PO DAILY Ondansetron ODT 4 MG [Zofran Odt 4 mg] 4 mg PO BID PRN PRN PRN Reason: Nausea Fenofibrate 160 mg PO HS Aspirin EC 325 mg [Ecotrin 325 MG] 325 mg PO DAILY Acetaminophen 325 mg [Tylenol 325 mg] 650 mg PO Q4HPRN PRN PRN Reason: Pain Discontinued ALPRAZolam 1 MG [Xanax 1 mg] 1 mg PO TID Instructions: Nausea and vomiting in adults Follow up with: JESSICA MEDEL NP [NON-STAFF PHY W/O PRIVILEGES] - 05/26/25 2:30 pm HEIDI MCCARTHY NP [NON-STAFF PHY W/O PRIVILEGES] - 01/14/25 9:00 am Forms: Discharge Instructions
[2025-01-09] MEDS ORDERED: ZOFRAN ODT 4 MG PO PRN (13:48)
[2025-01-09] MEDS ORDERED: NORCO 5/325 MG PO PRN (13:48)
[2025-01-09] MEDS ORDERED: TYLENOL 325 MG PO PRN (13:48)
[2025-01-09 13:59] VITALS: PULSE 68; O2SAT 92
[2025-01-09] MEDS ORDERED: Seroquel 100 MG PO PRN (14:00)
[2025-01-09] MEDS ORDERED: XANAX 1 MG PO SCH (15:00)
[2025-01-09] MEDS: Ecotrin 325 MG PO SCH (15:04)
[2025-01-09] MEDS: Prozac 20 MG PO SCH (15:05)
[2025-01-09] MEDS: Protonix 40MG Tablet PO SCH (15:05)
[2025-01-09] MEDS ORDERED: Tricor 145 MG PO SCH (22:00)
[2025-01-09] MEDS ORDERED: ZOCOR 20MG PO SCH (22:00)
== END 2025-01-09 15:57 | disposition home or self-care (01) ==
LOC: ED 14:56 → MED SURG 21:11
PROVIDERS: ADMIT Internal Medicine; ATTEND Internal Medicine
DX: R10.30 Lower abdominal pain, unspecified (principal); R55 Syncope and collapse; I10 Essential (primary) hypertension; Z86.73 Personal history of transient ischemic attack (TIA), and cerebral infarction without residual deficits; F41.1 Generalized anxiety disorder; F17.200 Nicotine dependence, unspecified, uncomplicated; D72.829 Elevated white blood cell count, unspecified; K59.00 Constipation, unspecified; E87.6 Hypokalemia; Z79.899 Other long term (current) drug therapy; R07.9 Chest pain, unspecified; E78.5 Hyperlipidemia, unspecified
CPT/HCPCS: 0241U; 36415; 71250; 74176; 80053; 81001; 82150; 83605; 83690; 83735; 84132; 84145; 84484; 85025; 87040; 93005; 93041; 93268; 94640; 94760; 96374; 96375; 99285; G0378; Q3014; J1650; J2270; J2405; J2550; A9270-GY

== ENCOUNTER 2025-01-17 21:26 | Emergency (ER) | payer OTHER ==
--- NOTE | 2025-01-17 21:53 | ERPHSYRPT ---
- History of Present Illness Historian: patient Exam Limitations: no limitations Physician History: ThisPatient is a poor historian. She may have some electrolyte abnormalities. She is having some diarrhea. She was recently at our hospital about 10 days ago for the same thing.It appears that it is mainly diarrhea that the patient is having. I could not get much more of a history out of her. All she was saying is that she needed help.We did review her admission H&P and discharge H&P from the hospital. She was in for just 2 days.. She was hydrated and discharged home. I guess she has been having symptoms of diarrhea ever since.I do not see any antibiotic use that would be possibly associated with C. difficile.The patient was not a good historian as to all the history I could get. Allergies/Adverse Reactions: ciprofloxacin [From Cipro] Allergy (Verified 01/17/25 21:59) Hives hydrocodone Allergy (Verified 01/17/25 21:59) Hives Home Medications: Atorvastatin Calcium [Lipitor] 20 mg PO HS 07/02/23 [History] Clonidine HCl 0.1 mg [Clonidine 0.1 mg Tablet] 2 tab PO BID 07/02/23 [History] Fenofibrate 160 mg PO HS 07/02/23 [History] Fluoxetine HCl 20 mg [Prozac 20 MG] 20 mg PO DAILY 07/02/23 [History] Ondansetron ODT 4 MG [Zofran Odt 4 mg] 4 mg PO BID PRN PRN 07/02/23 [History] Quetiapine Fumarate [Seroquel] 300 mg PO HS PRN PRN 07/02/23 [History] Acetaminophen 325 mg [Tylenol 325 mg] 650 mg PO Q4HPRN PRN 09/27/24 [History] Aspirin EC 325 mg [Ecotrin 325 MG] 325 mg PO DAILY 09/27/24 [History] Hx Tetanus, Diphtheria Vaccination/Date Given: Yes Hx Influenza Vaccination/Date Given: No Hx Pneumococcal Vaccination/Date Given: No Travel Risk - Emerging Infectious Disease Are you exhibiting symptoms associated with any current EIDs: Yes Symptoms: Abdominal Pain, Headaches/Body Aches/ - Review of Systems Constitutional: Fatigue, Lethargy, Malaise Respiratory: No Symptoms Cardiac: Other (Hypotension) Abdominal/Gastrointestinal: Abdominal Pain, Diarrhea All Other Systems: Reviewed and Negative - Past Medical History Pertinent Past Medical History: Yes Neurological History: No Pertinent History ENT History: No Pertinent History Cardiac History: Coronary Artery Disease, High Cholesterol, Hypertension Respiratory History: No Pertinent History Endocrine Medical History: No Pertinent History Musculoskeletal History: Arthritis, Fractures GI Medical History: Diverticulitis, Diverticulosis, GERD, Gallbladder Disease History: No Pertinent History Psycho-Social History: Anxiety, Depression Female Reproductive Disorders: Endometriosis Other Medical History: Bowel BLOCKAGE 2012, insomnia, 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 ex lap. bowel obstruction repair. lt carotid endarterectomy. Significant Family History: no pertinent family hx - Social History Smoking Status: Current every day smoker How long have you smoked: 17 yrs Exposure to second hand smoke: Yes Drug Use: none - Social Determinants of Health Will the patient participate in the screening: Declined to provide - Nursing Vital Signs Nursing Vital Signs: Initial Vital Signs Pulse Rate 105 H 01/17/25 21:50 Respiratory Rate 30 H 01/17/25 21:50 Blood Pressure 170/106 01/17/25 21:50 O2 Sat by Pulse Oximetry 98 01/17/25 21:50 Pain Scale Pain Intensity 0 - Physical Exam General Appearance: moderate distress Eye Exam: PERRL/EOMI Ears, Nose, Throat Exam: other (Very dry mucous membranes.) Neck Exam: normal inspection Respiratory Exam: normal breath sounds Cardiovascular Exam: regular rate/rhythm Gastrointestinal/Abdomen Exam: soft, tenderness (Diffusely mildly tender), No distention, No mass Neurologic Exam: alert, other (Patient appears to be confused) Skin Exam: normal color Procedures - Central Line Timeout: Performed Central Line Lumen: triple Central Line Procedure: chlorahexadine prep, sterile drapes applied, sterile dressing applied Central Line Postion: subclavian (R) Anesthesia: 2% Lidocaine cc's of anesthesia: 4 Ultrasound Guided Placement: No Complications: none Central Line Post Position: sutured, good blood return, position confirmed w/ CXR Ordered Tests: Active Orders 24 hr Category Date Time Status CHEST 1 VIEW (PORTABLE) Stat Exams 01/18/25 01:01 Taken ARTERIAL BLOOD GASES Stat Lab 01/17/25 22:55 Ordered Alcohol [ETHYL ALCOHOL] Stat Lab 01/17/25 22:25 Completed BLOOD CULTURE Stat Lab 01/17/25 21:52 Ordered CBC W DIFF Stat Lab 01/17/25 22:25 Completed CMP Stat Lab 01/17/25 22:25 Completed CMP Stat Lab 01/18/25 03:02 Ordered CULTURE,URINE Stat Lab 01/17/25 22:35 Received LIPASE Stat Lab 01/17/25 22:25 Completed Lactic Acid Stat Lab 01/17/25 22:55 Ordered Lactic Acid Stat Lab 01/18/25 03:02 Ordered Manual Differential NC Stat Lab 01/17/25 22:25 Completed UA W/RFX UR CULTURE Stat Lab 01/17/25 22:35 Completed VENOUS BLOOD GAS Stat Lab 01/17/25 22:54 Completed VENOUS BLOOD GAS Stat Lab 01/18/25 00:04 Ordered Medication Summary Discontinued Medications Generic Name Dose Route Start Last Admin Trade Name Chuckq PRN Reason Stop Dose Admin Hydromorphone HCl 1 mg 01/17/25 23:56 01/17/25 23:58 Hydromorphone 1 Mg/1ml Inj IV 01/17/25 23:57 1 mg STAT ONE Administration Hydromorphone HCl Confirm 01/17/25 23:58 Hydromorphone 1 Mg/1ml Inj Administered 01/17/25 23:59 Dose 1 mg .ROUTE .STK-MED ONE Sodium Chloride 1,000 mls @ 999 mls/hr 01/17/25 21:59 01/17/25 23:25 Sodium Chloride 0.9% 1000 Ml IV 01/17/25 22:59 Infused .Q1H1M STA Infusion Sodium Chloride Confirm 01/17/25 22:14 Sodium Chloride 0.9% 1000 Ml Administered 01/17/25 22:15 Dose 1,000 mls @ ud .ROUTE .STK-MED ONE Sodium Chloride 1,000 mls @ 999 mls/hr 01/18/25 01:04 01/18/25 01:05 Sodium Chloride 0.9% 1000 Ml IV 01/18/25 03:04 999 mls/hr .Q1H1M STA Administration Sodium Chloride 1,000 mls @ 999 mls/hr 01/18/25 01:04 Sodium Chloride 0.9% 1000 Ml IV 01/18/25 03:04 .Q1H1M STA Sodium Chloride Confirm 01/18/25 01:04 Sodium Chloride 0.9% 1000 Ml Administered 01/18/25 01:05 Dose 1,000 mls @ ud .ROUTE .A [employer]'s Sleep ONE Prochlorperazine Edisylate 10 mg 01/17/25 22:20 01/17/25 22:23 Prochlorperazine Edisylate 10 Mg/2 Ml Vial IV 01/17/25 22:21 10 mg STAT ONE Administration Prochlorperazine Edisylate Confirm 01/17/25 22:22 Prochlorperazine Edisylate 10 Mg/2 Ml Vial Administered 01/17/25 22:23 Dose 10 mg .ROUTE .A Green Night's Sleep ONE Lab/Rad Data: Laboratory Result Diagrams 01/17/25 22:25 01/17/25 22:25 Laboratory Results 01/17/25 01/17/25 01/17/25 Range/Units 22:54 22:35 22:25 WBC (3.98-10.04) x10^3/uL RBC (3.93-5.22) x10^6/uL Hgb (11.2-15.7) g/dL Hct (34.1-44.9) % MCV (79.4-94.8) fL MCH (25.6-32.2) pg MCHC (32.2-35.5) g/dL RDW (11.7-14.4) % Plt Count (182-369) x10^3/uL MPV (9.4-12.3) fL Segmented Neutrophils (34.0-71.1) % Band Neutrophils (0.0-2.0) % Lymphocytes (Manual) (19.3-51.7) % Monocytes (Manual) (4.7-12.5) % Platelet Estimate (NORMAL) RBC Morphology Anisocytosis pO2/FiO2 Ratio 21 % VBG pH 7.29 L (7.32-7.42) VBG pCO2 at Pat Temp 24 L (42-55) mm/Hg VBG pO2 at Pat Temp 31 (25-40) mm/Hg VBG HCO3 11.5 L* (22-28) meq/L VBG O2 Sat (Hussein) 39.6 L (95-100) VBG Base Excess -13.1 L (-2.0-2.0) VBG Hemoglobin 14.9 VBG Carboxyhemoglobin 0.3 (0.0-6.9) % T HGB POC Potassium 4.4 (3.5-5.1) Sodium (135-145) mmol/L Potassium (3.5-5.1) mmol/L Chloride (98-107) mmol/L Carbon Dioxide (22-30) mmol/L BUN (7-17) mg/dL Creatinine (0.52-1.04) mg/dL Estimated GFR ML/MIN Glucose (74-106) mg/dL Calcium (8.4-10.2) mg/dL Total Bilirubin (0.2-1.3) mg/dL AST (14-36) U/L ALT (0-35) U/L Alkaline Phosphatase (38-126) U/L Serum Total Protein (6.3-8.2) g/dL Albumin (3.5-5.0) g/dL Lipase (23-300) U/L Urine Color Dark Yellow A (Yellow) Urine Appearance Turbid A (Clear) Urine pH 5.0 (4.6-8.0) Ur Specific [place] >=1.030 A (1.005-1.030) Urine Protein 100 A (Negative) Urine Glucose (UA) Negative (Negative) mg/dL Urine Ketones 15 A (Negative) Urine Blood Moderate A (Negative) Urine Nitrite Negative (Negative) Urine Bilirubin Large A (Negative) Urine Urobilinogen 1.0 A (0.2) mg/dL Ur Leukocyte Esterase Small A (Negative) Urine Microscopic RBC 21-50 A (0-5) /HPF Urine Microscopic WBC 11-20 A (0-5) /HPF Ur Epithelial Cells Moderate A (None Seen) /HPF Urine Bacteria Many A (None Seen) /HPF Urine Culture Reflexed ORDERED SEPARATELY (NO) Ethyl Alcohol < 10 (0-10) mg/dL 01/17/25 01/17/25 Range/Units 22:25 22:25 WBC 21.7 H (3.98-10.04) x10^3/uL RBC 5.97 H (3.93-5.22) x10^6/uL Hgb 16.6 H (11.2-15.7) g/dL Hct 50.7 H (34.1-44.9) % MCV 84.9 (79.4-94.8) fL MCH 27.8 (25.6-32.2) pg MCHC 32.7 (32.2-35.5) g/dL RDW 15.3 H (11.7-14.4) % Plt Count 475 H (182-369) x10^3/uL MPV 10.8 (9.4-12.3) fL Segmented Neutrophils 81 H (34.0-71.1) % Band Neutrophils 7 H (0.0-2.0) % Lymphocytes (Manual) 10 L (19.3-51.7) % Monocytes (Manual) 2 L (4.7-12.5) % Platelet Estimate INCREASED (NORMAL) RBC Morphology ABNORMAL Anisocytosis 1+ pO2/FiO2 Ratio % VBG pH (7.32-7.42) VBG pCO2 at Pat Temp (42-55) mm/Hg VBG pO2 at Pat Temp (25-40) mm/Hg VBG HCO3 (22-28) meq/L VBG O2 Sat (Hussein) (95-100) VBG Base Excess (-2.0-2.0) VBG Hemoglobin VBG Carboxyhemoglobin (0.0-6.9) % T HGB POC Potassium (3.5-5.1) Sodium 137 (135-145) mmol/L Potassium 4.6 (3.5-5.1) mmol/L Chloride 106 (98-107) mmol/L Carbon Dioxide < 5 L* (22-30) mmol/L BUN 35 H (7-17) mg/dL Creatinine 2.77 H (0.52-1.04) mg/dL Estimated GFR 19.4 ML/MIN Glucose 76 (74-106) mg/dL Calcium 9.2 (8.4-10.2) mg/dL Total Bilirubin 1.10 (0.2-1.3) mg/dL AST 69 H (14-36) U/L ALT 44 H (0-35) U/L Alkaline Phosphatase 212 H (38-126) U/L Serum Total Protein 7.6 (6.3-8.2) g/dL Albumin 4.4 (3.5-5.0) g/dL Lipase 257 (23-300) U/L Urine Color (Yellow) Urine Appearance (Clear) Urine pH (4.6-8.0) Ur Specific [place] (1.005-1.030) Urine Protein (Negative) Urine Glucose (UA) (Negative) mg/dL Urine Ketones (Negative) Urine Blood (Negative) Urine Nitrite (Negative) Urine Bilirubin (Negative) Urine Urobilinogen (0.2) mg/dL Ur Leukocyte Esterase (Negative) Urine Microscopic RBC (0-5) /HPF Urine Microscopic WBC (0-5) /HPF Ur Epithelial Cells (None Seen) /HPF Urine Bacteria (None Seen) /HPF Urine Culture Reflexed (NO) Ethyl Alcohol (0-10) mg/dL - Progress Progress Note: Patient was very dehydrated. I was able look at her labs from about 10 days ago and they are significantly worsened. Her BUN and creatinine have elevated significantly. Her bicarb is only 5. She does not have good peripheral IV access so I am going to go ahead and put a central line in her.I believe that her problems are probably from Diarrhea and acute dehydration. Her anion gap is 26 and her osmolality is 291.They were unable to get a ABG.We are trying [facility] for transfer. 01/17/25 23:57 01/18/25 00:02 01/18/25 01:56 - Departure Departure Disposition: Transfer Clinical Impression: Normal anion gap metabolic acidosis, Acute kidney injury, Dehydration Condition: Fair Critical Care Time: Yes Critical Care Time(excluding separately billable procedures): Critical 30-74 mins Referrals: [facility] [LOCATION] - Follow up/PCP as directed
[2025-01-17] MEDS ORDERED: Sodium Chloride 0.9% 1000 ML 1,000 ML ONE (22:14)
[2025-01-17] MEDS: Sodium Chloride 0.9% 1000 ML 1,000 ML IV STA (22:15)
[2025-01-17] MEDS ORDERED: Compazine 10 MG/2 ML ONE (22:22)
[2025-01-17] MEDS: Compazine 10 MG/2 ML IV ONE (22:23)
[2025-01-17 22:25] LABS: Hematocrit 50.7 % (34.1-44.9); Hemoglobin 16.6 g/dL (11.2-15.7); Mean Cell Volume 84.9 fL (79.4-94.8); Mean Corpuscular Hemoglobin 27.8 pg (25.6-32.2); Mean Corpuscular Hgb Concent. 32.7 g/dL (32.2-35.5); Mean Platelet Volume 10.8 fL (9.4-12.3); Platelet Count 475 x10^3/uL (182-369); Red Blood Count 5.97 x10^6/uL (3.93-5.22); Red Cell Distribution Width 15.3 % (11.7-14.4); White Blood Count 21.7 x10^3/uL (3.98-10.04)
[2025-01-17 22:38] LABS: ALBUMIN 4.4 g/dL (3.5-5.0); ALKALINE PHOSPHATASE 212 U/L (38-126); BLOOD UREA NITROGEN 35 mg/dL (7-17); CHLORIDE 106 mmol/L (98-107); Calcium 9.2 mg/dL (8.4-10.2); Creatinine 1 2.77 mg/dL (0.52-1.04); EST GLOMERULAR FILTRATION RATE 19.4 ML/MIN; Glucose 76 mg/dL (74-106); LIPASE 257 U/L (23-300); Potassium 4.6 mmol/L (3.5-5.1); SGOT/AST 69 U/L (14-36); SGPT/ALT 44 U/L (0-35); SODIUM 137 mmol/L (135-145); Total Protein 7.6 g/dL (6.3-8.2)
[2025-01-17 22:54] LABS: Carbon Dioxide < 5 mmol/L (22-30)
[2025-01-17 22:55] LABS: Appearance Turbid (Clear); Bilirubin Large (Negative); Blood Moderate (Negative); Glucose, Urine Negative (Negative); Ketones 15 (Negative); Leukocyte Esterase Small (Negative); Nitrite Negative (Negative); Protein,Urine Dip 100 (Negative); Specific Gravity >=1.030 (1.005-1.030)
[2025-01-17 23:01] LABS: Bacteria Many /HPF (None Seen); Epithelial Cells Moderate /HPF (None Seen); RBC 21-50 /HPF (0-5)
[2025-01-17 23:37] LABS: BAND 7 % (0.0-2.0); Lymphocytes 10 % (19.3-51.7); Monocyte 2 % (4.7-12.5); Neutrophils 81 % (34.0-71.1); Platelet Estimate INCREASED (NORMAL); Total Cells Counted 100
[2025-01-17 23:38] LABS: ANISOCYTOSIS 1+
[2025-01-17] MEDS: Hydromorphone 1 mg/ml Injection IV ONE (23:58)
[2025-01-17] MEDS ORDERED: Hydromorphone 1 mg/ml Injection ONE (23:58)
[2025-01-18 00:20] LABS: VBG pH 7.29 (7.32-7.42)
[2025-01-18 00:21] LABS: VBG BASE EXCESS -13.1 (-2.0-2.0); VBG HCO3- 11.5 meq/L (22-28); VBG HEMOGLOBIN 14.9; VBG O2 SATURATION 39.6 (95-100); VBG POTASSIUM 4.4 (3.5-5.1)
[2025-01-18 00:22] LABS: VBG CARBOXYHEMOGLOBIN 0.3 % T HGB (0.0-6.9)
[2025-01-18] MEDS ORDERED: Sodium Chloride 0.9% 1000 ML 1,000 ML ONE ×2 (01:04→03:22)
[2025-01-18] MEDS: Sodium Chloride 0.9% 1000 ML 1,000 ML IV STA ×2 (01:05→03:23)
[2025-01-18 03:07] VITALS: O2SAT 98
[2025-01-18 03:52] LABS: ALBUMIN 3.2 g/dL (3.5-5.0); ANION GAP 23.5 MEQ/L (5-15); BILIRUBIN,TOTAL 0.7 mg/dL (0.2-1.3); Calcium 7.6 mg/dL (8.4-10.2); Creatinine 1 1.97 mg/dL (0.52-1.04); EST GLOMERULAR FILTRATION RATE 29.1 ML/MIN; Potassium 4.6 mmol/L (3.5-5.1); Total Protein 5.8 g/dL (6.3-8.2)
[2025-01-18 04:07] VITALS: BP 129/79; PULSE 97; RESP 25
--- NOTE | 2025-01-18 08:24 | XRAY ---
Indication: Central line placement. Comparison: July 03, 2023 Portable chest demonstrates new right subclavian central venous access catheter with tip projecting over distal SVC. No pneumothorax. Lungs demonstrates new moderate bilateral mid to lower lung consolidating/nonconsolidating airspace disease without large effusion. Heart not enlarged. Bony thorax intact.
== END 2025-01-18 04:00 | disposition short-term general hospital (02) ==
LOC: ED 21:26
DX: N17.9 Acute kidney failure, unspecified (principal); E87.20 Acidosis, unspecified; E86.0 Dehydration; R19.7 Diarrhea, unspecified; E78.5 Hyperlipidemia, unspecified; I10 Essential (primary) hypertension; Z79.899 Other long term (current) drug therapy; Z72.0 Tobacco use
CPT/HCPCS: 36415; 36556; 36600; 71045; 80053; 81001; 82077; 82375; 82803; 82805; 83605; 83690; 85025; 87040; 87077; 87086; 87186; 96361; 96374; 96375; 99285; 99291; J1171